=== PATIENT | female | born 1955 | race Caucasian/White ===

== ENCOUNTER 2017-11-29 16:41 | Emergency (ER) | payer MEDICARE, MEDICAID, SELFPAY ==
[2017-11-29 16:53] VITALS: BP 89/53; PULSE 59; RESP 18; TEMP 36.4; O2SAT 95
--- NOTE | 2017-11-29 19:49 | PC.NURSE ---
pt reports no feeling in either foot. believes her shoes do not fit well and caused injury to right 5th toe. pt is amblitory.
--- NOTE | 2017-11-29 19:54 | ED.LOWEXIN ---
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 She thinks she stepped on a needle. She noted a sore yesterday. She denies any fevers, nausea, vomiting, diarrhea. She does have a history of wounds and single wound center. She denies any chest pain or shortness of breath. She states she has new shoes. She says her toe is warm and red. Related Data Home Medications Medication Instructions Recorded Confirmed gabapentin [Neurontin] 300 mg PO QID #0 10/07/12 baclofen 1 tab PO HSP PRN #0 09/23/16 multivitamin [Multiple Vitamins] #0 09/23/16 oxybutynin chloride [Ditropan XL] 15 mg PO QDAY #30 tab 09/23/16 amitriptyline 10 mg PO HS #0 09/21/17 clopidogrel 75 mg PO QDAY #0 09/21/17 Previous Rx's Medication Instructions Recorded tramadol 50 - 100 mg PO Q12HP #120 10/07/12 oxycodone 0 mg PO Q4HP PRN #180 tab 04/14/16 polyethylene glycol 3350 [Miralax] 17 gm PO QDAY PRN #90 gm 05/27/16 atenolol 25 mg PO QDAY #30 tab 01/14/17 albuterol sulfate [Ventolin HFA] 1 - 2 puff INH Q4H #1 inh 02/27/17 cholecalciferol (vitamin D3) 2,000 unit PO QDAY #90 cap 04/27/17 [Vitamin D3] furosemide [Lasix] 20 mg PO BID #60 tab 10/19/17 doxycycline monohydrate 100 mg PO BID 10 Days #20 cap 11/29/17 Allergies Allergy/AdvReac Type Severity Reaction Status Date / Time Aminoglycosides Allergy Mild ? Verified 11/29/17 21:15 [AMINOGLYCOSIDES] ibuprofen [IBUPROFEN] Allergy Mild ? TOXIC Verified 11/29/17 21:15 lamotrigine [LAMOTRIGINE] Allergy Mild ? Verified 11/29/17 21:15 Penicillins [PENICILLINS] Allergy Mild A BABY? Verified 11/29/17 21:15 quetiapine [QUETIAPINE] Allergy Mild ? Verified 11/29/17 21:15 sulfamethoxazole Allergy Unknown Verified 11/29/17 21:15 [From BACTRIM] trimethoprim [From BACTRIM] Allergy Unknown Verified 11/29/17 21:15 acetaminophen [ACETAMINOPHEN] AdvReac Mild ? Verified 11/29/17 21:15 gentamicin [GENTAMICIN] AdvReac Mild EYE Verified 11/29/17 21:15 DROPS-MAKE EYE INFX WORSE lisinopril [LISINOPRIL] AdvReac Mild CAUSES Verified 11/29/17 21:15 PAIN MUSCLE Review of Systems <ASHWIN Goetz - Last Filed: 11/29/17 23:56> Review of Systems GENERAL: Denies chills, fatigue, malaise, fever, sweats. HEENT: Denies sinus pain, ear pain, sore throat, difficulty swallowing, dizziness. RESPIRATORY: Denies dyspnea, cough, wheezing, hemoptysis, sputum. CARDIOVASCULAR: Denies chest pain, palpitations, orthopnea, edema, GASTROINTESTINAL: Denies nausea, vomiting, abdominal pain, diarrhea, constipation, melena. : Denies dysuria, frequency, incontinence, hematuria, urinary retention. MUSCULOSKELETAL: See HPI SKIN: See HPI NEUROLOGIC: Denies weakness, headache, numbness, change in speech, confusion, seizures, incoordination. PSYCHIATRIC: No concerning psychosocial issues. 12 point review of systems is negative except for those stated above Exam <ASHWIN Goetz - Last Filed: 11/29/17 23:56> Narrative Exam Narrative: GENERAL: This is a well-nourished, well-developed patient, in no acute distress HEAD: Atraumatic. Normocephalic. No temporal or scalp tenderness. EYES: Pupils equal round and reactive. Extraocular motions intact. No scleral icterus. No injection or drainage. ENT: Nose without bleeding, purulent drainage or septal hematoma. Throat without erythema, tonsillar hypertrophy or exudate. Uvula midline. Airway patent. NECK: Trachea midline. No JVD or lymphadenopathy. Supple, nontender, no meningeal signs. CARDIOVASCULAR: Regular rate and rhythm without murmurs, gallops, or rubs. RESPIRATORY: Clear to auscultation. Breath sounds equal bilaterally. No wheezes, rales, or rhonchi. GASTROINTESTINAL: Abdomen soft, non-tender, nondistended. No hepato-splenomegaly, or palpable masses. No guarding. EXTREMITIES: No clubbing, cyanosis, or edema. No joint tenderness, effusion, or edema noted. BACK: Nontender without deformity or crepitance. No flank tenderness. NEURO: AOx3. SKIN: 4 mm wound noted on lateral aspect of right 5th toe. Toe is erythematous and warm. Initial Vital Signs Initial Vital Signs: Vital Signs Temperature 97.5 F L 11/29/17 16:53 Pulse Rate 59 L 11/29/17 16:53 Respiratory Rate 18 11/29/17 16:53 Blood Pressure 89/53 L 11/29/17 16:53 Pulse Oximetry 95 11/29/17 16:53 <Juan Rios DO - Last Filed: 11/30/17 01:41> Initial Vital Signs Initial Vital Signs: Vital Signs Temperature 97.5 F L 11/29/17 16:53 Pulse Rate 59 L 11/29/17 16:53 Respiratory Rate 18 11/29/17 16:53 Blood Pressure 89/53 L 11/29/17 16:53 Pulse Oximetry 95 11/29/17 16:53 Course <ASHWIN GoetzBC - Last Filed: 11/29/17 23:56> Hospital Course: Patient presented with concern of wound on right toe. An x-ray was taken. I tried to obtain a wound culture, however there is no discharge to culture. I met with patient several times during her stay. Discussed at length with her return precautions of extending redness fever, nausea, vomiting, diarrhea. Orders Ordered: ED Orders 11/29/17 19:57 XR foot RT min 3V Stat 11/29/17 21:20 Wound Culture and Gram Stain Stat Discontinued Medications Doxycycline Hyclate (Vibramycin) 100 mg PO NOW ONE Stop: 11/29/17 21:09 Last Admin: 11/29/17 21:16 Dose: 100 mg Vital Signs - 8 hr 11/29/17 20:37 Pulse Rate 51 L Respiratory Rate 14 Blood Pressure [Left Wrist] 115/68 Pulse Oximetry 95 <Juan Rios DO - Last Filed: 11/30/17 01:41> Orders Ordered: ED Orders 11/29/17 19:57 XR foot RT min 3V Stat 11/29/17 21:20 Wound Culture and Gram Stain Stat Discontinued Medications Doxycycline Hyclate (Vibramycin) 100 mg PO NOW ONE Stop: 11/29/17 21:09 Last Admin: 11/29/17 21:16 Dose: 100 mg Vital Signs - 8 hr 11/29/17 20:37 Pulse Rate 51 L Respiratory Rate 14 Blood Pressure [Left Wrist] 115/68 Pulse Oximetry 95 MDM - Extremity Injury (Lower) <JAMIE Goetz - Last Filed: 11/29/17 23:56> Imaging Data right foot xray: Radiologist's impression: [address] [address] XRay Report Signed Patient: Roselia Mckay MR#: [id number] : 1955 Acct:[id number] Age/Sex: 62 / F Date of Service: 11/29/17 Loc: ED Accession Number: [id number] Procedure: XR foot RT min 3V Ordering Provider: Amalia Matthews PROCEDURE: XR FOOT RT MIN 3V INDICATIONS: wound 5th digit, ? FB- pt thinks there may be needle in it TECHNIQUE: 3 views of the foot were acquired. COMPARISON: None. FINDINGS: Bones: No fractures or dislocations. No suspicious bony lesions. Soft tissues: There soft tissue swelling of the left fifth digit. No unexpected radiopaque foreign bodies. IMPRESSION: Soft tissue swelling of the fifth digit. No unexpected radiopaque foreign bodies. Dictated by: Briana Blanco M.D. on 11/29/2017 at 20:26 Approved by: Briana Blanco M.D. on 11/29/2017 at 20:27 [facility] Narrative Medical decision making narrative: X-ray illustrated no foreign body. Given her exam I elected to start her on antibiotics for cellulitis. I chose doxycycline given her allergies and intolerance of other antibiotics. She states she tolerates doxycycline well. I discussed follow-up if worsening, extending redness, fever, nausea vomiting diarrhea. Patient states she will follow up with her primary care provider. Given her history of nonhealing wounds, I am concerned that she will need another wound care referral. Denies questions or concerns upon discharge. Discharge Plan Departure Patient Disposition: Home, Self-Care Clinical Impression: Cellulitis Discharge Date/Time: 11/29/17 21:55 Interventions: ED Discharge Assessment Last Done: 11/29/17 21:54 Instructions: DI for Cellulitis -- Adult Activity Restrictions/Additional Instructions: I am starting you on antibiotics for an infection. Aware sun screen with this antibiotic. I would like you to follow up with your primary care provider. Please be evaluated if the redness starts extending, your wound starts weeping or oozing, or you develop any fevers, nausea, vomiting, diarrhea. You can take [id number] medications as needed and able for pain. I would like you to rest your foot, keep it elevated, do not walk a lot at this point in time while it is healing. I would like you to be sure that you are wearing well fitting shoes that do not worsen the wound. Keep you have toe clean, dry and do not put it in dirty water as in a swimming pool, linares or tub. Prescriptions: New doxycycline monohydrate 100 mg capsule 100 mg PO BID 10 Days Qty: 20 RF: 0 No Action gabapentin [Neurontin] 300 MG capsule 300 mg PO QID Qty: 0 RF: 0 tramadol 50 MG tablet 50 - 100 mg PO Q12HP Qty: 120 RF: 0 oxycodone 5 MG tablet PO Q4HP PRNQty: 180 RF: 0 polyethylene glycol 3350 [Miralax] 17 GM powder in packet 17 gm PO QDAY PRNQty: 90 RF: 3 oxybutynin chloride [Ditropan XL] 15 MG tablet extended release 24hr 15 mg PO QDAY Qty: 30 RF: 3 baclofen 10 MG tablet 1 tab PO HSP PRNQty: 0 RF: 0 multivitamin [Multiple Vitamins] 1 EACH tablet Qty: 0 RF: 0 atenolol 25 MG tablet 25 mg PO QDAY Qty: 30 RF: 12 albuterol sulfate [Ventolin HFA] 90 MCG/PUFF HFA aerosol inhaler 1 - 2 puff INH Q4H Qty: 1 RF: 2 cholecalciferol (vitamin D3) [Vitamin D3] 2,000 UNIT capsule 2,000 unit PO QDAY Qty: 90 RF: 3 clopidogrel 75 MG tablet 75 mg PO QDAY Qty: 0 RF: 0 amitriptyline 10 MG tablet 10 mg PO HS Qty: 0 RF: 0 furosemide [Lasix] 20 MG tablet 20 mg PO BID Qty: 60 RF: 0 Referrals: Geovanna Lewis MD [Primary Care Provider] - <Juan Rios DO - Last Filed: 11/30/17 01:41> Cosign ED Attending Ceciature Attestation: I was immediately available in the department for consultation. Documentation has been reviewed. I agree with assessment and plan.
--- NOTE | 2017-11-29 19:57 | DI.RAD.S_ITS ---
PROCEDURE: XR FOOT RT MIN 3V INDICATIONS: wound 5th digit, ? FB- pt thinks there may be needle in it TECHNIQUE: 3 views of the foot were acquired. COMPARISON: None. FINDINGS: Bones: No fractures or dislocations. No suspicious bony lesions. Soft tissues: There soft tissue swelling of the left fifth digit. No unexpected radiopaque foreign bodies. IMPRESSION: Soft tissue swelling of the fifth digit. No unexpected radiopaque foreign bodies. Dictated by: Briana Blanco M.D. on 11/29/2017 at 20:26 Approved by: Briana Blanco M.D. on 11/29/2017 at 20:27
[2017-11-29 20:37] VITALS: BP 115/68; PULSE 51; RESP 14; O2SAT 95
[2017-11-29] MEDS: DOXYCYCLINE HYCLATE 100 MG TABLET PO (21:16)
--- NOTE | 2017-11-29 23:56 | ED_ITS ---
HPI - Extremity Injury (Lower) <Amalia Matthews, [employer]-BC - Last Filed: 11/29/17 23:56> General Chief Complaint: Extremity Injury, Lower Stated Complaint: right leg swelling,thinks needle stuck in right fo Time Seen by Provider: 11/29/17 18:37 Source: patient Mode of arrival: ambulatory Limitations: no limitations History of Present Illness HPI Narrative: Patient presents with chief complaint of 5th toe pain on her right foot. She thinks she stepped on a needle. She noted a sore yesterday. She denies any fevers, nausea, vomiting, diarrhea. She does have a history of wounds and single wound center. She denies any chest pain or shortness of breath. She states she has new shoes. She says her toe is warm and red. Related Data Home Medications Medication Instructions Recorded Confirmed gabapentin [Neurontin] 300 mg PO QID #0 10/07/12 baclofen 1 tab PO HSP PRN #0 09/23/16 multivitamin [Multiple Vitamins] #0 09/23/16 oxybutynin chloride [Ditropan XL] 15 mg PO QDAY #30 tab 09/23/16 amitriptyline 10 mg PO HS #0 09/21/17 clopidogrel 75 mg PO QDAY #0 09/21/17 Previous Rx's Medication Instructions Recorded tramadol 50 - 100 mg PO Q12HP #120 10/07/12 oxycodone 0 mg PO Q4HP PRN #180 tab 04/14/16 polyethylene glycol 3350 [Miralax] 17 gm PO QDAY PRN #90 gm 05/27/16 atenolol 25 mg PO QDAY #30 tab 01/14/17 albuterol sulfate [Ventolin HFA] 1 - 2 puff INH Q4H #1 inh 02/27/17 cholecalciferol (vitamin D3) 2,000 unit PO QDAY #90 cap 04/27/17 [Vitamin D3] furosemide [Lasix] 20 mg PO BID #60 tab 10/19/17 doxycycline monohydrate 100 mg PO BID 10 Days #20 cap 11/29/17 Allergies Allergy/AdvReac Type Severity Reaction Status Date / Time Aminoglycosides Allergy Mild ? Verified 11/29/17 21:15 [AMINOGLYCOSIDES] ibuprofen [IBUPROFEN] Allergy Mild ? TOXIC Verified 11/29/17 21:15 lamotrigine [LAMOTRIGINE] Allergy Mild ? Verified 11/29/17 21:15 Penicillins [PENICILLINS] Allergy Mild A BABY? Verified 11/29/17 21:15 quetiapine [QUETIAPINE] Allergy Mild ? Verified 11/29/17 21:15 sulfamethoxazole Allergy Unknown Verified 11/29/17 21:15 [From BACTRIM] trimethoprim [From BACTRIM] Allergy Unknown Verified 11/29/17 21:15 acetaminophen [ACETAMINOPHEN] AdvReac Mild ? Verified 11/29/17 21:15 gentamicin [GENTAMICIN] AdvReac Mild EYE Verified 11/29/17 21:15 DROPS-MAKE EYE INFX WORSE lisinopril [LISINOPRIL] AdvReac Mild CAUSES Verified 11/29/17 21:15 PAIN MUSCLE Review of Systems <ASHWIN Goetz - Last Filed: 11/29/17 23:56> Review of Systems GENERAL: Denies chills, fatigue, malaise, fever, sweats. HEENT: Denies sinus pain, ear pain, sore throat, difficulty swallowing, dizziness. RESPIRATORY: Denies dyspnea, cough, wheezing, hemoptysis, sputum. CARDIOVASCULAR: Denies chest pain, palpitations, orthopnea, edema, GASTROINTESTINAL: Denies nausea, vomiting, abdominal pain, diarrhea, constipation, melena. : Denies dysuria, frequency, incontinence, hematuria, urinary retention. MUSCULOSKELETAL: See HPI SKIN: See HPI NEUROLOGIC: Denies weakness, headache, numbness, change in speech, confusion, seizures, incoordination. PSYCHIATRIC: No concerning psychosocial issues. 12 point review of systems is negative except for those stated above Exam <ASHWIN Goetz - Last Filed: 11/29/17 23:56> Narrative Exam Narrative: GENERAL: This is a well-nourished, well-developed patient, in no acute distress HEAD: Atraumatic. Normocephalic. No temporal or scalp tenderness. EYES: Pupils equal round and reactive. Extraocular motions intact. No scleral icterus. No injection or drainage. ENT: Nose without bleeding, purulent drainage or septal hematoma. Throat without erythema, tonsillar hypertrophy or exudate. Uvula midline. Airway patent. NECK: Trachea midline. No JVD or lymphadenopathy. Supple, nontender, no meningeal signs. CARDIOVASCULAR: Regular rate and rhythm without murmurs, gallops, or rubs. RESPIRATORY: Clear to auscultation. Breath sounds equal bilaterally. No wheezes , rales, or rhonchi. GASTROINTESTINAL: Abdomen soft, non-tender, nondistended. No hepato-splenomegaly , or palpable masses. No guarding. EXTREMITIES: No clubbing, cyanosis, or edema. No joint tenderness, effusion, or edema noted. BACK: Nontender without deformity or crepitance. No flank tenderness. NEURO: AOx3. SKIN: 4 mm wound noted on lateral aspect of right 5th toe. Toe is erythematous and warm. Initial Vital Signs Initial Vital Signs: Vital Signs Temperature 97.5 F L 11/29/17 16:53 Pulse Rate 59 L 11/29/17 16:53 Respiratory Rate 18 11/29/17 16:53 Blood Pressure 89/53 L 11/29/17 16:53 Pulse Oximetry 95 11/29/17 16:53 <Juan Rios DO - Last Filed: 11/30/17 01:41> Initial Vital Signs Initial Vital Signs: Vital Signs Temperature 97.5 F L 11/29/17 16:53 Pulse Rate 59 L 11/29/17 16:53 Respiratory Rate 18 11/29/17 16:53 Blood Pressure 89/53 L 11/29/17 16:53 Pulse Oximetry 95 11/29/17 16:53 Course <ASHWIN GoetzBC - Last Filed: 11/29/17 23:56> Hospital Course: Patient presented with concern of wound on right toe. An x-ray was taken. I tried to obtain a wound culture, however there is no discharge to culture. I met with patient several times during her stay. Discussed at length with her return precautions of extending redness fever, nausea, vomiting, diarrhea. Orders Ordered: ED Orders 11/29/17 19:57 XR foot RT min 3V Stat 11/29/17 21:20 Wound Culture and Gram Stain Stat Discontinued Medications Doxycycline Hyclate (Vibramycin) 100 mg PO NOW ONE Stop: 11/29/17 21:09 Last Admin: 11/29/17 21:16 Dose: 100 mg Vital Signs - 8 hr 11/29/17 20:37 Pulse Rate 51 L Respiratory Rate 14 Blood Pressure [Left Wrist] 115/68 Pulse Oximetry 95 <Juan Rios DO - Last Filed: 11/30/17 01:41> Orders Ordered: ED Orders 11/29/17 19:57 XR foot RT min 3V Stat 11/29/17 21:20 Wound Culture and Gram Stain Stat Discontinued Medications Doxycycline Hyclate (Vibramycin) 100 mg PO NOW ONE Stop: 11/29/17 21:09 Last Admin: 11/29/17 21:16 Dose: 100 mg Vital Signs - 8 hr 11/29/17 20:37 Pulse Rate 51 L Respiratory Rate 14 Blood Pressure [Left Wrist] 115/68 Pulse Oximetry 95 MDM - Extremity Injury (Lower) <JAMIE Goetz - Last Filed: 11/29/17 23:56> Imaging Data right foot xray: Radiologist's impression: [address] [address] XRay Report Signed Patient: Roselia Mckay MR#: [id number] : 1955 Acct:[id number] Age/Sex: 62 / F Date of Service: 11/29/17 Loc: ED Accession Number: [id number] Procedure: XR foot RT min 3V Ordering Provider: Amalia Matthews PROCEDURE: XR FOOT RT MIN 3V INDICATIONS: wound 5th digit, ? FB- pt thinks there may be needle in it TECHNIQUE: 3 views of the foot were acquired. COMPARISON: None. FINDINGS: Bones: No fractures or dislocations. No suspicious bony lesions. Soft tissues: There soft tissue swelling of the left fifth digit. No unexpected radiopaque foreign bodies. IMPRESSION: Soft tissue swelling of the fifth digit. No unexpected radiopaque foreign bodies. Dictated by: Briana Blanco M.D. on 11/29/2017 at 20:26 Approved by: Briana Blanco M.D. on 11/29/2017 at 20:27 [facility] Narrative Medical decision making narrative: X-ray illustrated no foreign body. Given her exam I elected to start her on antibiotics for cellulitis. I chose doxycycline given her allergies and intolerance of other antibiotics. She states she tolerates doxycycline well. I discussed follow-up if worsening, extending redness, fever, nausea vomiting diarrhea. Patient states she will follow up with her primary care provider. Given her history of nonhealing wounds, I am concerned that she will need another wound care referral. Denies questions or concerns upon discharge. Discharge Plan Departure Patient Disposition: Home, Self-Care Clinical Impression: Cellulitis Discharge Date/Time: 11/29/17 21:55 Interventions: ED Discharge Assessment Last Done: 11/29/17 21:54 Instructions: DI for Cellulitis -- Adult Activity Restrictions/Additional Instructions: I am starting you on antibiotics for an infection. Aware sun screen with this antibiotic. I would like you to follow up with your primary care provider. Please be evaluated if the redness starts extending, your wound starts weeping or oozing, or you develop any fevers, nausea, vomiting, diarrhea. You can take [id number] medications as needed and able for pain. I would like you to rest your foot, keep it elevated, do not walk a lot at this point in time while it is healing. I would like you to be sure that you are wearing well fitting shoes that do not worsen the wound. Keep you have toe clean, dry and do not put it in dirty water as in a swimming pool, linares or tub. Prescriptions: New doxycycline monohydrate 100 mg capsule 100 mg PO BID 10 Days Qty: 20 RF: 0 No Action gabapentin [Neurontin] 300 MG capsule 300 mg PO QID Qty: 0 RF: 0 tramadol 50 MG tablet 50 - 100 mg PO Q12HP Qty: 120 RF: 0 oxycodone 5 MG tablet PO Q4HP PRNQty: 180 RF: 0 polyethylene glycol 3350 [Miralax] 17 GM powder in packet 17 gm PO QDAY PRNQty: 90 RF: 3 oxybutynin chloride [Ditropan XL] 15 MG tablet extended release 24hr 15 mg PO QDAY Qty: 30 RF: 3 baclofen 10 MG tablet 1 tab PO HSP PRNQty: 0 RF: 0 multivitamin [Multiple Vitamins] 1 EACH tablet Qty: 0 RF: 0 atenolol 25 MG tablet 25 mg PO QDAY Qty: 30 RF: 12 albuterol sulfate [Ventolin HFA] 90 MCG/PUFF HFA aerosol inhaler 1 - 2 puff INH Q4H Qty: 1 RF: 2 cholecalciferol (vitamin D3) [Vitamin D3] 2,000 UNIT capsule 2,000 unit PO QDAY Qty: 90 RF: 3 clopidogrel 75 MG tablet 75 mg PO QDAY Qty: 0 RF: 0 amitriptyline 10 MG tablet 10 mg PO HS Qty: 0 RF: 0 furosemide [Lasix] 20 MG tablet 20 mg PO BID Qty: 60 RF: 0 Referrals: Geovanna Lewis MD [Primary Care Provider] - <Juan Rios DO - Last Filed: 11/30/17 01:41> Cosign ED Attending Ceciature Attestation: I was immediately available in the department for consultation. Documentation has been reviewed. I agree with assessment and plan.
== END 2017-11-29 21:55 | disposition home or self-care (01) ==
PROVIDERS: Emergency Provider Nurse Practitioner Family; Family Provider Family Medicine; PCP Family Medicine
DX: L03.115 Cellulitis of right lower limb (principal)
CPT/HCPCS: 73630; 87070; 87075; 87077; 87147; 87186; 87205; 99283; 99284

== ENCOUNTER → 2017-12-02 08:26 | Outpatient (CLI) | payer MEDICARE, MEDICAID, SELFPAY | PROVIDERS: Family Provider Family Medicine; PCP Family Medicine; Visit Provider Internal Medicine | DX: L97.512 Non-pressure chronic ulcer of other part of right foot with fat layer exposed (principal); L03.031 Cellulitis of right toe; R73.9 Hyperglycemia, unspecified | CPT/HCPCS: 11042 ==

== ENCOUNTER → 2017-12-02 09:51 | Outpatient (CLI) | payer MEDICARE, MEDICAID, SELFPAY ==
[2017-12-02 11:09] LABS: Hemoglobin A1C% w Est Avg Glu 5.4 % (4.0-6.0)
== END ==
PROVIDERS: Family Provider Family Medicine; PCP Family Medicine; Visit Provider Internal Medicine
DX: E11.621 Type 2 diabetes mellitus with foot ulcer (principal)
CPT/HCPCS: 36415; 83036

== ENCOUNTER → 2017-12-07 14:44 | Outpatient (CLI) | payer MEDICARE, MEDICAID, SELFPAY ==
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
== END ==
PROVIDERS: Family Provider Family Medicine; PCP Family Medicine; Visit Provider Internal Medicine
DX: L97.512 Non-pressure chronic ulcer of other part of right foot with fat layer exposed (principal); L02.611 Cutaneous abscess of right foot; R73.9 Hyperglycemia, unspecified
CPT/HCPCS: 11042

== ENCOUNTER → 2017-12-15 10:05 | Outpatient (CLI) | payer MEDICARE, MEDICAID, SELFPAY ==
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
== END ==
PROVIDERS: Family Provider Family Medicine; PCP Family Medicine; Visit Provider Physician Assistant
DX: L97.512 Non-pressure chronic ulcer of other part of right foot with fat layer exposed (principal); L97.521 Non-pressure chronic ulcer of other part of left foot limited to breakdown of skin; L03.031 Cellulitis of right toe; L03.032 Cellulitis of left toe
CPT/HCPCS: 11042; 87070; 87077; 87186; 87205; 97597

== ENCOUNTER → 2017-12-18 15:50 | Outpatient (CLI) | payer MEDICARE, MEDICAID, SELFPAY ==
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
== END ==
PROVIDERS: Family Provider Family Medicine; PCP Family Medicine; Visit Provider Physician Assistant
DX: L97.512 Non-pressure chronic ulcer of other part of right foot with fat layer exposed (principal); L03.031 Cellulitis of right toe; R30.0 Dysuria; R53.81 Other malaise
CPT/HCPCS: 11042

== ENCOUNTER → 2017-12-22 09:01 | Outpatient (CLI) | payer MEDICARE, MEDICAID, SELFPAY | PROVIDERS: Family Provider Family Medicine; PCP Family Medicine; Visit Provider Internal Medicine | DX: L97.512 Non-pressure chronic ulcer of other part of right foot with fat layer exposed (principal); L02.611 Cutaneous abscess of right foot | CPT/HCPCS: 11042 ==

== ENCOUNTER → 2018-01-01 14:32 | Outpatient (CLI) | payer MEDICARE, MEDICAID, SELFPAY | PROVIDERS: Family Provider Family Medicine; PCP Family Medicine; Visit Provider Internal Medicine | DX: L97.512 Non-pressure chronic ulcer of other part of right foot with fat layer exposed (principal); Z91.19 Patient's noncompliance with other medical treatment and regimen | CPT/HCPCS: 11042; 87070; 87075; 87077; 87147; 87186; 87205 ==

== ENCOUNTER → 2018-01-07 09:28 | Outpatient (CLI) | payer MEDICARE, MEDICAID, SELFPAY ==
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
== END ==
PROVIDERS: Family Provider Family Medicine; PCP Family Medicine; Visit Provider Internal Medicine
DX: L97.512 Non-pressure chronic ulcer of other part of right foot with fat layer exposed (principal); B95.61 Methicillin susceptible Staphylococcus aureus infection as the cause of diseases classified elsewhere
CPT/HCPCS: 11042

== ENCOUNTER 2018-01-09 19:11 | Emergency (ER) | payer MEDICARE, MEDICAID, SELFPAY ==
[2018-01-09 19:24] VITALS: BP 106/69; PULSE 66; RESP 20; TEMP 37.1; O2SAT 95
--- NOTE | 2018-01-09 19:46 | DI.RAD.S_ITS ---
PROCEDURE: XR FOOT LT MIN 3V INDICATIONS: pain, injury TECHNIQUE: 3 views of the foot were acquired. COMPARISON: None. FINDINGS: Bones: No fractures or dislocations. No suspicious bony lesions. Ununited chronic accessory navicular. Mild first MTP joint degeneration. Tibiotalar and talonavicular degenerative joint disease. 3 mm lucency at the lateral base of the proximal phalanx of the great toe. Soft tissues: No tibiotalar joint effusion. Achilles tendon appears normal. IMPRESSION: No fracture. Degenerative changes as above. Dictated by: Kieran Shields M.D. on 01/09/2018 at 20:40 Approved by: Kieran Shields M.D. on 01/09/2018 at 20:43
--- NOTE | 2018-01-09 19:46 | DI.RAD.S_ITS ---
PROCEDURE: XR ANKLE LT MIN 3V INDICATIONS: pain/injury TECHNIQUE: 3 views of the ankle were acquired. COMPARISON: None. FINDINGS: Bones: No fractures or dislocations. Ankle mortise is normally aligned. No suspicious bony lesions. Mild posterior calcaneal spur. Chronic corticated 2 mm ossicle at the medial malleolus suggestive of chronic fracture fragment. Soft tissues: No tibiotalar joint effusion. Achilles tendon appears normal. IMPRESSION: No acute fracture identified. Soft tissue swelling primarily overlying the medial malleolus. 2 mm corticated ossicle adjacent to the medial malleolus appears chronic, possibly from remote trauma Dictated by: Kieran Shields M.D. on 01/09/2018 at 20:37 Approved by: Kieran Shields M.D. on 01/09/2018 at 20:39
--- NOTE | 2018-01-09 20:01 | ED.LOWEXIN ---
HPI - Extremity Injury (Lower) <Jody Gonzalez PA-C - Last Filed: 01/09/18 22:03> General Chief Complaint: Extremity Injury, Lower Stated Complaint: THINKS SHE BROKE HER LEFT LEG Time Seen by Provider: 01/09/18 19:42 Source: patient Mode of arrival: wheelchair Limitations: no limitations History of Present Illness HPI Narrative: This 62-year-old female comes in due to left ankle pain and swelling. She states that she contused her left ankle when walking up steps, she thinks about 5 days ago but others told her it was 10 days ago. She states she bumped the ankle and rolled the foot (thinks she inverted it but not sure). She thinks she bumped her knee as well. She states she did not fall, did not have any other injuries such as head contusion. She had been walking on it initially, but states she has had gradually worsening swelling, pain, and redness, now hurting on both sides of her ankle. She denies any other injury. She states that she has had chills, has not taken her temperature. She notes that she has been following at the wound Center for infection on her right foot and has been on doxycycline for staph infection. She states that it can be difficult for her to determine the pain level with new injuries due to her neuropathy. She states she has been otherwise well, denies any dyspnea, chest pain, appetite change. She states that she has had some redness in the left leg and notes the redness on her chester was present at her last wound Center visit Related Data Home Medications Medication Instructions Recorded Confirmed gabapentin [Neurontin] 300 mg PO QID #0 10/07/12 12/29/17 baclofen 1 tab PO HSP PRN #0 09/23/16 12/29/17 multivitamin [Multiple Vitamins] #0 09/23/16 12/29/17 oxybutynin chloride [Ditropan XL] 15 mg PO QDAY #30 tab 09/23/16 12/29/17 amitriptyline 10 mg PO HS #0 09/21/17 12/29/17 clopidogrel 75 mg PO QDAY #0 09/21/17 12/29/17 Previous Rx's Medication Instructions Recorded tramadol 50 - 100 mg PO Q12HP #120 10/07/12 oxycodone 0 mg PO Q4HP PRN #180 tab 04/14/16 polyethylene glycol 3350 [Miralax] 17 gm PO QDAY PRN #90 gm 05/27/16 atenolol 25 mg PO QDAY #30 tab 01/14/17 albuterol sulfate [Ventolin HFA] 1 - 2 puff INH Q4H #1 inh 02/27/17 cholecalciferol (vitamin D3) 2,000 unit PO QDAY #90 cap 04/27/17 [Vitamin D3] furosemide [Lasix] 20 mg PO BID #60 tab 10/19/17 venlafaxine ER 75 mg 75 mg PO TID #90 cap 12/29/17 capsule,extended release 24 hr Allergies Allergy/AdvReac Type Severity Reaction Status Date / Time Aminoglycosides Allergy Mild ? Verified 11/29/17 21:15 [AMINOGLYCOSIDES] ibuprofen [IBUPROFEN] Allergy Mild ? TOXIC Verified 11/29/17 21:15 lamotrigine [LAMOTRIGINE] Allergy Mild ? Verified 11/29/17 21:15 Penicillins [PENICILLINS] Allergy Mild A BABY? Verified 11/29/17 21:15 quetiapine [QUETIAPINE] Allergy Mild ? Verified 11/29/17 21:15 Sulfa (Sulfonamide Allergy Mild rash Verified 12/18/17 15:41 Antibiotics) sulfamethoxazole Allergy Unknown Verified 11/29/17 21:15 [From BACTRIM] trimethoprim [From BACTRIM] Allergy Unknown Verified 11/29/17 21:15 acetaminophen [ACETAMINOPHEN] AdvReac Mild ? Verified 11/29/17 21:15 gentamicin [GENTAMICIN] AdvReac Mild EYE Verified 11/29/17 21:15 DROPS-MAKE EYE INFX WORSE lisinopril [LISINOPRIL] AdvReac Mild CAUSES Verified 11/29/17 21:15 PAIN MUSCLE Review of Systems <Jody Gonzalez PA-C - Last Filed: 01/09/18 22:03> Review of Systems All systems reviewed & are unremarkable except as noted in HPI and below Exam <Jody Gonzalez PA-C - Last Filed: 01/09/18 22:03> Narrative Exam Narrative: GENERAL APPEARANCE: Patient sitting comfortably, in no distress. LUNGS: Clear to auscultation bilaterally. HEART: Rate and rhythm regular without murmur, normal S1 and S2, no S3 or S4. DERMATOLOGIC: Patchy pink erythema on the left inferior and mid central chester, as well as pink erythema on the left lateral >medial foot. She does have some skin breaks between the toes. Mildly warm to touch MUSCULOSKELETAL: Moderate left ankle effusion, more prominent over the lateral malleolus. She is tender around and inferior to the lateral malleolus more than on the medial. Minimally tender over the proximal lateral metatarsals, no point tenderness elsewhere. She has full range of motion at the knee, full range of motion at the ankle nonweightbearing with tenderness at endpoints, full plantar and dorsiflexion of the toes with strength intact against resistance. NEUROVASCULAR: Right foot toes are warm and pink, sensation grossly intact Initial Vital Signs Initial Vital Signs: Vital Signs Temperature 98.8 F 01/09/18 19:24 Pulse Rate 66 01/09/18 19:24 Respiratory Rate 20 01/09/18 19:24 Blood Pressure 106/69 01/09/18 19:24 Pulse Oximetry 95 01/09/18 19:24 <Juan Rios DO - Last Filed: 01/10/18 02:26> Initial Vital Signs Initial Vital Signs: Vital Signs Temperature 98.8 F 01/09/18 19:24 Pulse Rate 66 01/09/18 19:24 Respiratory Rate 20 01/09/18 19:24 Blood Pressure 106/69 01/09/18 19:24 Pulse Oximetry 95 01/09/18 19:24 Course <Jody Gonzalez PA-C - Last Filed: 01/09/18 22:03> Additional Information: Reviewed recent cultures from wound care which show Staph aureus susceptible to multiple antibiotics. Patient states that she only started doxycycline in the last 2 days, so reasonable for her to continue this and monitor the left chester erythema. Suspect her ankle pain and effusion are all from her recent injury. Discussed appearance of probable old fracture on the medial side as well as arthritis likely exacerbating her symptoms. She was able to ambulate with an Sukumar wrap and gel splint for the ankle. She is agreeable with return if any acutely worsening symptoms and margins of the erythema were inked so she can monitor Orders Ordered: ED Orders 01/09/18 19:46 XR ankle LT min 3V Stat XR foot LT min 3V Stat Vital Signs - 8 hr 01/09/18 19:24 01/09/18 20:19 07/14/18 21:45 Temperature 98.8 F 98.8 F Pulse Rate 66 66 60 Respiratory Rate 20 20 18 Blood Pressure 106/69 106/69 Blood Pressure [Left Arm] 97/60 Pulse Oximetry 95 95 93 <Juan Rios DO - Last Filed: 01/10/18 02:26> Orders Ordered: ED Orders 01/09/18 19:46 XR ankle LT min 3V Stat XR foot LT min 3V Stat Vital Signs - 8 hr 01/09/18 19:24 01/09/18 20:19 01/09/18 21:45 Temperature 98.8 F 98.8 F Pulse Rate 66 66 60 Respiratory Rate 18 Blood Pressure 106/69 106/69 Blood Pressure [Left Arm] 97/60 Pulse Oximetry 95 95 93 MDM - Extremity Injury (Lower) <Jody Gonzalez PA-C - Last Filed: 01/09/18 22:03> Imaging Data extremity: Radiologist's impression: [address] [address] XRay Report Signed Patient: Roselia Mckay MR#: [id number] : 1955 Acct:[id number] Age/Sex: 62 / F Date of Service: 01/09/18 Loc: ED Accession Number: [id number] Procedure: XR foot LT min 3V Ordering Provider: Jody Gonzalez P.A-C PROCEDURE: XR FOOT LT MIN 3V INDICATIONS: pain, injury TECHNIQUE: 3 views of the foot were acquired. COMPARISON: None. FINDINGS: Bones: No fractures or dislocations. No suspicious bony lesions. Ununited chronic accessory navicular. Mild first MTP joint degeneration. Tibiotalar and talonavicular degenerative joint disease. 3 mm lucency at the lateral base of the proximal phalanx of the great toe. Soft tissues: No tibiotalar joint effusion. Achilles tendon appears normal. IMPRESSION: No fracture. Degenerative changes as above. Dictated by: Kieran Shields M.D. on 01/09/2018 at 20:40 Approved by: Kieran Shields M.D. on 01/09/2018 at 20:[address] [address] XRay Report Signed Patient: Roselia Mckay MR#: [id number] : 1955 Acct:[id number] Age/Sex: 62 / F Date of Service: 01/09/18 Loc: ED Accession Number: [id number] Procedure: XR ankle LT min 3V Ordering Provider: Jody Gonzalez P.A-C PROCEDURE: XR ANKLE LT MIN 3V INDICATIONS: pain/injury TECHNIQUE: 3 views of the ankle were acquired. COMPARISON: None. FINDINGS: Bones: No fractures or dislocations. Ankle mortise is normally aligned. No suspicious bony lesions. Mild posterior calcaneal spur. Chronic corticated 2 mm ossicle at the medial malleolus suggestive of chronic fracture fragment. Soft tissues: No tibiotalar joint effusion. Achilles tendon appears normal. IMPRESSION: No acute fracture identified. Soft tissue swelling primarily overlying the medial malleolus. 2 mm corticated ossicle adjacent to the medial malleolus appears chronic, possibly from remote trauma Dictated by: Kieran Shields M.D. on 01/09/2018 at 20:37 Approved by: Kieran Shields M.D. on 01/09/2018 at 20:39 Discharge Plan Departure Patient Disposition: Home, Self-Care Clinical Impression: Ankle sprain, Cellulitis of left lower leg Discharge Date/Time: 01/09/18 22:04 Interventions: ED Discharge Assessment Last Done: 01/09/18 22:04 Instructions: DI for Cellulitis -- Adult, DI for Ankle Sprain Activity Restrictions/Additional Instructions: Gentle walking on your left foot and ankle is okay as tolerated, but try to avoid long periods on your feet and elevate your leg above your heart as much as possible. Wear the Sukumar wrap and ankle splint when you are walking. Continue your usual pain medicines. You should schedule a follow-up with your PCP in the next week or so to assess your progress and determine whether any further treatment is needed as it looked like you have some arthritis as well as perhaps an old fracture on the inside of your ankle on the x-ray today, but no acute findings. In addition, it looks like you may have an early skin infection on your left chester. Since you have already started on the doxycycline for your right foot, please continue this. You should return as we talked about if any acutely worsening symptoms, otherwise please follow up with wound care next week Prescriptions: No Action gabapentin [Neurontin] 300 MG capsule 300 mg PO QID Qty: 0 RF: 0 tramadol 50 MG tablet 50 - 100 mg PO Q12HP Qty: 120 RF: 0 oxycodone 5 MG tablet PO Q4HP PRNQty: 180 RF: 0 polyethylene glycol 3350 [Miralax] 17 GM powder in packet 17 gm PO QDAY PRNQty: 90 RF: 3 oxybutynin chloride [Ditropan XL] 15 MG tablet extended release 24hr 15 mg PO QDAY Qty: 30 RF: 3 baclofen 10 MG tablet 1 tab PO HSP PRNQty: 0 RF: 0 multivitamin [Multiple Vitamins] 1 EACH tablet Qty: 0 RF: 0 atenolol 25 MG tablet 25 mg PO QDAY Qty: 30 RF: 12 albuterol sulfate [Ventolin HFA] 90 MCG/PUFF HFA aerosol inhaler 1 - 2 puff INH Q4H Qty: 1 RF: 2 cholecalciferol (vitamin D3) [Vitamin D3] 2,000 UNIT capsule 2,000 unit PO QDAY Qty: 90 RF: 3 clopidogrel 75 MG tablet 75 mg PO QDAY Qty: 0 RF: 0 amitriptyline 10 MG tablet 10 mg PO HS Qty: 0 RF: 0 furosemide [Lasix] 20 MG tablet 20 mg PO BID Qty: 60 RF: 0 venlafaxine [Effexor XR] 75 mg capsule,extended release 24hr 75 mg PO TID Qty: 90 RF: 2 Referrals: Crow Haynes MD [Physician] - Geovanna Lewis MD [Primary Care Provider] - <Juan Rios DO - Last Filed: 01/10/18 02:26> Cosign ED Attending Bam Attestation: I was immediately available in the department for consultation. Documentation has been reviewed. I agree with assessment and plan.
[2018-01-09 20:19] VITALS: BP 106/69; PULSE 66; RESP 20; TEMP 37.1; O2SAT 95
[2018-01-09 21:45] VITALS: BP 97/60; PULSE 60; RESP 18; O2SAT 93
== END 2018-01-09 22:04 | disposition home or self-care (01) ==
PROVIDERS: Emergency Provider Internal Medicine; Family Provider Family Medicine; PCP Family Medicine
DX: S93.402A Sprain of unspecified ligament of left ankle, initial encounter (principal); L03.116 Cellulitis of left lower limb; W10.9XXA Fall (on) (from) unspecified stairs and steps, initial encounter
CPT/HCPCS: 29540; 73610; 73630; 99283

== ENCOUNTER → 2018-01-19 11:38 | Outpatient (CLI) | payer MEDICARE, MEDICAID, SELFPAY ==
--- NOTE | 2018-01-19 11:42 | DI.RAD.S_ITS ---
PROCEDURE: XR TIBIA FIBULA RT 2V INDICATIONS: Left tibia pain after fall on stairs. TECHNIQUE: 2 views of the tibia and fibula were acquired. COMPARISON: None. FINDINGS: Bones: No fractures or dislocations. No suspicious bony lesions. Soft tissues: No suspicious soft tissue calcifications or masses. IMPRESSION: No acute fracture or dislocation of the left tibia and fibula identified. Dictated by: Eran Connelly M.D. on 01/19/2018 at 12:23 Approved by: Eran Connelly M.D. on 01/19/2018 at 12:26
== END ==
PROVIDERS: Family Provider Family Medicine; PCP Family Medicine; Visit Provider Family Medicine
DX: M79.662 Pain in left lower leg (principal)
CPT/HCPCS: 73590

== ENCOUNTER → 2018-01-26 08:10 | Outpatient (CLI) | payer MEDICARE, MEDICAID, SELFPAY ==
--- NOTE | 2018-01-26 | DI.MRI.S_ITS ---
PROCEDURE: MR ANKLE LT WO CON INDICATIONS: SPRAIN OF LEFT ANKLE LIGAMENTS TECHNIQUE: Noncontrast sagittal T1 spin echo and T2 fast spin echo with fat saturation, axial proton density fast spin echo and T2 fast spin echo with fat saturation, coronal T1 spin echo and T2 fast spin echo with fat saturation through the ankle/hindfoot. COMPARISON: [facility], CR, XR TIBIA FIBULA LT 2V, 01/19/2018, 11:49. [facility], CR, XR FOOT LT MIN 3V, 01/09/2018, 19:29. [facility], CR, XR ANKLE LT MIN 3V, 01/09/2018, 19:26. FINDINGS: Image quality: Excellent. Bones and joints: There is dislocation of the talonavicular joint, with plantar flexion of the talus. This appears new since 01/09/18. There is diffuse marrow edema throughout the hindfoot and mid foot involving the calcaneus, talus, cuboid, cuneiforms and navicular which is probably reactive. Possible nondisplaced fracture line seen in the calcaneus image 24 series 10, image 14 series 5 although this is technically indeterminate. Elsewhere, no displaced or definite fracture line is seen. No hindfoot coalitions. No osteochondral injuries of the talar dome. Small tibiotalar joint effusion. There is diffuse hindfoot and midfoot joint degeneration There is extensive hindfoot and midfoot circumferential cellulitis, with superficial fascial fluid and diffuse subcutaneous edema. Medial structures: The posterior tibialis, flexor digitorum longus, and flexor hallucis longus tendons are intact. There is also fluid surrounding the posterior tibialis tendon in keeping with tenosynovitis. The posterior tibial neurovascular bundle appears normal within the tarsal tunnel, without extrinsic mass effect. The deep layer (anterior and posterior tibiotalar ligaments) and superficial layer (tibionavicular, tibiospring, and tibiocalcaneal ligaments) of the deltoid ligament appear normal. The spring ligament is not well seen distally and may be ruptured/acute sprain. Lateral structures: The anterior talofibular ligament is not well-visualized in keeping with rupture. The calcaneofibular and posterior talofibular ligaments appear intact. More superiorly, the anterior and posterior tibiofibular ligaments appear intact, as is the intermalleolar ligament. The tibiofibular syndesmosis is normal in width at 2 mm or less. The peroneus longus and brevis tendons appear intact. However, there is prominent fluid surrounding the peroneus longus and brevis tendons for example image 28 series 8. Adjacent bony peroneal tubercle and retrotrochlear prominence are normal in size. The sinus tarsi demonstrates normal fatty signal, without edema, fibrosis, or cyst formation. Visualized sinus tarsi components (cervical ligament, interosseous talocalcaneal ligament, roots of the inferior extensor retinaculum) appear normal. The calcaneonavicular and calcaneocuboid components of the bifurcate ligament appear intact. The dorsal calcaneocuboid ligament appears intact. Anterior structures: The tibialis anterior, extensor hallucis longus, and extensor digitorum longus tendons appear intact. The dorsal talonavicular ligament appears intact. Posterior and plantar structures: Achilles tendon is intact. Marked thickening and intrasubstance signal change of the medial band of the plantar fascia, image 13 series 6 and image 22 series 9. IMPRESSION: Diffuse marrow edema throughout the hindfoot and midfoot as detailed above, probably related to dislocation of the talonavicular joint, new since 01/09/18 Possible incomplete nondisplaced fracture line seen in the calcaneus although this is technically indeterminate. Also, the marrow edema pattern seems atypical for fracture although please correlate clinically for point tenderness. If there is persistent clinical suspicion for occult fracture, further evaluation with dedicated CT ankle could be performed. Severe diffuse circumferential subcutaneous edema. Medial band plantar fasciitis. Rupture of the anterior talofibular ligament. Posterior tibialis, peroneus longus and brevis tenosynovitis. Findings were personally telephoned and discussed with Dr. Pearl on 01/26/18. Dictated by: Kieran Shields M.D. on 01/26/2018 at 9:23 Approved by: Kieran Shields M.D. on 01/26/2018 at 10:30
== END ==
PROVIDERS: Family Provider Family Medicine; PCP Family Medicine; Visit Provider Podiatrist
DX: S93.05XA Dislocation of left ankle joint, initial encounter (principal); S93.492A Sprain of other ligament of left ankle, initial encounter; M72.2 Plantar fascial fibromatosis; R60.0 Localized edema
CPT/HCPCS: 73721

== ENCOUNTER → 2018-02-27 10:51 | Outpatient (CLI) | payer MEDICARE, MEDICAID, SELFPAY ==
[2018-02-27 11:37] LABS: Hematocrit 38.6 % (36-46); Mean Corpuscular HGB Conc 33.8 % (30-36); Mean Corpuscular Hemoglobin 32.4 PG (26-34); Mean Corpuscular Volume 95.8 fL (80-100); Platelet Count 203 X10^3/uL (150-400); Red Blood Cell Count 4.03 X10^6/uL (4.0-5.2); White Blood Cell Count 9.1 X10^3/uL (4.5-11.0)
[2018-02-27 11:53] LABS: BUN Creatinine Ratio 18.3 (6-22); Blood Urea Nitrogen 11 mg/dL (7-17); Calcium 10.5 mg/dL (8.4-10.2); Carbon Dioxide 32 mmol/L (22-32); Chloride 100 mmol/L (98-107); Cholesterol 209 mg/dL (140-199); Estimated Glomerular Filt Rate > 60.0 mL/min (>60); Glucose 101 mg/dL (80-110); HDL Cholesterol 41 mg/dL (40-60); HEMOLYSIS < 15 (0-50); LDL Cholesterol Calculated 139 mg/dL (<100); Potassium 4.3 mmol/L (3.4-5.1); Sodium 140 mmol/L (137-145); Triglycerides 146 mg/dL (35-150)
[2018-02-27 11:57] LABS: Hemoglobin A1C% w Est Avg Glu 5.4 % (4.0-6.0)
[2018-02-27 12:22] LABS: Thyroid Stimulating Hormone 2.01 uIU/mL (0.47-4.68)
[2018-02-27 13:04] LABS: RBC Morphology Normal Morphology
== END ==
PROVIDERS: Family Provider Family Medicine; PCP Family Medicine; Visit Provider Family Medicine
DX: I10 Essential (primary) hypertension (principal); E78.5 Hyperlipidemia, unspecified; R73.9 Hyperglycemia, unspecified
CPT/HCPCS: 36415; 80048; 80061; 83036; 84443; 85025

== ENCOUNTER 2018-04-14 17:28 | Emergency (ER) | payer MEDICARE, MEDICAID, SELFPAY ==
[2018-04-14 17:29] VITALS: BP 104/65; PULSE 61; RESP 20; TEMP 36.7; O2SAT 94; BMI 39.8
--- NOTE | 2018-04-14 18:52 | DI.RAD.S_ITS ---
PROCEDURE: XR TOE RT MIN 2V INDICATIONS: Red swollen 5th toe, with history of infection TECHNIQUE: 3 views of the right fifth toe(s) acquired. COMPARISON: [facility], , XR FOOT RT MIN 3V, 11/29/2017, 19:47. FINDINGS: Bones: No fractures or dislocations. No suspicious bony lesions. Metatarsus primus varus is present. Soft tissues: No suspicious soft tissue densities. IMPRESSION: No acute fracture. No osseous lesion. If clinical suspicion and/or symptoms persist, further assessment with repeat plainfilms, or advanced imaging (e.g., CT, MRI, or bone scan) may be helpful for further assessment. Dictated by: Iwona Hairston M.D. on 04/14/2018 at 19:33 Approved by: Iwona Hairston M.D. on 04/14/2018 at 19:34
[2018-04-14 19:17] LABS: Add Manual Diff / Slide Review NO; Basophils Percent Auto 0.2 % (0-2); Eosinophils Percent Auto 4.1 % (2-4); Hematocrit 39.8 % (36-46); Hemoglobin 13.3 g/dL (12.0-16.0); Lymphocytes Percent Auto 42.3 % (25-40); Mean Corpuscular HGB Conc 33.5 % (30-36); Mean Corpuscular Volume 95.5 fL (80-100); Monocytes Percent Auto 6.3 % (3-14); Neutrophils Absolute Auto 4600 /uL (3000-5900); Neutrophils Percent Auto 47.1 % (50-75); Platelet Count 189 X10^3/uL (150-400); Red Blood Cell Count 4.17 X10^6/uL (4.0-5.2); Red Cell Distribution Width 14.4 % (11.6-14.8); White Blood Cell Count 9.8 X10^3/uL (4.5-11.0)
[2018-04-14 19:28] LABS: Lactate (Lactic Acid) 2.8 mmol/L (0.7-2.1)
--- NOTE | 2018-04-14 19:51 | ED_ITS ---
HPI - Skin/Abscess/Foreign Bdy <Amalia Glovermer, GRINDER SET UP OPERATOR GEAR TOOL-BC - Last Filed: 04/14/18 23:01> General Chief complaint: Skin/Abscess/Foreign Body Stated complaint: SENT BY WOUND CARE FOR TOE Time Seen by Provider: 04/14/18 19:35 Source: patient Mode of arrival: ambulatory Limitations: no limitations History of Present Illness HPI narrative: patient presents from for concern of possible necrotic toe. She has a history of multiple wound infections. She denies any overt fevers, but complains of general malaise. She denies any nausea vomiting or diarrhea. She states she is concerned about infection in the bone of her toe. She has not seen wound care and a while and would like referral to wound care. Related Data Home Medications Medication Instructions Recorded Confirmed baclofen 1 tab PO HSP PRN #0 09/23/16 03/03/18 multivitamin [Multiple Vitamins] #0 09/23/16 03/03/18 oxybutynin chloride [Ditropan XL] 15 mg PO QDAY #30 tab 09/23/16 03/03/18 amitriptyline 10 mg PO HS #0 09/21/17 03/03/18 clopidogrel 75 mg PO QDAY #0 09/21/17 03/03/18 venlafaxine ER 75 mg 75 mg PO QID cap 01/19/18 03/03/18 capsule,extended release 24 hr famotidine 40 mg tablet 40 mg PO DAILY 03/03/18 03/03/18 gabapentin 300 mg capsule 600 mg PO QID #0 cap 03/03/18 03/03/18 Previous Rx's Medication Instructions Recorded tramadol 50 - 100 mg PO Q12HP #120 10/07/12 oxycodone 0 mg PO Q4HP PRN #180 tab 04/14/16 polyethylene glycol 3350 [Miralax] 17 gm PO QDAY PRN #90 gm 05/27/16 albuterol sulfate [Ventolin HFA] 1 - 2 puff INH Q4H #1 inh 02/27/17 cholecalciferol (vitamin D3) 2,000 unit PO QDAY #90 cap 04/27/17 [Vitamin D3] atenolol 25 mg PO QDAY #30 tab 02/16/18 furosemide [Lasix] 20 mg PO BID #60 tab 09/17/18 doxycycline hyclate 100 mg PO BID #20 tab 04/14/18 Allergies Allergy/AdvReac Type Severity Reaction Status Date / Time Aminoglycosides Allergy Mild ? Verified 03/03/18 14:07 [AMINOGLYCOSIDES] ibuprofen [IBUPROFEN] Allergy Mild ? TOXIC Verified 03/03/18 14:07 lamotrigine [LAMOTRIGINE] Allergy Mild ? Verified 03/03/18 14:07 Penicillins [PENICILLINS] Allergy Mild A BABY? Verified 03/03/18 14:07 quetiapine [QUETIAPINE] Allergy Mild ? Verified 03/03/18 14:07 Sulfa (Sulfonamide Allergy Mild rash Verified 03/03/18 14:07 Antibiotics) sulfamethoxazole Allergy Unknown Verified 03/03/18 14:07 [From BACTRIM] trimethoprim [From BACTRIM] Allergy Unknown Verified 03/03/18 14:07 acetaminophen [ACETAMINOPHEN] AdvReac Mild ? Verified 03/03/18 14:07 gentamicin [GENTAMICIN] AdvReac Mild EYE Verified 03/03/18 14:07 DROPS-MAKE EYE INFX WORSE lisinopril [LISINOPRIL] AdvReac Mild CAUSES Verified 03/03/18 14:07 PAIN MUSCLE Review of Systems <ASHWIN Goetz - Last Filed: 04/14/18 23:01> Review of Systems GENERAL: Denies chills, fatigue, malaise, fever, sweats. HEENT: Denies sinus pain, ear pain, sore throat, difficulty swallowing, dizziness. RESPIRATORY: Denies dyspnea, cough, wheezing, hemoptysis, sputum. CARDIOVASCULAR: Denies chest pain, palpitations, orthopnea, edema, GASTROINTESTINAL: Denies nausea, vomiting, abdominal pain, diarrhea, constipation, melena. : Denies dysuria, frequency, incontinence, hematuria, urinary retention. MUSCULOSKELETAL: see HPI SKIN: See HPI NEUROLOGIC: Denies weakness, headache, numbness, change in speech, confusion, seizures, incoordination. PSYCHIATRIC: No concerning psychosocial issues. 12 point review of systems is negative except for those stated above Exam <ASHWIN Goetz - Last Filed: 04/14/18 23:01> Narrative Exam Narrative: GENERAL: obese chronically ill-appearing female lying on stretcher HEAD: Atraumatic. Normocephalic. No temporal or scalp tenderness. EYES: Pupils equal round and reactive. Extraocular motions intact. No scleral icterus. No injection or drainage. ENT: Nose without bleeding, purulent drainage or septal hematoma. Throat without erythema, tonsillar hypertrophy or exudate. Uvula midline. Airway patent. NECK: Trachea midline. No JVD or lymphadenopathy. Supple, nontender, no meningeal signs. CARDIOVASCULAR: Regular rate and rhythm without murmurs, gallops, or rubs. RESPIRATORY: Clear to auscultation. Breath sounds equal bilaterally. No wheezes , rales, or rhonchi. GASTROINTESTINAL: Abdomen soft, Obese, non-tender, nondistended. No hepato- splenomegaly, or palpable masses. No guarding. EXTREMITIES: positive peripheral pulses right foot. Patient has good movement right toes. BACK: Nontender without deformity or crepitance. No flank tenderness. NEURO: AOx3. SKIN: 1 cm area of erythema with scant drainage noted lateral aspect of right 5th toe. No undermining noted. No open skin noted. Area is erythematous, but does not extend beyond toe. Initial Vital Signs Initial Vital Signs: Vital Signs Temperature 98.0 F 04/14/18 17:29 Pulse Rate 61 04/14/18 17:29 Respiratory Rate 20 04/14/18 17:29 Blood Pressure 104/65 04/14/18 17:29 Pulse Oximetry 94 04/14/18 17:29 <Juan Rios DO - Last Filed: 04/15/18 06:24> Initial Vital Signs Initial Vital Signs: Vital Signs Temperature 98.0 F 04/14/18 17:29 Pulse Rate 61 04/14/18 17:29 Respiratory Rate 20 04/14/18 17:29 Blood Pressure 104/65 04/14/18 17:29 Pulse Oximetry 94 04/14/18 17:29 Course <RAMIREZ Goetz-BC - Last Filed: 04/14/18 23:01> Orders Ordered: ED Orders 04/14/18 21:25 Wound Culture and Gram Stain Stat Discontinued Medications Sodium Chloride (Normal Saline 0.9%) 1,000 mls @ 1,000 mls/hr IV BOLUS ONE Stop: 04/14/18 21:01 Last Infusion: 04/14/18 21:09 Dose: 0 mls/hr Admin: 04/14/18 20:05 Dose: 1,000 mls/hr Vital Signs - 8 hr 04/14/18 17:29 04/14/18 20:09 04/14/18 21:03 Temperature 98.0 F Pulse Rate 61 64 60 Respiratory Rate 20 14 Blood Pressure 104/65 Blood Pressure [Left Arm] 95/57 L 98/51 L Pulse Oximetry 94 94 100 04/14/18 21:59 Temperature Pulse Rate 78 Respiratory Rate 18 Blood Pressure 103/65 Blood Pressure [Left Arm] Pulse Oximetry 98 <Juan Rios DO - Last Filed: 04/15/18 06:24> Orders Ordered: ED Orders 04/14/18 21:25 Wound Culture and Gram Stain Stat Discontinued Medications Sodium Chloride (Normal Saline 0.9%) 1,000 mls @ 1,000 mls/hr IV BOLUS ONE Stop: 04/14/18 21:01 Last Infusion: 04/14/18 21:09 Dose: 0 mls/hr Admin: 04/14/18 20:05 Dose: 1,000 mls/hr Vital Signs - 8 hr 04/14/18 17:29 04/14/18 20:09 04/14/18 21:03 Temperature 98.0 F Pulse Rate 61 64 60 Respiratory Rate 20 14 Blood Pressure 104/65 Blood Pressure [Left Arm] 95/57 L 98/51 L Pulse Oximetry 94 94 100 04/14/18 21:59 Temperature Pulse Rate 78 Respiratory Rate 18 Blood Pressure 103/65 Blood Pressure [Left Arm] Pulse Oximetry 98 MDM - Skin/Abscess/Foreign Bdy <RAMIREZ Goetz-BC - Last Filed: 04/14/18 23:01> Lab Data Result diagrams: 04/14/18 19:00 04/14/18 19:42 Lab Results 04/14/18 04/14/18 04/14/18 Range/Units 19:00 19:00 19:00 WBC 9.8 (4.5-11.0) X10^3/uL RBC 4.17 (4.0-5.2) X10^6/uL Hgb 13.3 (12.0-16.0) g/dL Hct 39.8 (36-46) % MCV 95.5 (80-100) fL MCH 32.0 (26-34) PG MCHC 33.5 (30-36) % RDW 14.4 (11.6-14.8) % Plt Count 189 (150-400) X10^3/uL Neut % (Auto) 47.1 L (50-75) % Lymph % (Auto) 42.3 H (25-40) % [place] % (Auto) 6.3 (3-14) % Eos % (Auto) 4.1 H (2-4) % Baso % (Auto) 0.2 (0-2) % Neut # (Auto) 4600 (1571-6615) /uL PT (10.1-12.7) SECONDS INR (0.9-1.3) APTT (26.4-36.2) SECONDS Sodium (137-145) mmol/L Potassium (3.4-5.1) mmol/L Chloride (98-107) mmol/L Carbon Dioxide (22-32) mmol/L BUN (7-17) mg/dL Creatinine (0.52-1.04) mg/dL Estimated GFR (>60) mL/min BUN/Creatinine Ratio (6-22) Glucose (80-110) mg/dL Lactate 2.8 H (0.7-2.1) mmol/L Calcium (8.4-10.2) mg/dL Total Bilirubin (0.2-1.3) mg/dL AST (14-36) IU/L ALT (9-52) IU/L Alkaline Phosphatase (38-126) U/L Total Protein (6.3-8.2) g/dL Albumin (3.5-5.0) g/dL Globulin (1.7-4.1) g/dL Albumin/Globulin Ratio (1.0-2.8) Lipase (23-300) U/L Procalcitonin < 0.05 (<0.5) ng/mL Urine Color Urine Appearance Urine pH (4.5-8.0) Ur Specific [place] (1.000-1.035) Urine Protein (Negative) Urine Glucose (UA) (Normal) g/dL Urine Ketones (NEGATIVE) Urine Occult Blood (Negative) Urine Nitrate (Negative) Urine Bilirubin (NEGATIVE) Urine Urobilinogen (0.2) E.U./dL Ur Leukocyte Esterase (NEGATIVE) Urine RBC (0-5/HPF) Urine WBC (0-5/HPF) Ur Squamous Epith Cells Urine Bacteria (None) Ur Culture Indicated? Micro UA Comment 04/14/18 04/14/18 04/14/18 Range/Units 19:42 19:42 20:05 WBC (4.5-11.0) X10^3/uL RBC (4.0-5.2) X10^6/uL Hgb (12.0-16.0) g/dL Hct (36-46) % MCV (80-100) fL MCH (26-34) PG MCHC (30-36) % RDW (11.6-14.8) % Plt Count (150-400) X10^3/uL Neut % (Auto) (50-75) % Lymph % (Auto) (25-40) % [place] % (Auto) (3-14) % Eos % (Auto) (2-4) % Baso % (Auto) (0-2) % Neut # (Auto) (9963-1132) /uL PT 9.6 L (10.1-12.7) SECONDS INR 0.9 (0.9-1.3) APTT 36 (26.4-36.2) SECONDS Sodium 140 (137-145) mmol/L Potassium 4.1 (3.4-5.1) mmol/L Chloride 102 (98-107) mmol/L Carbon Dioxide 29 (22-32) mmol/L BUN 18 H (7-17) mg/dL Creatinine 0.50 L (0.52-1.04) mg/dL Estimated GFR > 60.0 (>60) mL/min BUN/Creatinine Ratio 36.0 H (6-22) Glucose 128 H (80-110) mg/dL Lactate (0.7-2.1) mmol/L Calcium 9.9 (8.4-10.2) mg/dL Total Bilirubin 0.3 (0.2-1.3) mg/dL AST 24 (14-36) IU/L ALT 20 (9-52) IU/L Alkaline Phosphatase 107 (38-126) U/L Total Protein 7.6 (6.3-8.2) g/dL Albumin 4.3 (3.5-5.0) g/dL Globulin 3.3 (1.7-4.1) g/dL Albumin/Globulin Ratio 1.3 (1.0-2.8) Lipase < 10 L (23-300) U/L Procalcitonin (<0.5) ng/mL Urine Color Yellow Urine Appearance Clear Urine pH 5.5 (4.5-8.0) Ur Specific [place] 1.010 (1.000-1.035) Urine Protein Negative (Negative) Urine Glucose (UA) Negative (Normal) g/dL Urine Ketones Negative (NEGATIVE) Urine Occult Blood Negative (Negative) Urine Nitrate Negative (Negative) Urine Bilirubin Negative (NEGATIVE) Urine Urobilinogen 0.2 (0.2) E.U./dL Ur Leukocyte Esterase Trace H (NEGATIVE) Urine RBC 0-1/hpf (0-5/HPF) Urine WBC 0-1/hpf (0-5/HPF) Ur Squamous Epith Cells 0-1 /hpf Urine Bacteria Few (2-10) H (None) Ur Culture Indicated? Specimen cultured Micro UA Comment Not Reportable 04/14/18 Range/Units 21:17 WBC (4.5-11.0) X10^3/uL RBC (4.0-5.2) X10^6/uL Hgb (12.0-16.0) g/dL Hct (36-46) % MCV (80-100) fL MCH (26-34) PG MCHC (30-36) % RDW (11.6-14.8) % Plt Count (150-400) X10^3/uL Neut % (Auto) (50-75) % Lymph % (Auto) (25-40) % [place] % (Auto) (3-14) % Eos % (Auto) (2-4) % Baso % (Auto) (0-2) % Neut # (Auto) (8243-0175) /uL PT (10.1-12.7) SECONDS INR (0.9-1.3) APTT (26.4-36.2) SECONDS Sodium (137-145) mmol/L Potassium (3.4-5.1) mmol/L Chloride (98-107) mmol/L Carbon Dioxide (22-32) mmol/L BUN (7-17) mg/dL Creatinine (0.52-1.04) mg/dL Estimated GFR (>60) mL/min BUN/Creatinine Ratio (6-22) Glucose (80-110) mg/dL Lactate 1.0 (0.7-2.1) mmol/L Calcium (8.4-10.2) mg/dL Total Bilirubin (0.2-1.3) mg/dL AST (14-36) IU/L ALT (9-52) IU/L Alkaline Phosphatase (38-126) U/L Total Protein (6.3-8.2) g/dL Albumin (3.5-5.0) g/dL Globulin (1.7-4.1) g/dL Albumin/Globulin Ratio (1.0-2.8) Lipase (23-300) U/L Procalcitonin (<0.5) ng/mL Urine Color Urine Appearance Urine pH (4.5-8.0) Ur Specific [place] (1.000-1.035) Urine Protein (Negative) Urine Glucose (UA) (Normal) g/dL Urine Ketones (NEGATIVE) Urine Occult Blood (Negative) Urine Nitrate (Negative) Urine Bilirubin (NEGATIVE) Urine Urobilinogen (0.2) E.U./dL Ur Leukocyte Esterase (NEGATIVE) Urine RBC (0-5/HPF) Urine WBC (0-5/HPF) Ur Squamous Epith Cells Urine Bacteria (None) Ur Culture Indicated? Micro UA Comment MDM Narrative Medical decision making narrative: Patient presents with chief complaint of wound on lateral aspect of right 5th toe. She has no signs of systemic infection. She is afebrile, hemodynamically stable nontoxic appearing. She does not have an elevated procalcitonin. Her repeat lactate was within normal limits. The so placed her on doxycycline given her allergies to multiple medications. Doxycycline will provide MRSA coverage given her history. I discussed at length follow up with wound care as well as following up for any signs of systemic illness. She had no questions or concerns upon discharge. Wound culture was taken and sent. <Juan Rios, DO - Last Filed: 04/15/18 06:24> Lab Data Lab Results 04/14/18 04/14/18 04/14/18 Range/Units 19:00 19:00 19:00 WBC 9.8 (4.5-11.0) X10^3/uL RBC 4.17 (4.0-5.2) X10^6/uL Hgb 13.3 (12.0-16.0) g/dL Hct 39.8 (36-46) % MCV 95.5 (80-100) fL MCH 32.0 (26-34) PG MCHC 33.5 (30-36) % RDW 14.4 (11.6-14.8) % Plt Count 189 (150-400) X10^3/uL Neut % (Auto) 47.1 L (50-75) % Lymph % (Auto) 42.3 H (25-40) % [place] % (Auto) 6.3 (3-14) % Eos % (Auto) 4.1 H (2-4) % Baso % (Auto) 0.2 (0-2) % Neut # (Auto) 4600 (7959-0502) /uL PT (10.1-12.7) SECONDS INR (0.9-1.3) APTT (26.4-36.2) SECONDS Sodium (137-145) mmol/L Potassium (3.4-5.1) mmol/L Chloride (98-107) mmol/L Carbon Dioxide (22-32) mmol/L BUN (7-17) mg/dL Creatinine (0.52-1.04) mg/dL Estimated GFR (>60) mL/min BUN/Creatinine Ratio (6-22) Glucose (80-110) mg/dL Lactate 2.8 H (0.7-2.1) mmol/L Calcium (8.4-10.2) mg/dL Total Bilirubin (0.2-1.3) mg/dL AST (14-36) IU/L ALT (9-52) IU/L Alkaline Phosphatase (38-126) U/L Total Protein (6.3-8.2) g/dL Albumin (3.5-5.0) g/dL Globulin (1.7-4.1) g/dL Albumin/Globulin Ratio (1.0-2.8) Lipase (23-300) U/L Procalcitonin < 0.05 (<0.5) ng/mL Urine Color Urine Appearance Urine pH (4.5-8.0) Ur Specific [place] (1.000-1.035) Urine Protein (Negative) Urine Glucose (UA) (Normal) g/dL Urine Ketones (NEGATIVE) Urine Occult Blood (Negative) Urine Nitrate (Negative) Urine Bilirubin (NEGATIVE) Urine Urobilinogen (0.2) E.U./dL Ur Leukocyte Esterase (NEGATIVE) Urine RBC (0-5/HPF) Urine WBC (0-5/HPF) Ur Squamous Epith Cells Urine Bacteria (None) Ur Culture Indicated? Micro UA Comment 04/14/18 04/14/18 04/14/18 Range/Units 19:42 19:42 20:05 WBC (4.5-11.0) X10^3/uL RBC (4.0-5.2) X10^6/uL Hgb (12.0-16.0) g/dL Hct (36-46) % MCV (80-100) fL MCH (26-34) PG MCHC (30-36) % RDW (11.6-14.8) % Plt Count (150-400) X10^3/uL Neut % (Auto) (50-75) % Lymph % (Auto) (25-40) % [place] % (Auto) (3-14) % Eos % (Auto) (2-4) % Baso % (Auto) (0-2) % Neut # (Auto) (6747-3688) /uL PT 9.6 L (10.1-12.7) SECONDS INR 0.9 (0.9-1.3) APTT 36 (26.4-36.2) SECONDS Sodium 140 (137-145) mmol/L Potassium 4.1 (3.4-5.1) mmol/L Chloride 102 (98-107) mmol/L Carbon Dioxide 29 (22-32) mmol/L BUN 18 H (7-17) mg/dL Creatinine 0.50 L (0.52-1.04) mg/dL Estimated GFR > 60.0 (>60) mL/min BUN/Creatinine Ratio 36.0 H (6-22) Glucose 128 H (80-110) mg/dL Lactate (0.7-2.1) mmol/L Calcium 9.9 (8.4-10.2) mg/dL Total Bilirubin 0.3 (0.2-1.3) mg/dL AST 24 (14-36) IU/L ALT 20 (9-52) IU/L Alkaline Phosphatase 107 (38-126) U/L Total Protein 7.6 (6.3-8.2) g/dL Albumin 4.3 (3.5-5.0) g/dL Globulin 3.3 (1.7-4.1) g/dL Albumin/Globulin Ratio 1.3 (1.0-2.8) Lipase < 10 L (23-300) U/L Procalcitonin (<0.5) ng/mL Urine Color Yellow Urine Appearance Clear Urine pH 5.5 (4.5-8.0) Ur Specific [place] 1.010 (1.000-1.035) Urine Protein Negative (Negative) Urine Glucose (UA) Negative (Normal) g/dL Urine Ketones Negative (NEGATIVE) Urine Occult Blood Negative (Negative) Urine Nitrate Negative (Negative) Urine Bilirubin Negative (NEGATIVE) Urine Urobilinogen 0.2 (0.2) E.U./dL Ur Leukocyte Esterase Trace H (NEGATIVE) Urine RBC 0-1/hpf (0-5/HPF) Urine WBC 0-1/hpf (0-5/HPF) Ur Squamous Epith Cells 0-1 /hpf Urine Bacteria Few (2-10) H (None) Ur Culture Indicated? Specimen cultured Micro UA Comment Not Reportable 04/14/18 Range/Units 21:17 WBC (4.5-11.0) X10^3/uL RBC (4.0-5.2) X10^6/uL Hgb (12.0-16.0) g/dL Hct (36-46) % MCV (80-100) fL MCH (26-34) PG MCHC (30-36) % RDW (11.6-14.8) % Plt Count (150-400) X10^3/uL Neut % (Auto) (50-75) % Lymph % (Auto) (25-40) % [place] % (Auto) (3-14) % Eos % (Auto) (2-4) % Baso % (Auto) (0-2) % Neut # (Auto) (4041-4539) /uL PT (10.1-12.7) SECONDS INR (0.9-1.3) APTT (26.4-36.2) SECONDS Sodium (137-145) mmol/L Potassium (3.4-5.1) mmol/L Chloride (98-107) mmol/L Carbon Dioxide (22-32) mmol/L BUN (7-17) mg/dL Creatinine (0.52-1.04) mg/dL Estimated GFR (>60) mL/min BUN/Creatinine Ratio (6-22) Glucose (80-110) mg/dL Lactate 1.0 (0.7-2.1) mmol/L Calcium (8.4-10.2) mg/dL Total Bilirubin (0.2-1.3) mg/dL AST (14-36) IU/L ALT (9-52) IU/L Alkaline Phosphatase (38-126) U/L Total Protein (6.3-8.2) g/dL Albumin (3.5-5.0) g/dL Globulin (1.7-4.1) g/dL Albumin/Globulin Ratio (1.0-2.8) Lipase (23-300) U/L Procalcitonin (<0.5) ng/mL Urine Color Urine Appearance Urine pH (4.5-8.0) Ur Specific [place] (1.000-1.035) Urine Protein (Negative) Urine Glucose (UA) (Normal) g/dL Urine Ketones (NEGATIVE) Urine Occult Blood (Negative) Urine Nitrate (Negative) Urine Bilirubin (NEGATIVE) Urine Urobilinogen (0.2) E.U./dL Ur Leukocyte Esterase (NEGATIVE) Urine RBC (0-5/HPF) Urine WBC (0-5/HPF) Ur Squamous Epith Cells Urine Bacteria (None) Ur Culture Indicated? Micro UA Comment Discharge Plan Departure Patient Disposition: Home Clinical Impression: Wound, open, toe Discharge Date/Time: 04/14/18 21:59 Interventions: ED Discharge Assessment Last Done: 04/14/18 21:59 Instructions: DI for Wound Infection Activity Restrictions/Additional Instructions: I am starting you on an antibiotic for your wound. Please follow-up with wound care. We are also sending out a wound culture to make sure that the infection will be treated by the antibiotic. Please monitor for spreading of redness, fever and worsening. Prescriptions: New doxycycline hyclate 100 mg tablet 100 mg PO BID Qty: 20 RF: 0 No Action tramadol 50 MG tablet 50 - 100 mg PO Q12HP Qty: 120 RF: 0 oxycodone 5 MG tablet PO Q4HP PRNQty: 180 RF: 0 polyethylene glycol 3350 [Miralax] 17 GM powder in packet 17 gm PO QDAY PRNQty: 90 RF: 3 oxybutynin chloride [Ditropan XL] 15 MG tablet extended release 24hr 15 mg PO QDAY Qty: 30 RF: 3 baclofen 10 MG tablet 1 tab PO HSP PRNQty: 0 RF: 0 multivitamin [Multiple Vitamins] 1 EACH tablet Qty: 0 RF: 0 albuterol sulfate [Ventolin HFA] 90 MCG/PUFF HFA aerosol inhaler 1 - 2 puff INH Q4H Qty: 1 RF: 2 cholecalciferol (vitamin D3) [Vitamin D3] 2,000 UNIT capsule 2,000 unit PO QDAY Qty: 90 RF: 3 clopidogrel 75 MG tablet 75 mg PO QDAY Qty: 0 RF: 0 amitriptyline 10 MG tablet 10 mg PO HS Qty: 0 RF: 0 atenolol 25 mg tablet 25 mg PO QDAY Qty: 30 RF: 12 gabapentin [Neurontin] 300 mg capsule 600 mg PO QID Qty: 0 RF: 0 furosemide [Lasix] 20 mg tablet 20 mg PO BID Qty: 60 RF: 5 venlafaxine [Effexor XR] 75 mg capsule,extended release 24hr 75 mg PO QID RF: 0 famotidine 40 mg tablet 40 mg PO DAILY RF: 0 Referrals: [facility] [Outside] [facility] [Outside] Geovanna Lewis MD [Primary Care Provider] - <Juan Rios DO - Last Filed: 04/15/18 06:24> Cosign ED Attending Bam Attestation: I was immediately available in the department for consultation. Documentation has been reviewed. I agree with assessment and plan.
[2018-04-14 20:03] LABS: INR 0.9 (0.9-1.3); Prothrombin Time 9.6 SECONDS (10.1-12.7)
[2018-04-14] MEDS: SODIUM CHLORIDE 0.9% 1,000 ML 1000 ML IV (20:05)
[2018-04-14 20:06] LABS: PTT Partial Thromboplastin Tim 36 SECONDS (26.4-36.2)
[2018-04-14 20:07] LABS: Alanine Aminotransferase 20 IU/L (9-52); Albumin 4.3 g/dL (3.5-5.0); Albumin Globulin Ratio 1.3 (1.0-2.8); Alkaline Phosphatase 107 U/L (38-126); Aspartate Aminotransferase 24 IU/L (14-36); Bilirubin Total 0.3 mg/dL (0.2-1.3); Blood Urea Nitrogen 18 mg/dL (7-17); Calcium 9.9 mg/dL (8.4-10.2); Carbon Dioxide 29 mmol/L (22-32); Chloride 102 mmol/L (98-107); Estimated Glomerular Filt Rate > 60.0 mL/min (>60); Globulin 3.3 g/dL (1.7-4.1); Glucose 128 mg/dL (80-110); HEMOLYSIS 21 (0-50); Lipase < 10 U/L (23-300); Potassium 4.1 mmol/L (3.4-5.1); Sodium 140 mmol/L (137-145); Total Protein 7.6 g/dL (6.3-8.2)
[2018-04-14 20:09] VITALS: BP 95/57; PULSE 64; RESP 14; O2SAT 94
[2018-04-14 20:19] LABS: Appearance Urine UA CLEAR; Bilirubin Urine UA NEGATIVE (NEGATIVE); Color Urine UA YELLOW; Glucose Urine UA NEGATIVE (Normal); Ketones Urine UA NEGATIVE (NEGATIVE); Leukocyte Esterase Urine UA TRACE (NEGATIVE); Nitrite Urine UA NEGATIVE (Negative); Occult Blood Urine UA NEGATIVE (Negative); Protein Urine UA NEGATIVE (Negative); Urobilinogen Urine UA 0.2 E.U./dL (0.2); pH Urine UA 5.5 (4.5-8.0)
[2018-04-14 20:28] LABS: Procalcitonin < 0.05 ng/mL (<0.5)
[2018-04-14 20:29] LABS: Bacteria Urine Few (2-10); Culture Indicated Urine Specimen Cultured; RBC Urine 0-1/HPF (0-5/HPF); Squamous Epithelial Cell Urine 0-1 /HPF; WBC Urine 0-1/HPF (0-5/HPF)
[2018-04-14 21:03] VITALS: BP 98/51; PULSE 60; O2SAT 100
[2018-04-14 21:59] VITALS: BP 103/65; PULSE 78; RESP 18; O2SAT 98
[2018-04-14 23:13] LABS: Reflexed Lactate in 2 Hours Y
[2018-04-15 16:08] LABS: Enterococcus species Not Detected (Not Detect); Listeria monocytogenes Not Detected (Not Detect); Methicillin-resistant gene Detected (Not Detect)
[2018-04-15 16:09] LABS: Acinetobacter baumannii Not Detected (Not Detect); E. coli Not Detected (Not Detect); Enterobacter cloacae complex Not Detected (Not Detect); Enterobacteriaceae species Not Detected (Not Detect); Haemophilus influenzae Not Detected (Not Detect); Proteus species Not Detected (Not Detect); Serratia marcescens Not Detected (Not Detect); Streptococcus agalactiae (Gr B Not Detected (Not Detect); Streptococcus pneumonia Not Detected (Not Detect); Streptococcus pyogenes (Gr A) Not Detected (Not Detect); Streptococcus species Not Detected (Not Detect)
[2018-04-15 16:10] LABS: Candida albicans Not Detected (Not Detect); Candida glabrata Not Detected (Not Detect); Candida krusei Not Detected (Not Detect); Candida parapsilosis Not Detected (Not Detect); Candida tropicalis Not Detected (Not Detect); Neisseria meningitidis Not Detected (Not Detect); Pseudomonas aeruginosa Not Detected (Not Detect)
[2018-04-15 16:13] LABS: Staphylococcus species Detected (Not Detect)
== END 2018-04-14 21:59 | disposition home or self-care (01) ==
PROVIDERS: Emergency Medicine; Emergency Provider Nurse Practitioner Family; Family Provider Family Medicine; PCP Family Medicine
DX: S91.104A Unspecified open wound of right lesser toe(s) without damage to nail, initial encounter (principal)
CPT/HCPCS: 36415; 36591; 73660; 80053; 81001; 83605; 83690; 84145; 85025; 85610; 85730; 87040; 87070; 87075; 87077; 87086; 87147; 87150; 87186; 87205; 96360; 99283; 99284

== ENCOUNTER 2018-11-15 17:58 | Emergency (ER) | payer MEDICARE, MEDICAID, SELFPAY ==
[2018-11-15 18:13] VITALS: BP 166/81; PULSE 73; RESP 16; TEMP 36.7; O2SAT 96; BMI 42.5
--- NOTE | 2018-11-15 18:27 | DI.RAD.S_ITS ---
PROCEDURE: XR FINGER LT MIN 2V INDICATIONS: fall, on plavix TECHNIQUE: AP hand, 2 views of the left first finger(s) acquired. COMPARISON: None. FINDINGS: Bones: Moderately displaced comminuted fracture of the proximal aspect of the distal phalanx of the first digit. There are a few small bony fragments adjacent to the distal aspect of the proximal phalanx which may represent proximal phalangeal fractures. There is articular surface extension to the interphalangeal joint. Soft tissues: No suspicious soft tissue calcifications. IMPRESSION: First digit fracture. Dictated by: Iwona Hairston M.D. on 11/15/2018 at 19:22 Approved by: Iwona Hairston M.D. on 11/15/2018 at 19:23
--- NOTE | 2018-11-15 18:27 | DI.CT.S_ITS ---
PROCEDURE: CT HEAD/BRAIN WO CON INDICATIONS: fall, on plavix TECHNIQUE: Noncontrast 4.5 mm thick angled axial sections acquired from the foramen magnum to the vertex, with coronal and sagittal reformats. For radiation dose reduction, the following was used: automated exposure control, adjustment of mA and/or kV according to patient size. COMPARISON: [facility], CT, HEAD WITHOUT CONTRAST, 06/22/2017, 16:39. [facility], CT, HEAD WITHOUT CONTRAST, 09/21/2017, 12:52. FINDINGS: Image quality: Excellent. CSF spaces: Basal cisterns are patent. The ventricles are symmetric in size and shape. Brain: There is a subdural high-density focus at the anterolateral aspect of the right frontal lobe, measuring roughly 16 mm anteroposteriorly by 20 mm in thickness. Minimal leftward midline shift is present, measuring roughly 2 mm. There is cerebral volume loss for age, with resultant ventricular and sulcal prominence. There are periventricular and deep white matter chronic small vessel ischemic changes. There is intracranial internal carotid artery atherosclerosis. Skull and face: Calvarium and visualized facial bones appear intact, without suspicious lesions. Sinuses: Visualized sinuses and mastoids are clear. IMPRESSION: 1. Right frontal epidural hematoma associated with minimal leftward midline shift. Findings discussed with Deisy Mckeon on 11.15.18 at 1902 hrs. Dictated by: Iwona Hairston M.D. on 11/15/2018 at 19:01 Approved by: Iwona Hairston M.D. on 11/15/2018 at 19:04
--- NOTE | 2018-11-15 18:44 | DI.RAD.S_ITS ---
PROCEDURE: XR CHEST 1V INDICATIONS: trauma, glf TECHNIQUE: One view of the chest was acquired. COMPARISON: None. FINDINGS: Surgical changes and devices: None. Lungs and pleura: Lungs are clear. No pleural effusions or pneumothorax. Mediastinum: Mediastinal contours appear normal. Heart size is enlarged. Bones and chest wall: No suspicious bony lesions. Overlying soft tissues appear unremarkable. IMPRESSION: No acute process. Dictated by: Iwona Hairston M.D. on 11/15/2018 at 19:11 Approved by: Iwona Hairston M.D. on 11/15/2018 at 19:13
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
[2018-11-15 18:59] LABS: Add Manual Diff / Slide Review NO; Basophils Absolute Auto 0 /uL (0-100); Basophils Percent Auto 0.4 % (0-2); Eosinophils Absolute Auto 200 /uL (0-450); Eosinophils Percent Auto 3.3 % (2-4); Hematocrit 37.7 % (36-46); Hemoglobin 12.9 g/dL (12.0-16.0); Lymphocytes Absolute Auto 2300 /uL (1100-4500); Lymphocytes Percent Auto 33.5 % (25-40); Mean Corpuscular HGB Conc 34.1 % (30-36); Mean Corpuscular Hemoglobin 33.2 PG (26-34); Mean Corpuscular Volume 97.4 fL (80-100); Monocytes Absolute Auto 500 /uL (0-900); Monocytes Percent Auto 6.9 % (3-14); Neutrophils Absolute Auto 3800 /uL (1500-7000); Neutrophils Percent Auto 55.9 % (50-75); Platelet Count 144 X10^3/uL (150-400); Red Blood Cell Count 3.87 X10^6/uL (4.0-5.2); Red Cell Distribution Width 14.2 % (11.6-14.8); White Blood Cell Count 6.8 X10^3/uL (4.5-11.0)
[2018-11-15 19:01] VITALS: BP 147/63; PULSE 68; RESP 19; O2SAT 95
[2018-11-15 19:06] LABS: INR 0.9 (0.9-1.3); Prothrombin Time 10.8 SECONDS (10.1-12.7)
[2018-11-15 19:09] LABS: PTT Partial Thromboplastin Tim 32 SECONDS (26.4-36.2)
[2018-11-15 19:10] LABS: Blood Urea Nitrogen 8 mg/dL (7-17); Calcium 9.9 mg/dL (8.4-10.2); Carbon Dioxide 31 mmol/L (22-32); Chloride 102 mmol/L (98-107); Estimated Glomerular Filt Rate > 60.0 mL/min (>60); Glucose 240 mg/dL (80-110); HEMOLYSIS 34 (0-50); Potassium 4.1 mmol/L (3.4-5.1); Sodium 139 mmol/L (137-145)
[2018-11-15 19:16] VITALS: BP 150/78; PULSE 79; RESP 19; O2SAT 96
[2018-11-15 19:22] VITALS: BP 140/69; PULSE 71; RESP 17; O2SAT 96
--- NOTE | 2018-11-15 19:25 | PC.NURSE ---
patient states she can tell that something is wrong on the right side of hear head. Pt states she feels like her mentation is normal. Pt speaking in complete sentences. Moves all extremities normally. Denies pain any where besides head,
== END 2018-11-15 19:38 | disposition short-term general hospital (02) ==
PROVIDERS: Emergency Provider Emergency Medicine; Family Provider Family Medicine; PCP Family Medicine
DX: S06.4X9A Epidural hemorrhage with loss of consciousness of unspecified duration, initial encounter (principal); S62.502A Fracture of unspecified phalanx of left thumb, initial encounter for closed fracture; W19.XXXA Unspecified fall, initial encounter; Z79.82 Long term (current) use of aspirin
CPT/HCPCS: 36591; 70450; 71045; 73140; 80048; 85025; 85610; 85730; 93041; 99283; 99284

== ENCOUNTER 2018-12-08 07:59 | Emergency (ER) | payer MEDICARE, MEDICAID, SELFPAY ==
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
[2018-12-08 08:08] VITALS: BMI 45.2
[2018-12-08 08:24] VITALS: BP 145/89; PULSE 86; RESP 20; TEMP 36.8; O2SAT 98
[2018-12-08 09:44] LABS: RBC Urine None Seen (0-5/HPF)
[2018-12-08 09:57] LABS: Bacteria Urine Moderate (10-30); Culture Indicated Urine Specimen Cultured; Ictotest Urine Negative (Negative); Mucus Urine 2+ (Negative); Squamous Epithelial Cell Urine 1-5 /HPF (0-5/HPF); WBC Urine 1-5/HPF (0-5/HPF)
--- NOTE | 2018-12-08 10:03 | CM.SWNOTE ---
Social Work Note Per RN and MD, pt admitted with Urogenital issues and social needs of possible homelessness and requesting SW Consult for resources for housing and any other needs. Call came to SW around 0845 and [facility]DNA updated [facility] that Consult could occur around 1000 after MD rounds. Per EMR, pt was last admitted to [facility] on 08/2017 for cellulitis and wound care needs and pt was residing with her son and DIL at the time and was somewhat estranged from her spouse Crow although somewhat unclear how much contact they still had but some disclosed marital issues. Pt was established with Medicaid [facility] CG program at that time and EDNA was able to confirm that pt's CM was Daniela ([phone]) and was receiving 54 hrs a month of caregiving. Pt with hx of bipolar and pt had been admitting to visual and auditory hallucinations which she stated she has had off and on from age 14 yrs but has declined Mental Health services towards further support and coping skills. Patient had been able to be discharged home from this admit a year ago back to son's house with HH and ongoing [facility]. Per RN, for pt's current admit to the ER today at [facility] pt is stating that she is living in her car and that her Speeder Hand encouraged her to come to the ER for further resources. SW printed off housing, basic needs, and Medicaid expedited application for LTC for the pt and went to the ER at 1000 to complete bedside assessment to further determine if pt is still connected to [facility] or other community resources and determine d/c needs but LEAD BASED PAINT TECHNICIAN and RN confirmed that pt recently left the ER AMA. KAREN Gaspar
== END 2018-12-08 09:22 | disposition left against medical advice (07) ==
PROVIDERS: Emergency Provider Emergency Medicine; Family Provider Family Medicine; PCP Family Medicine
DX: R19.7 Diarrhea, unspecified (principal); Z53.20 Procedure and treatment not carried out because of patient's decision for unspecified reasons
CPT/HCPCS: 81003; 81015; 87086; 99282

== ENCOUNTER → 2018-12-15 14:39 | Outpatient (CLI) | payer MEDICARE, MEDICAID, SELFPAY ==
[2018-12-15 17:38] LABS: HIV 1 and 2 Antibody NEGATIVE (NEGATIVE)
[2018-12-15 18:41] LABS: Vitamin B12 591 pg/mL (239-931)
[2018-12-15 19:14] LABS: Urine N gonorrhoeae NOT DETECTED
[2018-12-15 19:15] LABS: Urine Chlamydia NOT DETECTED
[2018-12-18 17:07] LABS: RPR Screen Nonreactive (Nonreactive)
[2018-12-22 11:56] LABS: Hepatitis A Antibody IgM NONREACTIVE (NONREACTIVE); Hepatitis Acute Panel Interp 7.58; Hepatitis B Core Antibody IgM NONREACTIVE (NONREACTIVE); Hepatitis B Surface Antigen NONREACTIVE (NONREACTIVE); Hepatitis C Antibody REACTIVE
[2018-12-22 13:29] LABS: RPR Titer NONREACTIVE
== END ==
PROVIDERS: Family Provider Family Medicine; PCP Family Medicine; Visit Provider Family Medicine
DX: Z11.3 Encounter for screening for infections with a predominantly sexual mode of transmission (principal); G62.9 Polyneuropathy, unspecified
CPT/HCPCS: 36415; 80074; 82607; 86592; 86703; 87491; 87591

== ENCOUNTER 2018-12-18 07:43 | Emergency (ER) | payer MEDICARE, MEDICAID, SELFPAY ==
[2018-12-18 07:44] VITALS: BP 127/64; PULSE 67; RESP 15; TEMP 36.5; O2SAT 97; BMI 44.2
--- NOTE | 2018-12-18 07:56 | DI.CT.S_ITS ---
PROCEDURE: CT HEAD/BRAIN WO CON INDICATIONS: left arm numbness, hx epidural and tia TECHNIQUE: Noncontrast 4.5 mm thick angled axial sections acquired from the foramen magnum to the vertex, with coronal and sagittal reformats. For radiation dose reduction, the following was used: automated exposure control, adjustment of mA and/or kV according to patient size. COMPARISON: [facility], CT, CT HEAD/BRAIN WO CON, 11/15/2018, 18:34. FINDINGS: Image quality: Excellent. CSF spaces: Basal cisterns are patent. No extra-axial fluid collections. The ventricles are symmetric in size and shape. Brain: Previously seen right frontal epidural hematoma has decreased in size and density, currently measuring 7 mm thickness. There is cerebral volume loss for age, with resultant ventricular and sulcal prominence. There are periventricular and deep white matter chronic small vessel ischemic changes. There is intracranial internal carotid artery atherosclerosis. Skull and face: Calvarium and visualized facial bones appear intact, without suspicious lesions. Sinuses: Visualized sinuses and mastoids are clear. IMPRESSION: 1. Resolving right frontal epidural hematoma. No evidence of acute hemorrhage. Dictated by: Iwona Hairston M.D. on 12/18/2018 at 7:17 Approved by: Iwona Hairston M.D. on 12/18/2018 at 7:19
--- NOTE | 2018-12-18 08:17 | PC.NURSE ---
First to CT and when pt returned stated need to void. In BR and IV has not yet been started and labs not sent. MD curtis
--- NOTE | 2018-12-18 08:20 | ED.NEUROSD ---
HPI - Neuro Symptoms/Deficit General Chief Complaint: Neuro Symptoms/Deficit Stated Complaint: thinks having stroke/L arm numb Time Seen by Provider: 12/18/18 07:48 Source: patient Mode of arrival: ambulatory Limitations: no limitations History of Present Illness HPI Narrative: Patient is 63-year-old female presents with left arm numbness. She has a history of an epidural hematoma from 11/15/2018. She has no weakness in her left arm she has no headache. She says she noticed it when she woke up morning she was not sleeping on it so she thought that was weird. She really says her numbness starts in her pinky and moving up to her elbow. She also broke her left thumb recently on November 15 when she fell on 11/15/2018. She is supposed to follow up at [facility] for that as well. She has no chest pain no heart palpitations no shortness of breath with no other weakness. She does have a history of TIAs and she was taking Plavix, she states her neurologist started her back on aspirin which he says she is taking once daily. She states overall her head is improving. She actually feels like her arm is improving as well. Location: left arm On Anticoagulants: Yes (asa) Related Data Home Medications Medication Instructions Recorded Confirmed baclofen 1 tab PO HSP PRN #0 09/23/16 09/01/18 multivitamin [Multiple Vitamins] #0 09/23/16 09/01/18 gabapentin 300 mg capsule 600 mg PO QID #0 cap 03/03/18 09/01/18 aspirin 81 mg tablet,delayed 81 mg PO DAILY 12/15/18 12/15/18 release venlafaxine ER 75 mg 75 mg PO BID cap 12/15/18 12/15/18 capsule,extended release 24 hr Previous Rx's Medication Instructions Recorded tramadol 50 - 100 mg PO Q12HP #120 10/07/12 oxycodone 0 mg PO Q4HP PRN #180 tab 04/14/16 polyethylene glycol 3350 [Miralax] 17 gm PO QDAY PRN #90 gm 05/27/16 cholecalciferol (vitamin D3) 2,000 unit PO QDAY #90 cap 04/27/17 [Vitamin D3] atenolol 25 mg PO QDAY #30 tab 02/16/18 furosemide [Lasix] 20 mg PO BID #60 tab 03/15/18 famotidine 40 mg tablet 40 mg PO DAILY #30 tab 06/28/18 albuterol sulfate [Ventolin HFA] 1 - 2 puff INH Q4H #1 inh 07/22/18 nystatin 100,000 unit/gram topical 1 applictn TOP TID #30 gram 12/15/18 powder metoclopramide 10 mg tablet 10 mg PO Q6H PRN #40 tab 12/16/18 Allergies Allergy/AdvReac Type Severity Reaction Status Date / Time Aminoglycosides Allergy Mild ? Verified 12/18/18 07:52 [AMINOGLYCOSIDES] ibuprofen [IBUPROFEN] Allergy Mild ? TOXIC Verified 12/18/18 07:52 lamotrigine [LAMOTRIGINE] Allergy Mild ? Verified 12/18/18 07:52 Penicillins [PENICILLINS] Allergy Mild A BABY? Verified 12/18/18 07:52 quetiapine [QUETIAPINE] Allergy Mild ? Verified 12/18/18 07:52 Sulfa (Sulfonamide Allergy Mild rash Verified 12/18/18 07:52 Antibiotics) sulfamethoxazole Allergy Unknown Verified 12/18/18 07:52 [From BACTRIM] trimethoprim [From BACTRIM] Allergy Unknown Verified 12/18/18 07:52 acetaminophen [ACETAMINOPHEN] AdvReac Mild ? Verified 12/18/18 07:52 gentamicin [GENTAMICIN] AdvReac Mild EYE Verified 12/18/18 07:52 DROPS-MAKE EYE INFX WORSE lisinopril [LISINOPRIL] AdvReac Mild CAUSES Verified 12/18/18 07:52 PAIN MUSCLE Review of Systems Review of Systems ROS Unobtainable: All systems reviewed & are unremarkable except as noted in HPI and below Constitutional Denies chills, Denies fever(s), Denies lethargy and Denies weakness Eyes Denies change in vision, Denies eye discharge, Denies irritation and Denies loss of vision ENT Ears, Nose, Mouth, and Throat: Denies change in voice, Denies neck pain and Denies sore throat Cardiovascular Denies chest pain, Denies irregular heart rhythm, Denies lightheadedness, Denies palpitations, Denies dyspnea, Denies dyspnea on exertion and Denies orthopnea Respiratory Denies cough, Denies dyspnea, Denies dyspnea on exertion and Denies wheezing Gastrointestinal Gastrointestinal: Denies abdominal pain, Denies change in bowel habits, Denies diarrhea, Denies nausea and Denies vomiting Genitourinary Denies hematuria, Denies flank pain, Denies urinary incontinence and Denies urinary urgency Musculoskeletal Denies neck pain and Reports numbness Neurologic Reports as per HPI, Denies loss of vision, Reports numbness, Reports paresthesias and Denies weakness Endocrine Denies palpitations Allergic/Immunologic Denies wheezing [facility] History of carpal tunnel repair (Resolved) History of hip replacement (Resolved 2002) History of spinal fusion (Resolved) Status post delivery (Resolved) Status post hysterectomy (Resolved) Status post laminectomy (Resolved) Family History Father Prostate cancer Mother Metastatic cancer Social History marital status: Smoking Status: Current some day smoker Social History marital status: Smoking Status: Current some day smoker Exam Initial Vital Signs Initial Vital Signs: Vital Signs Temperature 97.7 F 12/18/18 07:44 Pulse Rate 67 12/18/18 07:44 Respiratory Rate 15 12/18/18 07:44 Blood Pressure 127/64 12/18/18 07:44 Pulse Oximetry 97 12/18/18 07:44 GENERAL: Well-appearing, well-nourished and in no acute distress. HEENT: Head atraumatic,EOMI, pupils reactive, face symmetric, moist mucous membranes EARS: Tympanic membranes visualized, no erythema or bulging, no hemotympanum PHARYNX: No erythema, no tonsillar exudate, no cervical lymphadenopathy CARDIOVASCULAR: Regular rate and rhythm without murmurs, rubs or gallops. RESPIRATORY: Breath sounds equal bilaterally, no wheezes rales or rhonchi. ABDOMEN: Soft, nontender. Normoactive bowel sounds all 4 quadrants. No guarding or rebound. EXTREMITIES: Normal range of motion, no clubbing or edema. Neurovascularly intact NEUROLOGICAL: Alert and oriented x4.Normal gait and speech. Cranial nerves II through XII grossly intact. Good [id number], good [id number], strength equal bilaterally, no dysarthria or aphasia, sensation in tact to soft touch bilaterally, no visual changes, no facial droop SKIN: Warm, dry, no laceration, no petechiae, no rashes or lesions. Scores NIH Stroke Scale Level of Conciousness: Alert, keenly responsive Ask month/age: Answers both questions correctly. Open/close eyes, close hand: Performs both tasks correctly Best gaze horizontal: Normal Visual kelley: No visual loss Facial palsy: Normal symetrical movement Left arm drift: No drift for full 10 sec Right arm drift: No drift for full 10 sec Left leg drift: No drift for full 10 sec Right leg drift: No drift for full 10 sec Limb ataxia: Absent Sensory on face/arms/legs: Mild to moderate sensory loss, can tell touch Best language: No aphasia, normal Dysarthria: Normal Extinction or inattention: No abnormality Total NIH Stroke scale score: 1 Course Orders Ordered: ED Orders 12/18/18 07:56 CT head/brain wo con Stat EKG-12 Lead Stat 12/18/18 08:20 Complete Blood Count AUTO DIFF Stat Comprehensive Metabolic Panel Stat Partial Thromboplastin Time Stat Prothrombin Time INR Stat Troponin & CK Cardiac Panel Stat Urine Culture Stat Urine Drug Screen, Rapid Stat Urine Microscopic Stat 12/18/18 09:44 Consult to Manager Ambulatory Stat Vital Signs - 8 hr 12/18/18 07:44 12/18/18 08:41 12/18/18 09:05 Temperature 97.7 F Pulse Rate 67 65 70 Respiratory Rate 15 19 14 Blood Pressure 127/64 Blood Pressure [Left Arm] 102/61 102/52 L Pulse Oximetry 97 98 12/18/18 09:18 12/18/18 09:32 Temperature Pulse Rate 61 70 Respiratory Rate 14 23 Blood Pressure Blood Pressure [Left Arm] 111/52 L 103/65 Pulse Oximetry 97 MDM - Neuro Symptoms/Deficit Lab Data Attestation: I reviewed the patient's lab results. Result diagrams: 12/18/18 08:20 12/18/18 08:20 Lab Results 12/18/18 12/18/18 12/18/18 Range/Units 08:20 08:20 08:20 WBC 10.8 (4.5-11.0) X10^3/uL RBC 4.17 (4.0-5.2) X10^6/uL Hgb 13.8 (12.0-16.0) g/dL Hct 40.4 (36-46) % MCV 96.9 (80-100) fL MCH 33.0 (26-34) PG MCHC 34.1 (30-36) % RDW 13.8 (11.6-14.8) % Plt Count 167 (150-400) X10^3/uL Neut % (Auto) 55.7 (50-75) % Lymph % (Auto) 33.1 (25-40) % [place] % (Auto) 6.9 (3-14) % Eos % (Auto) 2.8 (2-4) % Baso % (Auto) 1.5 (0-2) % Neut # (Auto) 6000 (7932-6877) /uL Lymph # (Auto) 3600 (2774-7422) /uL [place] # (Auto) 800 (0-900) /uL Eos # (Auto) 300 (0-450) /uL Baso # (Auto) 200 H (0-100) /uL PT 10.6 (10.1-12.7) SECONDS INR 0.9 (0.9-1.3) APTT 34 D (26.4-36.2) SECONDS Sodium 140 (137-145) mmol/L Potassium 4.6 (3.4-5.1) mmol/L Chloride 101 (98-107) mmol/L Carbon Dioxide 31 (22-32) mmol/L BUN 16 (7-17) mg/dL Creatinine 0.50 L (0.52-1.04) mg/dL Estimated GFR > 60.0 (>60) mL/min BUN/Creatinine Ratio 32.0 H (6-22) Glucose 182 H (80-110) mg/dL Calcium 10.0 (8.4-10.2) mg/dL Total Bilirubin 0.5 (0.2-1.3) mg/dL AST 29 (14-36) IU/L ALT 22 (9-52) IU/L Alkaline Phosphatase 123 (38-126) U/L Total Creatine Kinase 23 L (30-135) U/L CK-MB (CK-2) TNP CK-MB (CK-2) Rel Index TNP Troponin I < 0.012 (0.01-0.034) ng/mL Total Protein 7.4 (6.3-8.2) g/dL Albumin 4.1 (3.5-5.0) g/dL Globulin 3.3 (1.7-4.1) g/dL Albumin/Globulin Ratio 1.2 (1.0-2.8) Urine RBC (0-5/HPF) Urine WBC (0-5/HPF) Ur Squamous Epith Cells (0-5/HPF) Calcium Oxalate Crystal Amorphous Sediment Urine Bacteria (None) Ur Culture Indicated? Urine Opiates Screen (Negative) Ur Oxycodone Screen (Negative) Urine Methadone Screen (Negative) Ur Barbiturates Screen (Negative) U Tricyclic Antidepress (Negative) Ur Phencyclidine Scrn (Negative) Ur Amphetamines Screen (Negative) U Methamphetamines Scrn (Negative) Ur MDMA Scrn (Ecstasy) (Negative) U Benzodiazepines Scrn (Negative) Urine Cocaine Screen (Negative) U Marijuana (THC) Screen (Negative) 12/18/18 12/18/18 Range/Units 08:20 08:20 WBC (4.5-11.0) X10^3/uL RBC (4.0-5.2) X10^6/uL Hgb (12.0-16.0) g/dL Hct (36-46) % MCV (80-100) fL MCH (26-34) PG MCHC (30-36) % RDW (11.6-14.8) % Plt Count (150-400) X10^3/uL Neut % (Auto) (50-75) % Lymph % (Auto) (25-40) % [place] % (Auto) (3-14) % Eos % (Auto) (2-4) % Baso % (Auto) (0-2) % Neut # (Auto) (9169-1574) /uL Lymph # (Auto) (5283-9572) /uL [place] # (Auto) (0-900) /uL Eos # (Auto) (0-450) /uL Baso # (Auto) (0-100) /uL PT (10.1-12.7) SECONDS INR (0.9-1.3) APTT (26.4-36.2) SECONDS Sodium (137-145) mmol/L Potassium (3.4-5.1) mmol/L Chloride (98-107) mmol/L Carbon Dioxide (22-32) mmol/L BUN (7-17) mg/dL Creatinine (0.52-1.04) mg/dL Estimated GFR (>60) mL/min BUN/Creatinine Ratio (6-22) Glucose (80-110) mg/dL Calcium (8.4-10.2) mg/dL Total Bilirubin (0.2-1.3) mg/dL AST (14-36) IU/L ALT (9-52) IU/L Alkaline Phosphatase (38-126) U/L Total Creatine Kinase (30-135) U/L CK-MB (CK-2) CK-MB (CK-2) Rel Index Troponin I (0.01-0.034) ng/mL Total Protein (6.3-8.2) g/dL Albumin (3.5-5.0) g/dL Globulin (1.7-4.1) g/dL Albumin/Globulin Ratio (1.0-2.8) Urine RBC 0-1/hpf (0-5/HPF) Urine WBC 1-5/hpf (0-5/HPF) Ur Squamous Epith Cells 1-5 /hpf (0-5/HPF) Calcium Oxalate Crystal Many H Amorphous Sediment 1+ Urine Bacteria Few (2-10) H (None) Ur Culture Indicated? Specimen cultured Urine Opiates Screen Negative (Negative) Ur Oxycodone Screen Positive H (Negative) Urine Methadone Screen Negative (Negative) Ur Barbiturates Screen Negative (Negative) U Tricyclic Antidepress Negative (Negative) Ur Phencyclidine Scrn Positive H (Negative) Ur Amphetamines Screen Negative (Negative) U Methamphetamines Scrn Negative (Negative) Ur MDMA Scrn (Ecstasy) Negative (Negative) U Benzodiazepines Scrn Negative (Negative) Urine Cocaine Screen Negative (Negative) U Marijuana (THC) Screen Positive H (Negative) Urine Dip Bedside Urine Glucose Negative Bedside Urine Bilirubin - Negative Bedside Urine Ketone - Negative Urine Specific [place] 1.030 Bedside Urine Occult Blood - Negative Bedside Urine pH 5.5 Bedside Urine Protein +/- 15 Bedside Urine Urobilinogen +/- 1mg Bedside Urine Nitrite - Negative Bedside Urine Leukocytes + [address] scan - head: Radiologist's impression: PROCEDURE: CT HEAD/BRAIN WO CON INDICATIONS: left arm numbness, hx epidural and tia TECHNIQUE: Noncontrast 4.5 mm thick angled axial sections acquired from the foramen magnum to the vertex, with coronal and sagittal reformats. For radiation dose reduction, the following was used: automated exposure control, adjustment of mA and/or kV according to patient size. COMPARISON: [facility], CT, CT HEAD/BRAIN WO [facility], 11/15/2018, 18:34. FINDINGS: Image quality: Excellent. CSF spaces: Basal cisterns are patent. No extra-axial fluid collections. The ventricles are symmetric in size and shape. Brain: Previously seen right frontal epidural hematoma has decreased in size and density, currently measuring 7 mm thickness. There is cerebral volume loss for age, with resultant ventricular and sulcal prominence. There are periventricular and deep white matter chronic small vessel ischemic changes. There is intracranial internal carotid artery atherosclerosis. Skull and face: Calvarium and visualized facial bones appear intact, without suspicious lesions. Sinuses: Visualized sinuses and mastoids are clear. IMPRESSION: 1. Resolving right frontal epidural hematoma. No evidence of acute hemorrhage. Dictated by: Iwona Hairston M.D. on 12/18/2018 at 7: ECG Data Attestation: I personally reviewed and interpreted this ECG as follows: Prior ECG tracings: available for review MDM Narrative Medical decision making narrative: Overall patient is improving. To her elbow. Sometimes is worse with movement sometimes not. This seems to be more peripheral rather than TIA. I discussed this with patient. She is also given a social work consult to help with any resources she may need. She seems to be moving around quite easily in the room not convinced. She is not a tPA candidate due to the recent epidural hemorrhage. Patient agrees and wants to be discharged. Discharge Plan Departure Patient Disposition: Home Clinical Impression: Peripheral neuropathy Qualifiers: Peripheral neuropathy type: polyneuropathy, unspecified Qualified Code(s): G62.9 - Polyneuropathy, unspecified Discharge Date/Time: 12/18/18 09:52 Interventions: ED Discharge Assessment Last Done: 12/18/18 09:52 Activity Restrictions/Additional Instructions: *You have been diagnosed with peripheral neuropathy *What to do: Increase activity as tolerated *Continue to take medications as directed Continue aspirin daily as prescribed-and recommended by a neurologist *Follow up with your primary care provider in 2-3 days *Return to ER if you should have increasing arm numbness, weakness, difficulty speaking or any new, worsening or concerning symptoms Prescriptions: No Action aspirin 81 mg tablet,delayed release (DR/EC) 81 mg PO DAILY RF: 0 nystatin 100,000 unit/gram powder 1 applictn TOP TID Qty: 30 RF: 2 tramadol 50 MG tablet 50 - 100 mg PO Q12HP Qty: 120 RF: 0 oxycodone 5 MG tablet PO Q4HP PRNQty: 180 RF: 0 polyethylene glycol 3350 [Miralax] 17 GM powder in packet 17 gm PO QDAY PRNQty: 90 RF: 3 baclofen 10 MG tablet 1 tab PO HSP PRNQty: 0 RF: 0 multivitamin [Multiple Vitamins] 1 EACH tablet Qty: 0 RF: 0 cholecalciferol (vitamin D3) [Vitamin D3] 2,000 UNIT capsule 2,000 unit PO QDAY Qty: 90 RF: 3 atenolol 25 mg tablet 25 mg PO QDAY Qty: 30 RF: 12 gabapentin [Neurontin] 300 mg capsule 600 mg PO QID Qty: 0 RF: 0 furosemide [Lasix] 20 mg tablet 20 mg PO BID Qty: 60 RF: 5 famotidine 40 mg tablet 40 mg PO DAILY Qty: 30 RF: 3 albuterol sulfate [Ventolin HFA] 90 mcg/actuation HFA aerosol inhaler 1 - 2 puff INH Q4H Qty: 1 RF: 11 metoclopramide HCl 10 mg tablet 10 mg PO Q6H PRN (Reason: nausea and vomiting) Qty: 40 RF: 3 venlafaxine [Effexor XR] 75 mg capsule,extended release 24hr 75 mg PO BID RF: 0 Referrals: Geovanna Lewis MD [Primary Care Provider] -
[2018-12-18 08:33] LABS: Add Manual Diff / Slide Review NO; Basophils Absolute Auto 200 /uL (0-100); Basophils Percent Auto 1.5 % (0-2); Eosinophils Absolute Auto 300 /uL (0-450); Eosinophils Percent Auto 2.8 % (2-4); Hematocrit 40.4 % (36-46); Hemoglobin 13.8 g/dL (12.0-16.0); Lymphocytes Absolute Auto 3600 /uL (1100-4500); Lymphocytes Percent Auto 33.1 % (25-40); Mean Corpuscular HGB Conc 34.1 % (30-36); Mean Corpuscular Volume 96.9 fL (80-100); Monocytes Absolute Auto 800 /uL (0-900); Monocytes Percent Auto 6.9 % (3-14); Neutrophils Absolute Auto 6000 /uL (1500-7000); Neutrophils Percent Auto 55.7 % (50-75); Platelet Count 167 X10^3/uL (150-400); Red Blood Cell Count 4.17 X10^6/uL (4.0-5.2); Red Cell Distribution Width 13.8 % (11.6-14.8); White Blood Cell Count 10.8 X10^3/uL (4.5-11.0)
[2018-12-18 08:38] LABS: INR 0.9 (0.9-1.3); Prothrombin Time 10.6 SECONDS (10.1-12.7)
[2018-12-18 08:41] VITALS: BP 102/61; PULSE 65; RESP 19
[2018-12-18 08:41] LABS: PTT Partial Thromboplastin Tim 34 SECONDS (26.4-36.2)
[2018-12-18 08:42] LABS: Urine Amphetamines Negative (Negative); Urine Barbiturates Negative (Negative); Urine Benzodiazepines Negative (Negative); Urine Cocaine Negative (Negative); Urine MDMA Negative (Negative); Urine Methadone Negative (Negative); Urine Methamphetamines Negative (Negative); Urine Morphine/Opi cutoff 2000 Negative (Negative); Urine Oxycodone Positive (Negative); Urine Phencyclidine Positive (Negative); Urine Tetrahydrocannabinol Positive (Negative); Urine Tricyclic Antidepressant Negative (Negative)
[2018-12-18 08:43] LABS: Alanine Aminotransferase 22 IU/L (9-52); Albumin 4.1 g/dL (3.5-5.0); Albumin Globulin Ratio 1.2 (1.0-2.8); Alkaline Phosphatase 123 U/L (38-126); Aspartate Aminotransferase 29 IU/L (14-36); Bilirubin Total 0.5 mg/dL (0.2-1.3); Blood Urea Nitrogen 16 mg/dL (7-17); Carbon Dioxide 31 mmol/L (22-32); Chloride 101 mmol/L (98-107); Creatine Kinase 23 U/L (30-135); Estimated Glomerular Filt Rate > 60.0 mL/min (>60); Globulin 3.3 g/dL (1.7-4.1); Glucose 182 mg/dL (80-110); HEMOLYSIS 24 (0-50); Potassium 4.6 mmol/L (3.4-5.1); Sodium 140 mmol/L (137-145); Total Protein 7.4 g/dL (6.3-8.2)
[2018-12-18 08:55] LABS: Troponin I < 0.012 ng/mL (0.01-0.034)
[2018-12-18 09:03] LABS: Amorphous Sediment Urine 1+; Bacteria Urine Few (2-10); Calcium Oxalate Crystals Urine Many; Culture Indicated Urine Specimen Cultured; RBC Urine 0-1/HPF (0-5/HPF); Squamous Epithelial Cell Urine 1-5 /HPF (0-5/HPF); WBC Urine 1-5/HPF (0-5/HPF)
[2018-12-18 09:05] VITALS: BP 102/52; PULSE 70; RESP 14; O2SAT 98
[2018-12-18 09:18] VITALS: BP 111/52; PULSE 61; RESP 14
[2018-12-18 09:32] VITALS: BP 103/65; PULSE 70; RESP 23; O2SAT 97
--- NOTE | 2018-12-18 10:59 | CM.SWNOTE ---
Social Work Note: This WOOD DRILL OPERATOR was requested this morning to meet w/Roselia in the ER waiting room; she has been medically cleared to DC after TIA r/o and states she is living in her car w/her cat. Met w/Roselia and explained role. Roselia has been living in her car w/her cat off/on for months. She had stable housing in [place] for many years and had to move out when her landlord sold the house. At that time she moved in w/her [facility] cg and moved out months ago because the would not allow her to keep her storage belongings there. Roselia pays monthly for storage. Since moving out of her cg's home, Roselia has spent time w/friends and at the [place] [facility]. Roselia explained she no longer could stay at the [facility] in [place] because she needed to go to counseling and she refused that. Roselia gets approx $1,000 mo from social security, has food stamps, and is on the L[employer] program,. She says she will lose her LANDY benefit if she does not secure stable housing by the end of next month. Roselia's LAND[facility] CM (did not obtain name) has discussed [facility] options w/Roselia is hesitant because she knows she would only have $60 monthly, her cat may not be allowed in an [facility], and she fears she could not come and go as she pleases. This WOOD DRILL OPERATOR addressed these concerns, the cat being the main barrier and Roselia explained she will not part from her cat. This WOOD DRILL OPERATOR strongly encouraged Roselia to consider her own health and vulnerability and suggested she reconsider living in a safe, warm [facility] where she would have food and necessities provided. Roselia will consider . She thinks she may also have a room available to rent from a friend coming up. Roselia knows where to access food ledbetter, shinto dinners, and public showers. She is waiting for her next chk to deposit the beginning of December. Roselia has three copies of the Senior Resource Guide and denies further needs. This WOOD DRILL OPERATOR has no other resources to offer Roselia that she is not already aware of. This WOOD DRILL OPERATOR strongly encouraged Roselia to call her [facility] CM to discuss facility placement ideas and also go to [facility] [place] [facility] to speak w/someone in their housing resource center and Roselia agreed to such. KAREN Julian
== END 2018-12-18 09:52 | disposition home or self-care (01) ==
PROVIDERS: Emergency Provider Emergency Medicine; PCP Family Medicine
DX: G62.9 Polyneuropathy, unspecified (principal); R20.0 Anesthesia of skin; Z86.73 Personal history of transient ischemic attack (TIA), and cerebral infarction without residual deficits; Z79.82 Long term (current) use of aspirin
CPT/HCPCS: 36591; 70450; 80053; 80305; 81003; 81015; 82550; 84484; 85025; 85610; 85730; 87086; 93005; 93010; 99284; 99285

== ENCOUNTER → 2018-12-22 17:34 | Outpatient (CLI) | payer MEDICARE, MEDICAID, SELFPAY | PROVIDERS: PCP Family Medicine; Visit Provider Family Medicine | DX: R76.8 Other specified abnormal immunological findings in serum (principal) | CPT/HCPCS: 36415; 87522 ==

== ENCOUNTER 2018-12-25 02:40 | Emergency (ER) | payer MEDICARE, MEDICAID, SELFPAY ==
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
[2018-12-25 02:47] VITALS: BP 114/98; PULSE 67; RESP 18; TEMP 36.8; O2SAT 94; BMI 44.1
--- NOTE | 2018-12-25 02:54 | DI.RAD.S_ITS ---
PROCEDURE: XR FOOT LT MIN 3V INDICATIONS: pain after falling and after surgery TECHNIQUE: 3 views of the foot were acquired. COMPARISON: [facility], CR, XR FOOT LT MIN 3V, 01/09/2018, 19:29. [facility], CR, XR FOOT RT MIN 3V, 11/29/2017, 19:47. FINDINGS: Bones: No osseous fractures or dislocations. Unusually extensive metallic fixation devices are noted involving fusion of the hindfoot and midfoot with visualization of both lateral and medial fixation plates. The lateral plate is fractured in its proximal third. The midfoot fusion screws are angulated at the fracture points along their threads (2 specific screws which are cannulated and crossed the hindfoot/midfoot junction). Flattening of the midfoot arch is present. No suspicious bony lesions. Soft tissues: No tibiotalar joint effusion. Achilles tendon appears normal. IMPRESSION: Extensive fusion devices are present but the effusion appears to have failed and there is a fracture across the lateral fixation plate between the calcaneus and cuboid bone and at least 2 of the midfoot-hindfoot long fusion cannulated screws are fractured with angulation at the fracture planes. Dictated by: Anoop Michel M.D. on 12/25/2018 at 8:08 Approved by: Anoop Michel M.D. on 12/25/2018 at 8:10
--- NOTE | 2018-12-25 02:54 | DI.RAD.S_ITS ---
PROCEDURE: XR ANKLE LT MIN 3V INDICATIONS: lateral pain after fall TECHNIQUE: 3 views of the ankle were acquired. COMPARISON: [facility], CR, XR FOOT LT MIN 3V, 12/25/2018, 2:59. [facility], CR, XR ANKLE LT MIN 3V, 01/09/2018, 19:26. [facility], CR, ANKLE 3 VIEWS LEFT, 07/25/2011, 15:06. FINDINGS: Bones: No fractures or dislocations. Extensive fusion procedure has been performed with a multitude of fusion screws in place and at least one fixation plate located medially at the hindfoot midfoot junction. Note is made of at least 2 fractures of the fixation screws superimposed on the talonavicular articulation seen on the frontal projection. These appear to cross the midfoot/hindfoot junction on the lateral view and the expected arch of the midfoot shows flattening centered on these 2 fractured screws. Ankle mortise is normally aligned. No suspicious bony lesions. Soft tissues: No tibiotalar joint effusion. Achilles tendon appears normal. IMPRESSION: Extensive fusion screws, 2 of which are fractured at the midfoot/hindfoot junction and angulated cephalad as a result with flattening of the midfoot arch. Dictated by: Anoop Michel M.D. on 12/25/2018 at 8:06 Approved by: Anoop Michel M.D. on 12/25/2018 at 8:08
[2018-12-25 03:50] VITALS: BP 114/90; PULSE 60; RESP 20; O2SAT 92
== END 2018-12-25 03:50 | disposition home or self-care (01) ==
PROVIDERS: Emergency Provider Emergency Medicine; PCP Family Medicine
DX: R22.42 Localized swelling, mass and lump, left lower limb (principal)
CPT/HCPCS: 73610; 73630; 99282; 99283

== ENCOUNTER 2019-02-14 15:16 | Emergency (ER) | payer MEDICARE, MEDICAID, SELFPAY ==
[2019-02-14 15:36] VITALS: BP 138/76; PULSE 67; RESP 14; TEMP 36.8; O2SAT 94; BMI 44.8
--- NOTE | 2019-02-14 15:47 | DI.RAD.S_ITS ---
PROCEDURE: XR HIP W PEL IF DONE LT 2V INDICATIONS: fall 7 days. hip and groin pain TECHNIQUE: AP pelvis and lateral view of the left hip acquired. COMPARISON: None. FINDINGS: Bones: Patient is status post bilateral hip arthroplasties, with hardware components in expected positions. The hip joint appears congruent. The visualized bony structures appear intact. Soft tissues: Overlying postoperative changes are noted. No suspicious soft tissue densities. IMPRESSION: Bilateral hip arthroplasties. No fracture. No acute osseous lesion. If symptoms and/or clinical suspicion for pathology persists, further assessment with repeat radiographs (7-10 days) or advanced imaging (e.g. CT, MRI or bone scan) may be helpful. Dictated by: Elana Jeff MD, PhD on 02/14/2019 at 16:06 Approved by: Elana Jeff MD, PhD on 02/14/2019 at 16:06
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
[2019-02-14 18:05] VITALS: BP 143/95; PULSE 58; RESP 18; O2SAT 96
== END 2019-02-14 18:13 | disposition home or self-care (01) ==
PROVIDERS: Emergency Provider Emergency Medicine; PCP Family Medicine
DX: S70.02XA Contusion of left hip, initial encounter (principal); W01.0XXA Fall on same level from slipping, tripping and stumbling without subsequent striking against object, initial encounter
CPT/HCPCS: 73502; 99282; 99283

== ENCOUNTER 2019-03-24 14:07 | Emergency (ER) | payer MEDICARE, MEDICAID, SELFPAY ==
[2019-03-24 14:18] VITALS: BP 147/55; PULSE 59; RESP 20; TEMP 36.7; O2SAT 98; BMI 45.2
--- NOTE | 2019-03-24 14:35 | DI.CT.S_ITS ---
PROCEDURE: CT CERVICAL SPINE WO CON INDICATIONS: pain after hitting head TECHNIQUE: Noncontrast 3 mm thick sections acquired from the skull base to the T4 level. Sagittal and coronal reformats were then constructed. For radiation dose reduction, the following was used: automated exposure control, adjustment of mA and/or kV according to patient size. COMPARISON: [facility], CT, C-SPINE WITHOUT CONTRAST, 06/22/2017, 16:39. FINDINGS: Image quality: Excellent. Bones: No fractures or dislocations. Straightening of cervical curvature. There is discectomy and anterior fusion at C5-C6. Moderate degenerative disc disease at C6-C7. There is mild bilateral facet arthropathy. Moderate scoliosis in upper thoracic spine. Visualized superior ribs are intact. Soft tissues: Prevertebral soft tissues are normal in thickness. No paravertebral hematomas. No apical pneumothoraces. IMPRESSION: 1. No cervical spine fracture. 2. Degenerative changes. Dictated by: Petrona Peguero M.D. on 03/24/2019 at 15:29 Approved by: Petrona Peguero M.D. on 03/24/2019 at 15:42
--- NOTE | 2019-03-24 14:35 | DI.CT.S_ITS ---
PROCEDURE: CT HEAD/BRAIN WO CON INDICATIONS: hit head, dizzy hx bleed TECHNIQUE: Noncontrast 4.5 mm thick angled axial sections acquired from the foramen magnum to the vertex, with coronal and sagittal reformats. For radiation dose reduction, the following was used: automated exposure control, adjustment of mA and/or kV according to patient size. COMPARISON: [facility], CT, HEAD WITHOUT CONTRAST, 09/21/2017, 12:52. [facility], CT, CT HEAD/BRAIN WO CON, 11/15/2018, 18:34. [facility], CT, CT HEAD/BRAIN WO CON, 12/18/2018, 7:57. FINDINGS: Image quality: Excellent. CSF spaces: Basal cisterns are patent. No extra-axial fluid collections. Chronic frontal subdural hematoma seen on and 12/18/18 is no longer visualized. The ventricles are symmetric in size and shape. Brain: No intracranial bleeds or masses. There is cerebral volume loss for age, with resultant ventricular and sulcal prominence. There are periventricular and deep white matter chronic small vessel ischemic changes. There is intracranial internal carotid artery atherosclerosis. Skull and face: Hyperostosis frontalis. Calvarium and visualized facial bones appear intact, without suspicious lesions. Sinuses: Visualized sinuses and mastoids are clear. IMPRESSION: 1. No acute intracranial abnormalities. 2. Cerebral volume loss and chronic microvascular ischemic changes. Dictated by: Petrona Pegueor M.D. on 03/24/2019 at 15:26 Approved by: Petrona Peguero M.D. on 03/24/2019 at 15:29
--- NOTE | 2019-03-24 15:08 | PC.NURSE ---
numbness to bilateral earlobes and headache after hitting back of head on wall.
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
[2019-03-24 16:06] VITALS: BP 130/62; PULSE 60; RESP 16; O2SAT 96
== END 2019-03-24 16:07 | disposition home or self-care (01) ==
PROVIDERS: Emergency Provider Nurse Practitioner Family; PCP Family Medicine
DX: S09.90XA Unspecified injury of head, initial encounter (principal); W19.XXXA Unspecified fall, initial encounter
CPT/HCPCS: 70450; 72125; 99282; 99284

== ENCOUNTER → 2019-03-25 13:50 | Outpatient (CLI) | payer MEDICARE, MEDICAID, SELFPAY ==
[2019-03-25 15:01] LABS: Hemoglobin A1C% w Est Avg Glu 6.2 % (4.0-6.0)
[2019-03-27 15:56] LABS: Creatinine Urine Random 52.3 mg/dL
[2019-03-27 16:04] LABS: Microalbumi Creatinin Ratio Ur 11.4 ug/mg CR (<30); Microalbumin Urine Random < 0.6 mg/dL (0-1.6)
== END ==
PROVIDERS: PCP Family Medicine; Visit Provider Family Medicine
DX: R73.9 Hyperglycemia, unspecified (principal)
CPT/HCPCS: 36415; 82043; 82570; 83036

== ENCOUNTER 2019-07-09 13:54 | Emergency (ER) | payer MEDICARE, MEDICAID, SELFPAY ==
[2019-07-09 13:58] VITALS: BP 131/74; PULSE 66; RESP 16; TEMP 36.5; O2SAT 94
--- NOTE | 2019-07-09 14:28 | DI.CT.S_ITS ---
PROCEDURE: CT HEAD/BRAIN WO CON INDICATIONS: fall, head injury, on aspirin TECHNIQUE: Noncontrast 4.5 mm thick angled axial sections acquired from the foramen magnum to the vertex, with coronal and sagittal reformats. For radiation dose reduction, the following was used: automated exposure control, adjustment of mA and/or kV according to patient size. COMPARISON: [facility], CT, CT HEAD/BRAIN WO CON, 03/24/2019, 15:06. FINDINGS: Image quality: Diagnostic. CSF spaces: Basal cisterns are patent. No extra-axial fluid collections. Ventricles are normal in size and shape. Brain: No midline shift. No intracranial masses or hemorrhage. Currie-white matter interface is normal. Skull and face: Calvarium and visualized facial bones are intact, without suspicious lesions. Hyperostosis frontalis is present. Sinuses: Visualized sinuses and mastoids are clear. IMPRESSION: Stable head CT. No acute intracranial hemorrhage. Dictated by: Miguel Simmons M.D. on 07/09/2019 at 14:24 Approved by: Miguel Simmons M.D. on 07/09/2019 at 14:25
--- NOTE | 2019-07-09 14:28 | DI.CT.S_ITS ---
PROCEDURE: CT FACIAL BONES WO CON INDICATIONS: fall with face / head injury TECHNIQUE: Noncontrast 2.5 mm thick axial images acquired from the mandible through the frontal sinuses, with coronal and sagittal reformatting. For radiation dose reduction, the following was used: automated exposure control, adjustment of mA and/or kV according to patient size. COMPARISON: None. FINDINGS: Image quality: Diagnostic. Bones and teeth: Orbital amaya are intact. Sinus amaya show no fracture or deformity. Nasal bones and septum are intact. Visualized portions of the mandible demonstrate no fractures or subluxation. Zygomatic arches are intact. Pterygoid plates are intact. Visualized portions of the skull base and auditory canals are intact. Slight irregularity is identified along the anterior aspect of the maxilla to the left of midline, which probably is related to previous injury or surgery. Sinuses: Paranasal sinuses are aerated, without fluid levels, mucosal thickening, or mucoceles. Mastoid air cells are aerated. Soft tissues: No edema, masses, or fluid collections. No enlarged lymph nodes. No soft tissue lacerations or debris. IMPRESSION: No acute displaced facial bone fractures. Dictated by: Miguel Simmons M.D. on 07/09/2019 at 14:25 Approved by: Miguel Simmons M.D. on 07/09/2019 at 14:29
[2019-07-09 16:00] VITALS: BP 110/64; PULSE 60; RESP 16; O2SAT 93
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
== END 2019-07-09 15:54 | disposition home or self-care (01) ==
PROVIDERS: Emergency Provider Emergency Medicine; PCP Family Medicine
DX: S00.83XA Contusion of other part of head, initial encounter (principal); W01.198A Fall on same level from slipping, tripping and stumbling with subsequent striking against other object, initial encounter; Z79.82 Long term (current) use of aspirin
CPT/HCPCS: 70450; 70486; 99283; 99284

== ENCOUNTER → 2019-08-26 11:27 | Outpatient (CLI) | payer MEDICARE, MEDICAID, SELFPAY ==
[2019-08-26 12:22] LABS: Hemoglobin A1C% w Est Avg Glu 7.7 % (4.0-6.0)
[2019-08-26 12:37] LABS: Cholesterol 241 mg/dL (140-199); HDL Cholesterol 42 mg/dL (40-60); LDL Cholesterol Calculated 145 mg/dL (<100); Triglycerides 270 mg/dL (35-150)
== END ==
PROVIDERS: PCP Family Medicine; Referring Provider Family Medicine; Visit Provider Family Medicine
DX: R73.03 Prediabetes (principal)
CPT/HCPCS: 36415; 80061; 83036

== ENCOUNTER 2019-11-06 02:23 | Emergency (ER) | payer MEDICARE, MEDICAID, SELFPAY ==
[2019-11-06 02:37] VITALS: BP 158/79; PULSE 90; RESP 20; O2SAT 95; BMI 46.9
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
[2019-11-06] MEDS: LIDOCAINE 1% W/EPI 1 ML SUBCUT (02:50)
[2019-11-06 03:00] VITALS: BP 128/59; PULSE 90; RESP 18; TEMP 37; O2SAT 94
== END 2019-11-06 03:00 | disposition home or self-care (01) ==
PROVIDERS: Emergency Provider Emergency Medicine; PCP Family Medicine
DX: L02.212 Cutaneous abscess of back [any part, except buttock and flank] (principal)
CPT/HCPCS: 10060; 99282; 99283

== ENCOUNTER → 2020-01-05 10:17 | Outpatient (CLI) | payer MEDICARE, MEDICAID, SELFPAY ==
--- NOTE | 2020-01-05 10:19 | DI.MG.S_ITS ---
BILATERAL DIGITAL SCREENING MAMMOGRAM 3D/2D WITH CAD: 01/05/2020 CLINICAL: Routine screening. Comparison is made to exams dated: 10/18/2014 mammogram and 10/20/2013 mammogram - [facility] ANASTACIA. There are scattered fibroglandular elements in both breasts. Current study was also evaluated with a Computer Aided Detection (CAD) system. No significant masses, calcifications, or other findings are seen in either breast. There has been no significant interval change. IMPRESSION: NEGATIVE There is no mammographic evidence of malignancy. A 1 year screening mammogram is recommended. This exam was interpreted at Station ID: [id number]. NOTE: For mammograms, a report in lay terms will be sent to the patient. Approximately 15% of breast malignancies will not be visualized mammographically. In the management of a palpable breast mass, a negative mammogram must not discourage biopsy of a clinically suspicious lesion. Electronically Signed By: Sean cates/sarah:01/05/2020 11:50:14 letter sent: Normal Exam ACR BI-RADS Category 1: Negative [id number]
== END ==
PROVIDERS: PCP Family Medicine; Referring Provider Family Medicine; Visit Provider Family Medicine
DX: Z12.31 Encounter for screening mammogram for malignant neoplasm of breast (principal)
CPT/HCPCS: 77063; 77067

== ENCOUNTER → 2020-01-13 10:14 | Outpatient (CLI) | payer MEDICARE, MEDICAID, SELFPAY ==
[2020-01-13 11:17] LABS: Hemoglobin A1C% w Est Avg Glu 7.4 % (4.0-6.0)
== END ==
PROVIDERS: PCP Family Medicine; Referring Provider Family Medicine; Visit Provider Family Medicine
DX: E11.65 Type 2 diabetes mellitus with hyperglycemia (principal)
CPT/HCPCS: 36415; 83036

== ENCOUNTER 2020-01-19 15:56 | Emergency (ER) | payer MEDICARE, MEDICAID, SELFPAY ==
[2020-01-19 16:00] VITALS: BP 134/70; PULSE 66; RESP 16; TEMP 36.4; O2SAT 96; BMI 40.9
--- NOTE | 2020-01-19 16:33 | DI.CT.S_ITS ---
PROCEDURE: CT CERVICAL SPINE WO CON INDICATIONS: fall TECHNIQUE: Noncontrast 3 mm thick sections acquired from the skull base to the T4 level. Sagittal and coronal reformats were then constructed. For radiation dose reduction, the following was used: automated exposure control, adjustment of mA and/or kV according to patient size. COMPARISON: [facility], CT, CT CERVICAL SPINE WO CON, 03/24/2019, 15:06. FINDINGS: Image quality: Excellent. Bones: No fractures or dislocations. Visualized superior ribs are intact. C5-C6 ACDF which appears grossly intact. Straightening of the normal lordotic curvature. Multilevel degenerative endplate sclerosis and spurring. Diffuse facet arthropathy. Soft tissues: Prevertebral soft tissues are normal in thickness. No paravertebral hematomas. No apical pneumothoraces. IMPRESSION: No fracture. Cervical spondylosis and facet arthropathy Dictated by: Kieran Shields M.D. on 01/19/2020 at 17:11 Approved by: Kieran Shields M.D. on 01/19/2020 at 17:14
--- NOTE | 2020-01-19 16:33 | DI.CT.S_ITS ---
PROCEDURE: CT HEAD/BRAIN WO CON INDICATIONS: fall TECHNIQUE: Noncontrast 4.5 mm thick angled axial sections acquired from the foramen magnum to the vertex, with coronal and sagittal reformats. For radiation dose reduction, the following was used: automated exposure control, adjustment of mA and/or kV according to patient size. COMPARISON: [facility], CT, CT HEAD/BRAIN WO CON, 07/09/2019, 14:45. FINDINGS: Image quality: Excellent. CSF spaces: Basal cisterns are patent. No extra-axial fluid collections. The ventricles are symmetric in size and shape. Brain: No intracranial bleeds or masses. There is cerebral volume loss for age, with resultant ventricular and sulcal prominence. There are periventricular and deep white matter chronic small vessel ischemic changes. There is intracranial internal carotid artery atherosclerosis. Skull and face: Calvarium and visualized facial bones appear intact, without suspicious lesions. Sinuses: Visualized sinuses and mastoids are clear. IMPRESSION: No acute intracranial process. Dictated by: Kieran Shields M.D. on 01/19/2020 at 17:09 Approved by: Kieran Shields M.D. on 01/19/2020 at 17:11
--- NOTE | 2020-01-19 16:33 | DI.RAD.S_ITS ---
PROCEDURE: XR SHOULDER LT MIN 2V INDICATIONS: fall TECHNIQUE: 3 views of the shoulder were acquired. COMPARISON: [facility], , SHOULDER MINIMUM 2 VIEW LEFT, 10/12/2014, 16:02. FINDINGS: Bones: No fractures or dislocations. No suspicious bony lesions. Visualized ribs appear intact. Calcific tendinitis versus loose body. Severe osteoarthritis. Soft tissues: No suspicious soft tissue calcifications. IMPRESSION: No fracture identified severe osteoarthritis Dictated by: Kieran Shields M.D. on 01/19/2020 at 17:15 Approved by: Kieran Shields M.D. on 01/19/2020 at 17:16
--- NOTE | 2020-01-19 18:41 | DI.RAD.S_ITS ---
PROCEDURE: XR WRIST LT MIN 3V INDICATIONS: pain sp glf TECHNIQUE: 4 views of the wrist were acquired. COMPARISON: [facility], , WRIST MINIMUM 3 VIEWS RIGHT, 03/19/2008, 16:06. FINDINGS: Bones: No fractures or dislocations. No suspicious bony lesions. Soft tissues: No suspicious soft tissue calcifications. IMPRESSION: No fracture. If the patient's symptoms do not improve recommend followup radiographs in 10 days to assess for healing sclerosis/occult injury. Dictated by: Kieran Shields M.D. on 01/19/2020 at 19:04 Approved by: Kieran Shields M.D. on 01/19/2020 at 19:06
--- NOTE | 2020-01-19 18:41 | DI.RAD.S_ITS ---
PROCEDURE: XR HAND LT MIN 3V INDICATIONS: pain sp glf TECHNIQUE: 3 views of the hand(s) acquired. COMPARISON: [facility], , HAND 3V RIGHT, 03/19/2008, 16:06. FINDINGS: Bones: No fractures or dislocations. Carpal bones are normally aligned. No suspicious bony lesions. Diffuse carpal and interphalangeal osteoarthritis. Soft tissues: No suspicious soft tissue calcifications. IMPRESSION: No fracture. If the patient's symptoms do not improve recommend followup radiographs in 10 days to assess for healing sclerosis/occult injury. Dictated by: Kieran Shields M.D. on 01/19/2020 at 19:07 Approved by: Kieran Shields M.D. on 01/19/2020 at 19:09
[2020-01-19 19:40] VITALS: BP 136/72; PULSE 74; RESP 16; O2SAT 97
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
== END 2020-01-19 19:41 | disposition home or self-care (01) ==
PROVIDERS: Emergency Provider Nurse Practitioner Family; PCP Family Medicine
DX: S40.012A Contusion of left shoulder, initial encounter (principal); M25.532 Pain in left wrist; M79.642 Pain in left hand; S09.90XA Unspecified injury of head, initial encounter; M54.2 Cervicalgia; W18.30XA Fall on same level, unspecified, initial encounter
CPT/HCPCS: 70450; 72125; 73030; 73110; 73130; 99283; 99284

== ENCOUNTER → 2020-09-28 17:07 | Outpatient (CLI) | payer MEDICARE, MEDICAID, SELFPAY ==
[2020-09-28 17:40] LABS: Creatinine Urine Random 66.8 mg/dL
[2020-09-28 17:45] LABS: Microalbumi Creatinin Ratio Ur 37.4 ug/mg CR (<30); Microalbumin Urine Random 2.5 mg/dL (0-1.6)
[2020-09-28 17:47] LABS: Alanine Aminotransferase 31 IU/L (<35); Albumin 4.7 g/dL (3.5-5.0); Albumin Globulin Ratio 1.3 (1.0-2.8); Alkaline Phosphatase 125 U/L (38-126); Aspartate Aminotransferase 33 IU/L (14-36); BUN Creatinine Ratio 42.6 (6-22); Bilirubin Total 0.5 mg/dL (0.2-1.3); Blood Urea Nitrogen 26 mg/dL (7-17); Calcium 10.7 mg/dL (8.4-10.2); Carbon Dioxide 27 mmol/L (22-32); Chloride 101 mmol/L (98-107); Cholesterol 299 mg/dL (140-199); Estimated Glomerular Filt Rate > 60.0 mL/min (>60); Globulin 3.6 g/dL (1.7-4.1); Glucose 184 mg/dL (80-110); HDL Cholesterol 45 mg/dL (40-60); HEMOLYSIS < 15 (0-50); Hemoglobin A1C% w Est Avg Glu 6.8 % (4.0-6.0); Potassium 4.5 mmol/L (3.4-5.1); Sodium 138 mmol/L (137-145); Total Protein 8.3 g/dL (6.3-8.2); Triglycerides 495 mg/dL (35-150)
== END ==
PROVIDERS: PCP Family Medicine; Referring Provider Family Medicine; Visit Provider Family Medicine
DX: E11.65 Type 2 diabetes mellitus with hyperglycemia (principal)
CPT/HCPCS: 36415; 80053; 80061; 82043; 82570; 83036

== ENCOUNTER → 2021-02-07 10:18 | Outpatient (CLI) | payer MEDICARE, MEDICAID, SELFPAY ==
[2021-02-07 19:35] LABS: Alanine Aminotransferase 26 IU/L (<35); Albumin 3.9 g/dL (3.5-5.0); Albumin Globulin Ratio 1.3 (1.0-2.8); Alkaline Phosphatase 121 U/L (38-126); Aspartate Aminotransferase 36 IU/L (14-36); Bilirubin Total 0.5 mg/dL (0.2-1.3); Blood Urea Nitrogen 16 mg/dL (7-17); Carbon Dioxide 28 mmol/L (22-32); Chloride 101 mmol/L (98-107); Estimated Glomerular Filt Rate > 60.0 mL/min (>60); Glucose 245 mg/dL (80-110); HEMOLYSIS < 15 (0-50); Potassium 4.6 mmol/L (3.4-5.1); Sodium 137 mmol/L (137-145); Total Protein 6.9 g/dL (6.3-8.2)
[2021-02-08 08:13] LABS: Creatinine Urine Random 55.8 mg/dL
[2021-02-08 08:18] LABS: Microalbumi Creatinin Ratio Ur 39.4 ug/mg CR (<30); Microalbumin Urine Random 2.2 mg/dL (0-1.6)
== END ==
PROVIDERS: PCP Family Medicine; Referring Provider Family Medicine; Visit Provider Family Medicine
DX: I10 Essential (primary) hypertension (principal); Z51.81 Encounter for therapeutic drug level monitoring
CPT/HCPCS: 80053; 82043; 82570

== ENCOUNTER → 2021-02-14 10:18 | Outpatient (CLI) | payer MEDICARE, MEDICAID, SELFPAY ==
[2021-02-14 19:27] LABS: Appearance Urine UA CLEAR; Bilirubin Urine UA NEGATIVE (NEGATIVE); Color Urine UA YELLOW; Glucose Urine UA 3+ g/dL (Negative); Ketones Urine UA NEGATIVE (NEGATIVE); Leukocyte Esterase Urine UA NEGATIVE (NEGATIVE); Nitrite Urine UA NEGATIVE (Negative); Occult Blood Urine UA 1+ (Negative); Protein Urine UA NEGATIVE (Negative); Urobilinogen Urine UA 0.2 E.U./dL (0.2)
[2021-02-14 19:54] LABS: pH Urine UA 5.5 (4.5-8.0)
[2021-02-14 20:00] LABS: Amorphous Sediment Urine 1+; RBC Urine 1-5/HPF (0-5/HPF); Squamous Epithelial Cell Urine 1-5 /HPF (0-5/HPF); WBC Urine 1-5/HPF (0-5/HPF)
[2021-02-14 20:01] LABS: Bacteria Urine Occasional (0-1); Culture Indicated Urine Specimen Cultured
== END ==
PROVIDERS: PCP Family Medicine; Visit Provider Family Medicine
DX: R32 Unspecified urinary incontinence (principal); E11.65 Type 2 diabetes mellitus with hyperglycemia
CPT/HCPCS: 81001; 83036; 87086

== ENCOUNTER → 2021-05-14 11:07 | Outpatient (CLI) | payer MEDICARE, MEDICAID, SELFPAY ==
[2021-05-15 15:24] LABS: Hemoglobin A1C% w Est Avg Glu 7.1 % (4.0-6.0)
[2021-05-15 15:50] LABS: TSH w/ Reflex to FT4 1.89 uIU/mL (0.47-4.68)
[2021-05-15 17:06] LABS: Cholesterol 302 mg/dL (140-199); HDL Cholesterol 43 mg/dL (40-60); Triglycerides 401 mg/dL (35-150)
== END ==
PROVIDERS: PCP Family Medicine; Visit Provider Physician Assistant
DX: E11.65 Type 2 diabetes mellitus with hyperglycemia (principal)
CPT/HCPCS: 80061; 83036; 84443

== ENCOUNTER → 2021-06-07 11:18 | Outpatient (CLI) | payer MEDICARE, MEDICAID, SELFPAY ==
[2021-06-07 19:47] LABS: Add Manual Diff / Slide Review NO; Basophils Absolute Auto 100 /uL (0-100); Eosinophils Absolute Auto 200 /uL (0-450); Eosinophils Percent Auto 2.2 % (2-4); Hematocrit 45.1 % (36-46); Hemoglobin 15.3 g/dL (12.0-16.0); Lymphocytes Absolute Auto 3400 /uL (1100-4500); Lymphocytes Percent Auto 31.4 % (25-40); Mean Corpuscular HGB Conc 33.9 % (30-36); Mean Corpuscular Hemoglobin 33.5 PG (26-34); Mean Corpuscular Volume 98.9 fL (80-100); Monocytes Absolute Auto 700 /uL (0-900); Monocytes Percent Auto 6.2 % (3-14); Neutrophils Absolute Auto 6300 /uL (1500-7000); Neutrophils Percent Auto 59.2 % (50-75); Platelet Count 217 X10^3/uL (150-400); Red Blood Cell Count 4.56 X10^6/uL (4.0-5.2); Red Cell Distribution Width 14.3 % (11.6-14.8); White Blood Cell Count 10.7 X10^3/uL (4.5-11.0)
[2021-06-07 20:03] LABS: Alanine Aminotransferase 31 IU/L (<35); Albumin Globulin Ratio 1.2 (1.0-2.8); Alkaline Phosphatase 109 U/L (38-126); Aspartate Aminotransferase 32 IU/L (14-36); BUN Creatinine Ratio 25.6 (6-22); Bilirubin Total 0.6 mg/dL (0.2-1.3); Blood Urea Nitrogen 11 mg/dL (7-17); Calcium 10.1 mg/dL (8.4-10.2); Carbon Dioxide 34 mmol/L (22-32); Chloride 100 mmol/L (98-107); Cholesterol 279 mg/dL (140-199); Estimated Glomerular Filt Rate > 60.0 mL/min (>60); Globulin 3.3 g/dL (1.7-4.1); Glucose 177 mg/dL (80-110); HDL Cholesterol 47 mg/dL (40-60); HEMOLYSIS < 15 (0-50); LDL Cholesterol Calculated 167 mg/dL (<100); Potassium 4.4 mmol/L (3.4-5.1); Sodium 139 mmol/L (137-145); Total Protein 7.3 g/dL (6.3-8.2); Triglycerides 326 mg/dL (35-150)
== END ==
PROVIDERS: PCP Family Medicine; Visit Provider Physician Assistant
DX: E11.65 Type 2 diabetes mellitus with hyperglycemia (principal); E78.2 Mixed hyperlipidemia; R94.4 Abnormal results of kidney function studies
CPT/HCPCS: 80053; 80061; 85025

== ENCOUNTER 2021-08-06 15:26 | Emergency (ER) | payer MEDICARE, MEDICAID, SELFPAY ==
[2021-08-06] VITALS (8 sets, daily range): BP systolic 122–151; BP diastolic 54–83; PULSE 62–81; RESP 18–21; TEMP 36.6; O2SAT 89–97; BMI 44.2
--- NOTE | 2021-08-06 16:25 | DI.RAD.S_ITS ---
PROCEDURE: XR CHEST 1V INDICATIONS: suspected sepsis TECHNIQUE: One view of the chest was acquired. COMPARISON: [facility], CR, XR CHEST 1V, 11/15/2018, 18:53. FINDINGS: Surgical changes and devices: Fusion hardware in visualized lower cervical spine is seen. Lungs and pleura: Lungs are clear. No pleural effusions or pneumothorax. Mediastinum: Tortuous is seen. thoracic aorta Heart size is enlarged. Bones and chest wall: Moderate to severe dextroscoliosis of thoracolumbar spine is seen unchanged from prior study. No suspicious bony lesions. Overlying soft tissues appear unremarkable. IMPRESSION: No acute cardiopulmonary pathology. Dictated by: Devon Walls M.D. on 08/06/2021 at 17:21 Approved by: Devon Walls M.D. on 08/06/2021 at 17:22
[2021-08-06 17:11] LABS: Add Manual Diff / Slide Review NO; Basophils Absolute Auto 100 /uL (0-100); Basophils Percent Auto 1.4 % (0-2); Eosinophils Absolute Auto 200 /uL (0-450); Eosinophils Percent Auto 1.7 % (2-4); Hematocrit 36.1 % (36-46); Hemoglobin 12.2 g/dL (12.0-16.0); Lymphocytes Absolute Auto 1900 /uL (1100-4500); Mean Corpuscular HGB Conc 33.8 % (30-36); Mean Corpuscular Hemoglobin 33.1 PG (26-34); Mean Corpuscular Volume 97.9 fL (80-100); Monocytes Absolute Auto 800 /uL (0-900); Monocytes Percent Auto 8.1 % (3-14); Neutrophils Absolute Auto 7400 /uL (1500-7000); Neutrophils Percent Auto 70.8 % (50-75); Platelet Count 277 X10^3/uL (150-400); Red Blood Cell Count 3.69 X10^6/uL (4.0-5.2); Red Cell Distribution Width 14.2 % (11.6-14.8); White Blood Cell Count 10.4 X10^3/uL (4.5-11.0)
--- NOTE | 2021-08-06 17:12 | PC.NURSE ---
Patient presents to the ED with c/o left foot pain while walking with open sore on underside of foot. Foot is swollen and red with 2+ non pitting edema, warm to the touch from the foot to midway up the calf. Foot Wound is approximately 2 cm across, with slough in the middle of the wound bed and odiferous wound. Secondary wound approximately 0.5cm across approximately 3cm posterior of the main wound. The foot is swollen and bottom of foot is tender with palpation. There is skin loosely hanging off the bottom of the foot. Patient states that she had a blister on her foot when she left a previous hospital on 08/01/21, and that it has since opened. Some drainage is noted from her bandage wrap.
[2021-08-06 17:22] LABS: Lactate (Lactic Acid) 0.8 mmol/L (0.7-2.1)
[2021-08-06 17:25] LABS: Alanine Aminotransferase 25 IU/L (<35); Albumin 3.8 g/dL (3.5-5.0); Albumin Globulin Ratio 0.9 (1.0-2.8); Alkaline Phosphatase 84 U/L (38-126); Aspartate Aminotransferase 39 IU/L (14-36); BUN Creatinine Ratio 22.9 (6-22); Bilirubin Total 0.7 mg/dL (0.2-1.3); Blood Urea Nitrogen 11 mg/dL (7-17); Carbon Dioxide 35 mmol/L (22-32); Chloride 96 mmol/L (98-107); Estimated Glomerular Filt Rate > 60.0 mL/min (>60); Globulin 4.1 g/dL (1.7-4.1); Glucose 191 mg/dL (80-110); HEMOLYSIS < 15 (0-50); Lipase 12 U/L (23-300); Potassium 4.3 mmol/L (3.4-5.1); Sodium 136 mmol/L (137-145); Total Protein 7.9 g/dL (6.3-8.2)
[2021-08-06 17:39] LABS: Procalcitonin 0.06 ng/mL (<0.5)
[2021-08-06] MEDS: SODIUM CHLORIDE 0.9% 1,000 ML 1000 ML IV (17:58)
--- NOTE | 2021-08-06 18:37 | PC.NURSE ---
Wound care: Patient is unreliable historian, was unable to relate what caused the wound. Wound etiology is unclear. Reports that wound was initially blister on 08/01/21. Arrived with foot cast on over dressing. Removed foot cast to find wound covered with a chux pad. Removed chux pad, wound was loosely wrapped with a gauze wrap and 2x2 gauze over site of wound. Wound had saturated through dressings, and was malodorous. Disposed of gauze, cleansed foot with betacept and a soft scrub brush to remove dried blood and drainage. Excess skin flap was trimmed off around the wound and dried blood and drainage was further cleansed and removed. Removed small pieces of dirt from wound bed. Rinsed foot with saline wash. Patient tolerated procedure well and denied having pain with wound care.
--- NOTE | 2021-08-06 18:48 | PC.NURSE ---
Addendum entered by Aurelio Alfaro 08/06/21 19:05: In addition to I/O catheter note, minimal urine obtained, estimate 2 mL obtained. Sample sent to lab. Original Note: In and out catheter: Patient was unable to void today, performed in and out catheter to obtain urine sample. Patient tolerated procedure well. Provided Tegan-care following catheter procedure, applied new pull up brief. Patient resting comfortably in bed.
--- NOTE | 2021-08-06 18:51 | DI.RAD.S_ITS ---
PROCEDURE: XR FOOT LT 2V INDICATIONS: infection TECHNIQUE: 2 views of the foot were acquired. COMPARISON: [facility], CR, XR FOOT LT MIN 3V, 12/25/2018, 2:59. FINDINGS: Bones: Extensive fusion of midfoot and hindfoot are again seen. Previously described fractured long fixation screw and fixation plate in midfoot are again seen. No acute fracture or dislocation. No suspicious bony lesions. No gross bony erosive changes are seen. Osteoarthritic changes are noted throughout forefoot joints. Soft tissues: Shallow ulceration involving plantar aspect of midfoot is seen. No tibiotalar joint effusion. Achilles tendon appears normal. IMPRESSION: Ulceration over plantar aspect of midfoot with soft tissue swelling. No radiographic evidence of osteomyelitis. No acute fracture or dislocation. Stable appearance of midfoot and hindfoot fusion hardware with fractured hardware is unchanged from prior study. Dictated by: Devon Walls M.D. on 08/06/2021 at 19:46 Approved by: Devon Walls M.D. on 08/06/2021 at 19:48
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
[2021-08-06 19:09] LABS: Appearance Urine UA CLEAR; Bilirubin Urine UA NEGATIVE (NEGATIVE); Color Urine UA YELLOW; Glucose Urine UA 3+ g/dL (Negative); Ketones Urine UA 2+ (NEGATIVE); Leukocyte Esterase Urine UA NEGATIVE (NEGATIVE); Nitrite Urine UA POSITIVE (Negative); Occult Blood Urine UA 3+ (Negative); Protein Urine UA NEGATIVE (Negative)
[2021-08-06 19:11] LABS: Amorphous Sediment Urine 1+; Bacteria Urine None Seen; Culture Indicated Urine Cult Not Indicated; RBC Urine 5-10/HPF (0-5/HPF); Squamous Epithelial Cell Urine 10-30 /HPF (0-5/HPF); WBC Urine 5-10/HPF (0-5/HPF)
[2021-08-06 19:13] LABS: COVID19 -Nasal RAPID Negative (Negative)
== END 2021-08-06 20:28 | disposition home or self-care (01) ==
PROVIDERS: Emergency Medicine; Emergency Provider Physician Assistant; PCP Physician Assistant
DX: L03.116 Cellulitis of left lower limb (principal); N39.0 Urinary tract infection, site not specified; B96.89 Other specified bacterial agents as the cause of diseases classified elsewhere; R03.0 Elevated blood-pressure reading, without diagnosis of hypertension; Z20.822 Contact with and (suspected) exposure to COVID-19
CPT/HCPCS: 36415; 71045; 73620; 80053; 81001; 83605; 83690; 84145; 85025; 87040; 87635; 93005; 93010; 96360; 96361; 99284; C9803

== ENCOUNTER → 2021-08-16 09:06 | Outpatient (CLI) | payer MEDICARE, MEDICAID, SELFPAY | PROVIDERS: PCP Physician Assistant; Visit Provider Physician Assistant | DX: N39.41 Urge incontinence (principal) | CPT/HCPCS: 87086 ==

== ENCOUNTER 2021-08-17 12:53 | Inpatient (IN) | payer MEDICARE, MEDICAID, SELFPAY ==
[2021-08-17] VITALS (15 sets, daily range): BP systolic 106–135; BP diastolic 48–68; PULSE 53–62; RESP 14–22; TEMP 36.7–37.1; O2SAT 90–99; BMI 42.1
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
--- NOTE | 2021-08-17 15:22 | DI.RAD.S_ITS ---
PROCEDURE: XR FOOT LT MIN 3V INDICATIONS: ulcer/wound on foot TECHNIQUE: 3 views of the foot were acquired. COMPARISON: [facility], CR, XR FOOT 3+ VIEWS LEFT, 01/12/2020, 15:09. [facility], CR, XR FOOT LT 2V, 08/06/2021, 19:17. FINDINGS: Bones: Extensive hindfoot postoperative change is seen. The lateral fusion plate is fractured, as can be seen on prior imaging. At least 2 of the screws are also fractured. Generalized degenerative changes are seen. No ingrid lytic process is seen by plain film. No periosteal reactions. Soft tissues: Soft tissue swelling is seen, which is improved compared to the 08/06/2021 examination. IMPRESSION: Soft tissue swelling is seen, which is improved compared to the prior. Extensive postoperative hardware. The lateral fusion plate is fractured. At least 2 of the screws are also fractured. No ingrid plain film findings of osteomyelitis can be seen. If there is strong clinical concern for osteomyelitis, please consider short-term follow-up. MRI could be performed, although it would be likely limited secondary to artifact from the hardware. Dictated by: Solomon Ramos M.D. on 08/17/2021 at 14:51 Approved by: Solomon Ramos M.D. on 08/17/2021 at 14:54
[2021-08-17 15:33] LABS: Add Manual Diff / Slide Review NO; Basophils Absolute Auto 100 /uL (0-100); Basophils Percent Auto 1.4 % (0-2); Eosinophils Absolute Auto 200 /uL (0-450); Eosinophils Percent Auto 1.8 % (2-4); Hematocrit 38.7 % (36-46); Hemoglobin 13.1 g/dL (12.0-16.0); Lymphocytes Absolute Auto 2500 /uL (1100-4500); Lymphocytes Percent Auto 26.8 % (25-40); Mean Corpuscular HGB Conc 33.9 % (30-36); Mean Corpuscular Hemoglobin 32.7 PG (26-34); Mean Corpuscular Volume 96.5 fL (80-100); Monocytes Absolute Auto 600 /uL (0-900); Neutrophils Absolute Auto 5800 /uL (1500-7000); Platelet Count 254 X10^3/uL (150-400); Red Cell Distribution Width 14.5 % (11.6-14.8); White Blood Cell Count 9.2 X10^3/uL (4.5-11.0)
[2021-08-17 15:45] LABS: BUN Creatinine Ratio 31.4 (6-22); Blood Urea Nitrogen 16 mg/dL (7-17); Calcium 10.1 mg/dL (8.4-10.2); Carbon Dioxide 34 mmol/L (22-32); Chloride 102 mmol/L (98-107); Estimated Glomerular Filt Rate > 60.0 mL/min (>60); Glucose 210 mg/dL (80-110); HEMOLYSIS < 15 (0-50); Potassium 4.7 mmol/L (3.4-5.1); Sodium 138 mmol/L (137-145)
[2021-08-17 15:49] LABS: C-Reactive Protein Quant 1.3 mg/dL (<1.0)
[2021-08-17 15:56] LABS: Erythrocyte Sedimentation Rate 23 MM/HR (0-20)
[2021-08-17] MEDS: cefTRIAXone 2,000 MG in SODIUM CHLORIDE 0.9% 100 ML 200 ML IV (15:59)
[2021-08-17] MEDS: GABAPENTIN 600 MG TABLET PO ×2 (16:04→23:12)
[2021-08-17] MEDS: OXYCODONE IR 5 MG TABLET PO ×2 (16:05→21:57)
[2021-08-17] MEDS: VANCOMYCIN 1,500 MG/300 ML PIGGYBACK 200 MG IV (16:42)
[2021-08-17 17:08] LABS: COVID19 -Nasal RAPID Negative (Negative)
--- NOTE | 2021-08-17 18:24 | DI.MRI.S_ITS ---
PROCEDURE: MRFOOT LT WO CON INDICATIONS: osteomyelitis? abscess? TECHNIQUE: Noncontrast sagittal T1 spin echo and T2 fast spin echo with fat saturation, long-axis T1 spin echo and T2 fast spin echo with fat saturation, short-axis T1 spin echo and T2 fast spin echo with fat saturation through the forefoot. COMPARISON: [facility], CR, XR FOOT LT MIN 3V, 08/17/2021, 15:34. FINDINGS: Image quality: There is artifact associated with the metallic hardware. Soft tissues: Along the plantar aspect of the foot, there is a focal fluid collection seen that measures approximately 2.2 cm, with surrounding inflammatory change. Generalized soft tissue swelling and inflammatory change can be seen. Bones and joints: Throughout the hindfoot, there is extensive postoperative hardware, with associated susceptibility artifact, which limits evaluation. To the limits of this study, no ingrid osteomyelitis is identified. Age-appropriate bony degenerative changes are seen. IMPRESSION: 2.2 cm plantar fluid collection seen which is moderately suspicious for abscess. No findings of osteomyelitis are seen, although the bony hardware highly limits evaluation for such throughout the hindfoot. If it would be helpful for clinical management decision making in this patient with this given history, please consider a dedicated CT of the foot for further evaluation. Dictated by: Solomon Ramos M.D. on 08/18/2021 at 10:57 Approved by: Solomon Ramos M.D. on 08/18/2021 at 11:00
[2021-08-17 19:53] LABS: Lactate (Lactic Acid) 1.7 mmol/L (0.7-2.1)
[2021-08-17] MEDS: MEROPENEM 1 GM in SODIUM CHLORIDE 0.9% 100 ML 200 ML IV (19:58)
[2021-08-17 20:13] LABS: Procalcitonin 0.04 ng/mL (<0.5)
[2021-08-17] MEDS: INSULIN LISPRO 100 UNIT/ML 3ML VIAL SUBCUT (22:01)
[2021-08-17] MEDS: MELATONIN 3 MG TABLET 6 MG PO (23:12)
[2021-08-18] VITALS (8 sets, daily range): BP systolic 109–140; BP diastolic 49–65; PULSE 55–68; RESP 16–19; TEMP 36.3–37; O2SAT 94–97
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
[2021-08-18] MEDS: MEROPENEM 1 GM in SODIUM CHLORIDE 0.9% 100 ML 200 ML IV ×3 (02:07→18:19)
[2021-08-18 05:40] LABS: BUN Creatinine Ratio 34.7 (6-22); Blood Urea Nitrogen 17 mg/dL (7-17); Calcium 9.7 mg/dL (8.4-10.2); Carbon Dioxide 36 mmol/L (22-32); Chloride 102 mmol/L (98-107); Estimated Glomerular Filt Rate > 60.0 mL/min (>60); Glucose 192 mg/dL (80-110); HEMOLYSIS 27 (0-50); Potassium 4.2 mmol/L (3.4-5.1); Sodium 138 mmol/L (137-145)
[2021-08-18 05:46] LABS: Add Manual Diff / Slide Review NO; Basophils Absolute Auto 200 /uL (0-100); Basophils Percent Auto 1.8 % (0-2); Eosinophils Absolute Auto 200 /uL (0-450); Eosinophils Percent Auto 2.3 % (2-4); Hematocrit 37.1 % (36-46); Hemoglobin 12.4 g/dL (12.0-16.0); Lymphocytes Absolute Auto 2700 /uL (1100-4500); Lymphocytes Percent Auto 33.3 % (25-40); Mean Corpuscular HGB Conc 33.5 % (30-36); Mean Corpuscular Hemoglobin 32.7 PG (26-34); Mean Corpuscular Volume 97.6 fL (80-100); Monocytes Absolute Auto 600 /uL (0-900); Monocytes Percent Auto 7.4 % (3-14); Neutrophils Absolute Auto 4500 /uL (1500-7000); Neutrophils Percent Auto 55.2 % (50-75); Platelet Count 223 X10^3/uL (150-400); Red Cell Distribution Width 14.7 % (11.6-14.8); White Blood Cell Count 8.2 X10^3/uL (4.5-11.0)
--- NOTE | 2021-08-18 06:22 | PC.NURSE ---
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
[2021-08-18] MEDS: ENOXAPARIN 40 MG/0.4 ML SYRINGE SUBCUT ×2 (08:31→21:13)
[2021-08-18] MEDS: atenoloL 25 MG TABLET PO (08:31)
[2021-08-18] MEDS: GABAPENTIN 300 MG CAPSULE 600 MG PO ×4 (08:31→21:12)
[2021-08-18] MEDS: VENLAFAXINE ER 75 MG CAP 150 MG PO ×2 (08:31→22:31)
[2021-08-18] MEDS: ASPIRIN EC 81 MG TABLET PO (08:31)
[2021-08-18] MEDS: VANCOMYCIN 1,500 MG/300 ML PIGGYBACK 200 MG IV ×2 (08:31→21:11)
[2021-08-18] MEDS: INSULIN LISPRO 100 UNIT/ML 3ML VIAL SUBCUT ×4 (08:41→21:13)
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
--- NOTE | 2021-08-18 12:21 | DI.CT.S_ITS ---
PROCEDURE: CT LE LT WO/W CON INDICATIONS: dm foot ulcer, abscess? osteomyelitis? TECHNIQUE: After the administration of intravenous contrast, 3 mm axial sections acquired of the left foot , with coronal and sagittal reformats. COMPARISON: [facility], CR, XR FOOT LT MIN 3V, 08/17/2021, 15:34. [facility], MR, MR FOOT LT WO CON, 08/18/2021, 10:27. FINDINGS: Image quality: Excellent. Bones: Postsurgical changes are seen from fixation of the midfoot and hindfoot with numerous metallic screws and 2 metal plates. Osseous bridging across the subtalar joint is noted and across the navicular-medial cuneiform articulation. The lateral metallic plate is fractured at its midportion. Two fractured metallic screws are seen extending from the medial cuneiform and navicular into the calcaneus. Chronic remodeling of the tibiotalar articulation is seen. Mild pes planus configuration is seen. No acute osseous fracture identified. Degenerative changes are seen throughout the interphalangeal joints of the toes and at the 1st metatarsophalangeal joint. No focal cortical destruction is seen. Soft tissues: Soft tissue ulcer is seen at the plantar lateral aspect of the midfoot with adjacent subcutaneous edema and enhancement to the level of the plantar fascia. A peripherally enhancing fluid collection is seen plantar to the calcaneocuboid articulation measuring approximately 3.5 x 1.3 x 1.8 cm, which is just posterior to the a of edema located at the level of the calcaneocuboid articulation. Diffuse severe fatty infiltration of the intrinsic foot musculature is seen, consistent with chronic denervation changes. There is moderate fatty infiltration of the lower leg musculature. The articular cartilages, ligaments, and tendons are not well evaluated with standard CT. IMPRESSION: 1. Soft tissue ulcer at the plantar lateral aspect of the midfoot with adjacent soft tissue edema and enhancement. 2. Peripherally enhancing fluid collection posterior to the soft tissue ulcer at the level of the calcaneocuboid joint measures 3.5 x 1.3 x 1.8 cm, corresponding to the abnormality seen on prior MRI. Differential considerations include abscess, involving hematoma, or adventitial bursal collection related to chronic repetitive pressure. 3. No focal cortical destruction is seen to suggest osteomyelitis on CT. 4. Postsurgical changes throughout the hindfoot and midfoot. A fractured metallic plate is seen at the calcaneocuboid articulation. Additional fractured screws are seen extending from the navicular to the calcaneus. 5. Diffuse severe fatty infiltration of the intrinsic foot musculature is consistent with chronic denervation changes. Dictated by: Jai Diamond M.D. on 08/18/2021 at 14:00 Approved by: Jai Diamond M.D. on 08/18/2021 at 14:12
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
[2021-08-18] MEDS: OXYCODONE IR 5 MG TABLET PO ×3 (12:27→21:22)
[2021-08-18] MEDS: ONDANSETRON 4 MG/2 ML INJ IV (13:24)
--- NOTE | 2021-08-18 13:41 | CM.DANOTE ---
Patient is a 66 yo female who was admitted on 08/17/21 for Infected Lt foot. Pt has [facility] and [facility] for insurance and her PCP is Priscilla Best on [facility]. EMR was reviewed. Per MD, pt with hx of neuropathy, AFIB, home oxygen and admitted for worsening cellulitis and ulcer of left heel and r/o osteomyelitis. Per MD and RN, pt seems to have poor self care and hx of recent surgery for Charcot of joints that failed due to pt fall after surgery. Per Ortho MD, no current need of surgical intervention at this time and ulcer of heel does not appear to be infected or spreading and will consult with Probation And Parole Officer Dr. Pearl and non-weight baring at this time. PT/OT ordered and pending. SW met bedside with pt and explained role and she confirms that she moved to [facility] around September last year 2020 to live near her family (son/BECKY Nava, his , and extended family) and pt is currently living with them and family has taken on the role of LANDY CG but family now has their own medical conditions they are managing and therefore pt's care is not as good or consistent as it could be. Pt confirms she qualifies for LANDY but cannot remember her LANDY CM name and states she is about to move into the [facility] to family but will have a different LANDY CG take on the hours to assist her outside of family members and she feels this will be better. Pt states she typically can ambulate with walker at baseline and uses oxygen at home but has been significantly reduced in her mobility with her heel ulcer and fall after surgery. SW inquired about her d/c plan and pt states she really does not want to have to go to SNF and preference would be to return home with family members and she would be agreeable to (SW discussed only [facility], [facility] services [facility]). SW discussed need to confirm she could safely ambulate for d/c home and pt acknowledges understanding. Pt also states she arrived to [facility] via being dropped off at [employer] [facility] with [employer] w/[employer] to board and then [facility] picked her up and brought her to the hospital and pt felt she was able to safely manage this with the [employer] w/c and transferring in and out of the taxi. SW made initial referral to [facility], [facility] while awaiting PT/OT eval and recommendations and will need to r/o HH vs SNF pending pt's progress. Plan: SW to follow closely after PT/OT eval and recommendations towards determining d/c home with family and new [facility] referral (F2F would be needed still) vs SNF pending progress. KAREN Gaspar Discharge Planning/Care Management CM Discharge Assessment Start: 08/18/21 13:39 Freq: Status: Active Protocol: Document 08/18/21 13:39 BF (Rec: 08/18/21 13:41 BF [id number]) Discharge Planning Assessment Assigned Art Therapist KAREN Dupont DPOA/Assigned Designee Name son Elijah Nowak Advance Directives? No Advance Directives on File No History Provided By Patient,Medical Record Has Patient been admitted in last 30 No days? Prior Living Arrangements House Household Members family Type of transporation used prior to Relies on Others admit Independent with ADL's No Is patient alert and oriented? Yes Needs Assistance With Meal Prep,Managing Medications ,Home Chores / Shopping Caregiver for Another No DME Already Rented / Owned FWW / Walker Patient/Family Preference Home with Home Health Comment HH vs SNF pending progress Barriers to Discharge No Discharge Plan Home with Home Health [place]ement [place] pending progress Referrals Initiated Home Health Additional Comment [facility] due to [facility] location Medicare Choice List Provided Yes Review Status In Process Please Provide Date Initial DC 08/18/21 Assessment Was Performed Next Review Type Continued Stay Review
[2021-08-18] MEDS: MELATONIN 3 MG TABLET 6 MG PO (21:12)
[2021-08-18] MEDS: NYSTATIN CREAM 30 GM 1 APPLIC TOP (21:19)
[2021-08-19] VITALS (19 sets, daily range): BP systolic 97–132; BP diastolic 47–80; PULSE 53–86; RESP 15–20; TEMP 36.1–37.8; O2SAT 94–98; BMI 42.1
[2021-08-19] MEDS: MEROPENEM 1 GM in SODIUM CHLORIDE 0.9% 100 ML 200 ML IV ×3 (02:16→19:40)
[2021-08-19] MEDS: OXYCODONE IR 5 MG TABLET PO ×5 (03:54→17:18)
[2021-08-19 05:56] LABS: Hematocrit 36.3 % (36-46); Hemoglobin 12.2 g/dL (12.0-16.0); Mean Corpuscular HGB Conc 33.6 % (30-36); Mean Corpuscular Hemoglobin 32.7 PG (26-34); Mean Corpuscular Volume 97.2 fL (80-100); Platelet Count 210 X10^3/uL (150-400); Red Blood Cell Count 3.74 X10^6/uL (4.0-5.2); Red Cell Distribution Width 14.8 % (11.6-14.8); White Blood Cell Count 6.6 X10^3/uL (4.5-11.0)
[2021-08-19 06:08] LABS: BUN Creatinine Ratio 40.9 (6-22); Blood Urea Nitrogen 18 mg/dL (7-17); Calcium 9.9 mg/dL (8.4-10.2); Carbon Dioxide 38 mmol/L (22-32); Chloride 101 mmol/L (98-107); Estimated Glomerular Filt Rate > 60.0 mL/min (>60); Glucose 202 mg/dL (80-110); HEMOLYSIS < 15 (0-50); Potassium 3.9 mmol/L (3.4-5.1); Sodium 138 mmol/L (137-145)
--- NOTE | 2021-08-19 07:25 | PC.NURSE ---
a/o, voices needs. SBA mobility, ADL assistance. c/o pain to left foot, has OA to bottom of foot. large calloused area that feels mushy underneath it all. NWB L foot. needs encouragement to follow ADA diet. numerous requests for snacks thru the NOC. IV abx, vanco trough this AM. tolerating ABX w/o issues. afebrile. VSS call light w/in reach.
--- NOTE | 2021-08-19 07:37 | PC.NURSE ---
0730: Pt NPO for possible surgical debridement per Dr Rodriguez
[2021-08-19] MEDS: VANCOMYCIN TROUGH 1 REQUEST MISC (07:45)
[2021-08-19] MEDS: VENLAFAXINE ER 75 MG CAP 150 MG PO ×2 (08:11→22:08)
[2021-08-19] MEDS: atenoloL 25 MG TABLET PO (08:11)
[2021-08-19] MEDS: INSULIN LISPRO 100 UNIT/ML 3ML VIAL SUBCUT ×3 (08:12→22:12)
[2021-08-19] MEDS: NYSTATIN CREAM 30 GM 1 APPLIC TOP ×2 (08:16→22:10)
[2021-08-19] MEDS: GABAPENTIN 300 MG CAPSULE 600 MG PO ×4 (08:17→22:08)
[2021-08-19 08:21] LABS: Vancomycin Trough 10.2 ug/mL (10-20)
[2021-08-19] MEDS: VANCOMYCIN 1,500 MG/300 ML PIGGYBACK 200 MG IV (08:50)
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
--- NOTE | 2021-08-19 12:59 | DIET.CONS ---
Dietary Consultation Note Admission Date: 08/19/2021 10:36 Assessment: 66y F c diabetes and hx charcot foot who underwent recent foot surgery admitted with odiferous L foot infection referred to nutrition for BMI 42.2. Pt lives on [facility] near family but does not have family assistance. Pt has caregivers but both are not currently working with her secondary to their own health issues. Per provider note on [place], pt unable to do own bandage changes, had bandages on foot x4d. Pt asked provider Rx metamucil as she cannot afford it OTC. Pt reports to RD $148/mo in EBT food benefits, no other money to supplement that budget at this time. Pt gets [facility] a few times per week delivered. Pt stated for the past 2w she has been in her bedroom eating mostly cheerios and Wasa crackers as she does not go to the kitchen, use the kitchen, feel safe around knives to cut fruit, nor able to open jars/containers (secondary to neuropathy). Pt reports she is currently driving. Pt seems to have reasonable DM management, current A1c 8.0 (ongoing foot infection), with hx A1c 6-7 range. Pt takes 20mg Jardiance daily. Pt unwilling to take insulin as it makes me feel different, I don't like myself. Pt reports over 2w, she has gone 12 hours at a time without eating because of current level of assistance and deconditioning. Ht: 160.02 cm Wt: 107.955 kg (-4.8% in 2w) BMI: 42.1 Last BM: 08/16/21 (08/17/21 17:57) MNA: 12 Charlie Score: 20 Diet: 08/19/21 09:04 NPO Diet Diet Modifications: NPO Type: NPO NOW for Procedure Nutrition Percent Meal Consumed 0% 08/19/21 08:00 Percent Meal Consumed 100% 08/18/21 18:00 Percent Meal Consumed 75% 08/18/21 14:30 Percent Meal Consumed 75% 08/18/21 08:30 Labs: RBC 3.74 X10^6/uL (4.0-5.2) L 08/19/21 05:05 Hgb 12.2 g/dL (12.0-16.0) 08/19/21 05:05 Hct 36.3 % (36-46) 08/19/21 05:05 Creatinine 0.44 mg/dL (0.52-1.04) L 08/19/21 05:05 Hemoglobin A1c 8.0 % (4.0-6.0) H 08/17/21 15:25 Lactate 1.7 mmol/L (0.7-2.1) 08/17/21 15:25 Nutrition Diagnosis: Severe Acute Malnutrition r/t food insecurity, inability to care for self, increased nutrient needs for healing aeb 4.8% unintentional weight loss in 2w, pt has $148/mo food budget, impaired wound healing requiring hospital admission, pt morbidly obese putting at higher risk of deconditioning and poor outcomes. Interventions: 1. Collaborated c pt on DM friendly high PRO foods to have in bedroom including Lopez peanut butter, tetrapak low fat milk, ONS products like Ensure Max, Glucerna, or Osbaldo, or Ensure Original if only option provided by M[facility] ensuring following carb reccs. 2. Recc ONS Osbaldo bid while hospitalized to help provide nutrients for healing to foot wound. 3. Discussion c pt on need for higher level of self-care if continuing to live on [facility]. Pt agrees and feels barrier is getting caregiver and appropriate footware for walking. EER: 45g CHO/meal, 110g PRO (1.1g/kg), 2,000kcals (18kcal/kg) Monitoring/Evaluations: ONS tolerance, POC, POs. Electronically Signed by: Ramona Kline 08/19/21 12:59 Clinical Dietitian [address] [address]
[2021-08-19 13:37] LABS: Vancomycin Peak 21.3 ug/mL (20-40)
[2021-08-19] MEDS: LACTATED RINGERS 1,000 ML 42 ML IV (14:49)
--- NOTE | 2021-08-19 14:50 | PM.PREOP ---
Pre-operative Note COVID-19 COVID-19 status: Negative Criteria for continued procedure: Expected advancement of disease process, Possibility delay results in more complex future surgery or treatment, Continuing or worsening of significant or severe pain and Deterioration of the patient's condition or overall health Interval Note History & Physical reviewed/Exam performed by Physician: Yes Changes to H&P: No
--- NOTE | 2021-08-19 15:35 | SUR.HOLD ---
1505 late entry Activated pre-op orders from Dr. Rodriguez at 1443. Unable to pull PO meds from pyxis. Pharmacy notified without resolution. Continued to try to get meds including going to the pharmacy and talking with two pharmacists. Obtained meds but the patient had already been taken into the OR. Pt was awake, still on her bed. Dr. Rodriguez said for them to be given to the patient in PACU. [place] (pharmacist) notified.
--- NOTE | 2021-08-19 15:40 | SUR.OPER ---
Supine on padded OR bed, head on pillow, arms secured on padded arm boards at <90 degrees abduction, legs uncrossed, safety belt at abdomen, tape over blanket over lower right leg, left leg controlled by surgeon.
[2021-08-19] MEDS: BUPIVACAINE 0.25% W/ EPI 30 ML VIAL INJ (15:51)
--- NOTE | 2021-08-19 16:01 | P.OP_ITS ---
Operative Date/Time/Diagnoses Date of procedure: 08/19/21 Time of procedure: 15:15 Pre-op diagnosis: Left foot infection Post-op diagnosis: same Procedure & Clinicians Procedure: Irrigation debridement plantar aspect of the left foot Same procedure as scheduled: Yes Indications: Left foot infection Surgeon: Gomez Rodriguez Click Yes if Unassisted: Yes Anesthesia Type: General Operative Notes Findings: Very minimal signs of purulence. No sign of any large abscess formation. Some necrotic tissue around the ulcer on the plantar aspect of the foot. Closure Type: primary Specimen(s): other (Swab as well as soft tissue sent for cultures and sensitivities as well as Gram stain) Estimated Blood Loss (mL): 5 Tourniquet time (min): 17 Procedure in detail: On date of service, patient was met in the holding area where her operative site was signed and witnessed by the OR staff. Surgery is once again discussed with the patient any remaining questions or concerns she had were answered fully. Patient was taken to the operating theater and placed on the operating table in a supine position. Great care was taken to ensure that all bony prominences were appropriately padded. Well-padded tourniquet was placed up along the calf and a time-out was performed verifying patient's name procedure and operative site. The left leg was prepped and draped in the normal sterile fashion. The left leg was elevated for exsanguination and the tourniquet was turned up to 250 mmHg. Two separate swabs were placed into the ulcer track and sent for microbiology. Ten blade was used to excise out the ulcer on the plantar aspect of the foot. This incision was then extended both distally and proximally. Next a 15 blade was used to sharply excise the necrotic tissue around the ulcer site and this was then sent for cultures and sensitivities. Rongeur was used to remove more additional soft tissue throughout the exposed wound and this tissue was sent as well. Hemostat was used to bluntly dissect more posteriorly to make sure there was no pockets of purulence. This was also done both medially and laterally as well. Once we thoroughly debrided the wound bed, pulse lavage was used to irrigate the wound bed with 3 L of normal saline. Combination of the debridement and irrigation provided a clean wound bed with no sign of any residual infectious process. The wound was then packed and then loosely closed with nylon. The foot was then cleaned, dried, dressed patient was extubated taken to the PACU in stable condition. Complications: none Post-operative Condition: stable Disposition: Acute Care Plan for aftercare: Patient will need wound care consult. Patient will continue with her IV antib iotics. Patient need to follow-up with her previous surgeon who did her Charcot foot surgery when she is discharged from the hospital
[2021-08-19] MEDS: GABAPENTIN 300 MG CAPSULE PO (16:06)
[2021-08-19] MEDS: ACETAMINOPHEN 325 MG TABLET 650 MG PO (16:06)
[2021-08-19] MEDS: LACTATED RINGERS 1,000 ML 125 ML IV (16:57)
[2021-08-19] MEDS: HYDROMORPHONE 0.5 MG INJ 0.2 MG IV (16:57)
[2021-08-19] MEDS: VANCOMYCIN 1,250 MG/250 ML PIGGYBACK 250 MG IV (17:17)
[2021-08-19] MEDS: CHOLECALCIFEROL (VITAMIN D3) 1,000 UNIT TABLET 2000 UNIT PO (17:17)
[2021-08-19] MEDS: ENOXAPARIN 40 MG/0.4 ML SYRINGE SUBCUT (22:07)
[2021-08-19] MEDS: MAGNESIUM HYDROXIDE 30 ML UDC PO (22:08)
[2021-08-19] MEDS: MELATONIN 3 MG TABLET 6 MG PO (22:08)
[2021-08-19] MEDS: DOCUSATE 100 MG CAPSULE PO (22:08)
[2021-08-20] VITALS (8 sets, daily range): BP systolic 110–122; BP diastolic 47–58; PULSE 56–558; RESP 14–18; TEMP 36.2–36.7; O2SAT 94–98
[2021-08-20] MEDS: VANCOMYCIN 1,250 MG/250 ML PIGGYBACK 250 MG IV ×3 (01:13→16:50)
[2021-08-20] MEDS: MEROPENEM 1 GM in SODIUM CHLORIDE 0.9% 100 ML 200 ML IV ×3 (02:58→18:23)
[2021-08-20] MEDS: LACTATED RINGERS 1,000 ML 125 ML IV (02:58)
[2021-08-20] MEDS: OXYCODONE IR 5 MG TABLET PO ×5 (04:05→21:14)
[2021-08-20 05:54] LABS: Hematocrit 36.6 % (36-46); Hemoglobin 11.9 g/dL (12.0-16.0); Mean Corpuscular HGB Conc 32.4 % (30-36); Mean Corpuscular Hemoglobin 32.2 PG (26-34); Mean Corpuscular Volume 99.2 fL (80-100); Platelet Count 197 X10^3/uL (150-400); Red Blood Cell Count 3.69 X10^6/uL (4.0-5.2); Red Cell Distribution Width 14.7 % (11.6-14.8); White Blood Cell Count 7.1 X10^3/uL (4.5-11.0)
[2021-08-20 06:00] LABS: BUN Creatinine Ratio 39.5 (6-22); Blood Urea Nitrogen 17 mg/dL (7-17); Calcium 9.9 mg/dL (8.4-10.2); Carbon Dioxide 36 mmol/L (22-32); Chloride 102 mmol/L (98-107); Estimated Glomerular Filt Rate > 60.0 mL/min (>60); Glucose 184 mg/dL (80-110); HEMOLYSIS < 15 (0-50); Potassium 4.4 mmol/L (3.4-5.1); Sodium 138 mmol/L (137-145)
[2021-08-20] MEDS: ACETAMINOPHEN 325 MG TABLET 650 MG PO (08:29)
[2021-08-20] MEDS: GABAPENTIN 300 MG CAPSULE 600 MG PO ×4 (08:30→21:13)
[2021-08-20] MEDS: DOCUSATE 100 MG CAPSULE PO (08:30)
[2021-08-20] MEDS: ASPIRIN EC 81 MG TABLET PO (08:31)
[2021-08-20] MEDS: CHOLECALCIFEROL (VITAMIN D3) 1,000 UNIT TABLET 2000 UNIT PO (08:31)
[2021-08-20] MEDS: ENOXAPARIN 40 MG/0.4 ML SYRINGE SUBCUT ×2 (08:31→21:13)
[2021-08-20] MEDS: INSULIN LISPRO 100 UNIT/ML 3ML VIAL SUBCUT ×4 (08:44→21:25)
[2021-08-20] MEDS: atenoloL 25 MG TABLET PO (09:00)
[2021-08-20] MEDS: VENLAFAXINE ER 75 MG CAP 150 MG PO ×2 (09:00→21:19)
--- NOTE | 2021-08-20 09:59 | PHA.NOTE ---
Addendum entered by Marcela Whitman, Pharm.D 08/20/21 11:48: Pt's home medications were removed from pt drawer and delivered to pharmacy 08/19, prior to conversation today. Will continue to store in pharmacy until patient discharges per hospital policy. Original Note: Spoke with Roselia regarding her home medications and explained hospital policy is to store them in the pharmacy during her hospital stay. Pt expressed concern over getting meds back upon discharge and, therefore, does not want them stored in the pharmacy. Explained the pharmacy process of storing home medications and assured pt they would be delivered back to her before discharging, pt still refused. Home medications will be stored in the locked patient drawer during stay.
--- NOTE | 2021-08-20 11:05 | PT.IPTN ---
Current Diagnoses Type 2 diabetes mellitus with foot ulcer (08/19/21) Surgery Performed Operation Date: 08/19/21 15:00 Actual Procedures p I&D foot(Left) - Gomez Rodriguez MD Physical Therapy Treatment Note M2 PT-IP Current Condition Start: 08/18/21 15:05 Freq: NEEDED Status: Active Protocol: Document 08/19/21 10:20 AW (Rec: 08/19/21 11:00 AW [id number]) Physical Therapy Current Condition Current Condition Evaluation Date 08/19/21 Treatment Diagnosis infected left foot ulcer, scoliosis, chronic pain, impaired mobility/gait Onset Date 08/18/21 M3 PT-IP Subjective Start: 08/18/21 15:05 Freq: NEEDED Status: Active Protocol: Document 08/20/21 10:40 KS (Rec: 08/20/21 12:50 KS [id number]) Subjective Physical Therapy Visit Type Type Treatment Note Visit Start Time 10:40 Visit Stop Time 11:05 Total Visit Minutes 25 Number of RASPBERRY CHECKER Visits 1 Physical Therapy Visit Comments Patient Comments Pt agreeable to working w/ PT. Patient Goals Pt wanting to go to SNF for rehab M4 PT-IP Mobility and Gait Start: 08/18/21 15:05 Freq: NEEDED Status: Active Protocol: Document 08/20/21 10:40 KS (Rec: 08/20/21 12:50 KS [id number]) PT-Bed Mobility Assessment Supine to Sit Supine to Sit Minimal Assistance,1 Person Assistance,Head of Bed Elevated,Bedrails Scooting Scooting to Edge of Bed Contact Guard Assistance PT-Transfer Assessment Sit to and From Stand Sit to and from Stand Minimal Assistance,1 Person Assistance,Use of Upper Extremities Equipment Transfer Assistive Device Gait Belt,Front Wheeled Walker Orthotic/Prosthetic Devices or Brace: No Transfers Transfer Destination Chair Transfer Technique Pt ambulated w/ FWW Transfer Ability Level of Assist Minimal Assistance,1 Person Assistance,Use of Upper Extremities Comments Mobility Comments Pt in bed upon arrival and agreeable to transfer to chair . Min A for sup<>sit and CGA for scooting EOB. Pt aware of NWB LLE andadmits to poor balance prior. Min A and cues for sit<>stand w/ FWW. Pt ambulated ~5 ft from bed to chair w/ FWW while maintaining NWB LLE w/ Min A. She was unable to tolerate further ambulation due to weakness and fatigue. Poor control when sitting. Pt then performed 5 more sit<>stand from chair w/ FWW needing Min A and cues for hand placement and sequencing on all but last rep and needing CGA for stand, Min A for controlled sit. Pt reported fatigue and left in chair w/ OT on and all needs in reach. Gait Assessment Gait Gait Assistance Required: Minimum Assistance,1 Person Assist Distance (Feet) 5 Able to Maintain Weight Bearing Status Yes During Gait Assistive Devices Assistive Device Gait Belt,Front Wheeled Walker Orthotic/Prosthetic Devices or Brace: No Gait Deviations General Gait Pattern Antalgic,Decreased Stride Length,Decreased Feet Clearance Factors Limiting Gait Function Factors Limiting Gait Function Decreased Sensation,Poor Balance,Poor Safety Awareness Comments Gait Comments Pt ambulated ~5 ft w/ FWW NWB LLE w/ Min A and step by step cues for FWW management and sequencing. Stair Climbing Assessment Comments Stair Climbing Comments Not assessed. PT-Balance Assessment Sitting Balance and Reactions Static Sitting Balance Ability Good Dynamic Sitting Balance Ability Fair Standing Balance and Reactions Static Standing Balance Ability Fair Dynamic Standing Balance Ability Fair Device Used FWW M5 PT-IP Objective Assessments Start: 08/18/21 15:05 Freq: NEEDED Status: Active Protocol: Document 08/19/21 10:20 AW (Rec: 08/19/21 11:00 AW [id number]) Orientation Orientation/Cognition Level of Alertness Alert Orientation Name,Day of Week,Place, Situation Language Function Ability No Deficits Noted Safety Awareness Decreased Safety Awareness Gross Range of Motion Upper Extremity ROM Assessment Within Functional Limits Lower Extremity ROM Assessment Within Functional Limits Strength Lower Extremity Strength Assessment Within Functional Limits Hip 4+/5 all planes tested in sitting (except extension - not tested) Knee 5/5 ext and flex Ankle R 4+/5; L 4/5 Sensation Assessment Sensation Gross Sensation Right UE Impaired,Left UE Impaired,Right LE Impaired, Left LE Impaired Light Touch Impaired Proprioception (Position) Impaired Sensation Description Numbness Comments Sensation Comments Pt has numbness secondary to neuropathy in bilateral LE stocking distribution. Bilateral hands also affected. Muscle Tone Muscle Tone WNL Yes M6 PT-IP Treatment Start: 08/18/21 15:05 Freq: NEEDED Status: Active Protocol: Document 08/20/21 10:40 KS (Rec: 08/20/21 12:50 KS [id number]) Physical Therapy Treatment Education Education Provided Weight Bearing Status,Safety M7 PT-IP Assessment and Plan Start: 08/18/21 15:05 Freq: NEEDED Status: Active Protocol: Document 08/20/21 10:40 KS (Rec: 08/20/21 12:50 KS [id number]) PT Summary Assessment and Plan Potential Rehabilitation Potential Good Status of Condition at Evaluation Evolving Summary Impairments Pain,Balance,Sensation,Bed Mobility,Transfers,Gait Assessment Summary Pt very willing to work w/ therapy and eager to progress, but limited by low activity tolerance, weakness, NWB status, and poor balance. She required Min A and trapeze for sup<>sit, CGA for scooting, Min A for sit<>Stand, and min A for 5 ft ambulation w/ FWW. She required cues for hand placement, sequencing, and FWW use throughout treatment. She will require SNF to improve strength and functional mobility independence. Goals Bed Mobility Goal Independent Transfer Goal Independent,Front Wheeled Walker Gait Goal Independent,Front Wheel Walker Gait Distance 50 Days to Meet Goals 8 Frequency of Treatment Frequency Of Treatment Once a Day Treatment Plan Physical Therapy Treatment Plan Bed Mobility Training,Transfer Training,Gait Training, Therapeutic Exercise,Balance Retraining,Post Op Education, Discharge Planning,Hot or Cold Pack,Neuromuscular Re-ed Other Recommendations and Next Treatment assess for possible twice Focus daily treatment; reenforce WB status; transfers and gait with FWW Precautions Other Precautions falls Weight Bearing Status Weight Bearing Status Non-Weight Bearing Allowed Weight Bearing Amount (enter % NWB LLE or #) (%) Recommendations To Nursing Amount of Assist Needed 1 Person Assist Discharge Recommendations PT Discharge Recommendations SNF Rehab Equipment Needed for Home Before BSC Discharge Transportation Needs at Discharge Private Vehicle,Wheelchair/ Cabulance
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
--- NOTE | 2021-08-20 14:24 | OT.IP.TRT ---
Current Diagnoses Type 2 diabetes mellitus with foot ulcer (08/19/21) Surgery Performed Operation Date: 08/19/21 15:00 Actual Procedures p I&D foot(Left) - Gomez Rodriguez MD Occupational Therapy Treatment Note M2 OT-IP Current Condition Start: 08/19/21 13:48 Freq: Status: Active Protocol: Document 08/19/21 13:48 CGR (Rec: 08/19/21 14:02 CGR [id number]) Occupational Therapy Current Condition Current Condition Evaluation Date 08/19/21 Treatment Diagnosis L foot ulcer, UTI Diagnosis Onset Date 08/17/20 Weight Bearing Status Weight Bearing Status Non-Weight Bearing M3 OT- IP Subjective and Pain Start: 08/19/21 13:48 Freq: Status: Active Protocol: Document 08/20/21 13:45 CCC (Rec: 08/20/21 14:34 [facility] [id number]) OT- Subjective Occupational Therapy Visit Type Type Treatment Note Visit Start Time 13:45 Visit Stop Time 14:24 Total Visit Minutes 39 Occupational Therapy Visit Comments Patient Comments Pt sitting on the BSC when OT came to see pt. Patient/Caregiver Goals Pt now realizing would be best for her to go to skilled rehab to get stronger so able to do more for herself. Case management aware of pt's request for SNF. M4 OT- IP ADL's Start: 08/19/21 13:48 Freq: Status: Active Protocol: Document 08/20/21 13:45 CCC (Rec: 08/20/21 14:34 [facility] [id number]) OT [id number] Comments OT Self-Feeding Comments Not meal time OT ADL-Grooming Comments OT Grooming Comments Pt needing assist to help detangle her hair and not able to complete as had been sitting on the BSc for awhile and wanting to get back to bed. OT ADL-Dressing General Eval Lower Body Dressing Ability Maximum Assistance Areas Needing Assistance Underpants/Brief OT ADL-Toileting General Evaluation Toileting Ability Moderate Assistance Areas Needing Assistance Manage Clothing Comments OT Toileting Comments Assist to help pull up brief over her hips while pt trying to maintain NWB to LLE. M5 OT- IP IADL's Start: 08/19/21 13:48 Freq: Status: Active Protocol: Document 08/19/21 13:48 CGR (Rec: 08/19/21 14:02 CGR [id number]) OT-Instrumental Activities of Daily Living Deficits IADL Deficits Identified No Deficits Home Safety Awareness Awareness of Need for Assistance at Home Good Awareness Medication Management Medication Management Comments Concerns regarding pt's ability to perform Money Management Money Management Comments Concerns regarding pt's ability to perform Meal Preparation Meal Preparation Comments Concerns regarding pt's ability to perform Driving Driving Concerns Identified Regarding Safety Driving Comments 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 M7 OT- IP Mobility and Balance Start: 08/19/21 13:48 Freq: Status: Active Protocol: Document 08/20/21 13:45 [facility] (Rec: 08/20/21 14:34 [facility] [id number]) OT- Bed Mobility Assessment Sit to Supine Sit to Supine Assist Standby Assistance,Bedrails OT-Transfer Assessment Sit to and From Stand Sit to and from Stand Moderate Assistance Transfers Transfer Ability Moderate Assistance Technique Transfer Destination Bed,Bedside Commode,Chair Transfer Technique Stand Step Pivot Devices Transfer Assistive Devices Gait Belt,Front Wheeled Walker Comments Mobility Comments Pt having difficulty to maintain NWB to LLE and therefore had to have pt sit again and try again. Pt needing MODA to stand and guide FWW to the recliner and then to the bed. M8 OT- IP Objective Assessments Start: 08/19/21 13:48 Freq: Status: Active Protocol: Document 08/19/21 13:48 R (Rec: 08/19/21 14:02 [facility] [id number]) OT Gross Range of Motion Upper Extremity Range of Motion Assessment Within Functional Limits OT Strength Upper Extremity Strength Assessment Within Functional Limits Comments Strength Comments 4+ to 5/5 OT- Coordination Assessment Upper Extremity Finger to Nose Test Within Functional Limits Finger Tapping Test Within Functional Limits OT-Muscle Tone Assessment Muscle Tone WNL No OT Sensation Assessment Edema Edema Absent M9 OT- IP Assessment and Plan Start: 08/19/21 13:48 Freq: Status: Active Protocol: Document 08/20/21 13:45 [facility] (Rec: 02/22/22 14:34 CCC [id number]) OT Summary Assessment and Plan Potential Rehabilitation Potential Good Analytic Complexity at Evaluation Moderate Summary OT Impairments Balance,Functional Cognition, Functional Mobility,Grooming, Dressing,Toileting,Bathing, Toilet Transfers,Shower Transfers,Activity Tolerance Progress Towards Goals Slow Progress due to Activity Tolerance,Slow Progress due to Cognition Assessment Summary Pt would benefit from continued practice with LLE NWB for ADL and mobility needs. Pt now wanting to go to skilled rehab to get better prior to going home. Goals Grooming Goal Independent Dressing Goal Independent Toileting Goal Independent Bathing Goal Standby Assistance Toilet Transfer Goal Independent Shower Transfer Goal Standby Assistance Days to Meet Goals 19 Frequency of Treatment Frequency Of Treatment Once a Day Treatment Plan OT Treatment Plan ADL Training,Functional Cognition Training,Functional Mobility,Patient/Family Education,Discharge Planning Discharge Recommendations OT Discharge Recommendations SNF Rehab Transportation Needs at Discharge Wheelchair/Cabulance
[2021-08-20 17:29] LABS: Vancomycin Trough 14.8 ug/mL (10-20)
[2021-08-20 19:56] LABS: Vancomycin Peak 28.3 ug/mL (20-40)
[2021-08-20] MEDS: MELATONIN 3 MG TABLET 6 MG PO (21:11)
[2021-08-20] MEDS: VANCOMYCIN PEAK 1 REQUEST MISC (21:11)
[2021-08-21] VITALS (8 sets, daily range): BP systolic 102–126; BP diastolic 36–51; PULSE 57–67; RESP 18–20; TEMP 36.3–37.1; O2SAT 96–97
[2021-08-21] MEDS: VANCOMYCIN 1,250 MG/250 ML PIGGYBACK 250 MG IV (00:45)
[2021-08-21] MEDS: MEROPENEM 1 GM in SODIUM CHLORIDE 0.9% 100 ML 200 ML IV (02:16)
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
[2021-08-21] MEDS: GABAPENTIN 300 MG CAPSULE 600 MG PO ×4 (10:16→21:36)
[2021-08-21] MEDS: DOXYCYCLINE HYCLATE 100 MG TABLET PO ×2 (10:17→21:36)
[2021-08-21] MEDS: CHOLECALCIFEROL (VITAMIN D3) 1,000 UNIT TABLET 2000 UNIT PO (10:17)
[2021-08-21] MEDS: ENOXAPARIN 40 MG/0.4 ML SYRINGE SUBCUT ×2 (10:17→21:35)
[2021-08-21] MEDS: ASPIRIN EC 81 MG TABLET PO (10:17)
[2021-08-21] MEDS: OXYCODONE IR 5 MG TABLET PO ×2 (10:26→16:34)
[2021-08-21] MEDS: VENLAFAXINE ER 75 MG CAP 150 MG PO ×2 (10:26→21:36)
[2021-08-21] MEDS: atenoloL 25 MG TABLET PO (10:27)
[2021-08-21] MEDS: INSULIN LISPRO 100 UNIT/ML 3ML VIAL SUBCUT ×4 (10:28→21:34)
--- NOTE | 2021-08-21 10:47 | CM.DPNOTE ---
Addendum entered by Linda Null 08/21/21 13:25: Also emailed Catracho ROJAS and faxed Sandra Rios. Received fax conf. Linda Null CM Assist. Original Note: Per Darleen, Emailed snf referral to [facility] and [facility]; faxed to [facility]. Received conf. Linda Null CM Assist.
--- NOTE | 2021-08-21 11:12 | PT.IPTN ---
Current Diagnoses Type 2 diabetes mellitus with foot ulcer (08/19/21) Surgery Performed Operation Date: 08/19/21 15:00 Actual Procedures p I&D foot(Left) - Gomez Rodriguez MD Physical Therapy Treatment Note M2 PT-IP Current Condition Start: 08/18/21 15:05 Freq: NEEDED Status: Active Protocol: Document 08/19/21 10:20 AW (Rec: 08/19/21 11:00 AW [id number]) Physical Therapy Current Condition Current Condition Evaluation Date 08/19/21 Treatment Diagnosis infected left foot ulcer, scoliosis, chronic pain, impaired mobility/gait Onset Date 08/18/21 M3 PT-IP Subjective Start: 08/18/21 15:05 Freq: NEEDED Status: Active Protocol: Document 08/21/21 11:01 AW (Rec: 08/21/21 11:12 AW [id number]) Subjective Physical Therapy Visit Type Type Treatment Note Visit Start Time 10:40 Visit Stop Time 10:58 Total Visit Minutes 18 Physical Therapy Visit Comments Patient Comments Pt is upset that her chances of going to SNF will be affected by the fact that she is not vaccinated against COVID. Patient Goals Pt wanting to go to SNF for rehab but understands she may need to go home. Therapy Pain Assessment Pain When Pain Assessed During Mobility Pain Present Pain Present Denied Pain M4 PT-IP Mobility and Gait Start: 08/18/21 15:05 Freq: NEEDED Status: Active Protocol: Document 08/21/21 11:01 AW (Rec: 08/21/21 11:12 AW [id number]) PT-Bed Mobility Assessment Supine to Sit Supine to Sit Minimal Assistance,1 Person Assistance,Head of Bed Elevated,Bedrails Scooting Scooting to Edge of Bed Contact Guard Assistance PT-Transfer Assessment Sit to and From Stand Sit to and from Stand Minimal Assistance,1 Person Assistance,Use of Upper Extremities Equipment Transfer Assistive Device Gait Belt,Front Wheeled Walker Orthotic/Prosthetic Devices or Brace: No Transfers Transfer Destination Chair,Bedside Commode Transfer Technique Stand Step Pivot Transfer Ability Level of Assist Moderate Assistance Comments Mobility Comments Pt was lying in bed as PT arrived. She agreed to get up to BSC, using trapeze and min A for supine to sit with HOB elevated. She stood and pivot transferred to commode on her right side min A with poor elevation LLE in spite of cues . She sat with poor control. She completed all pericare setup/SBA and then stood to transfer to the chair set up on her right side with FWW min A. Descent, again, was poorly controlled. Pt feeling depressed and did not want to do any further activity. She was left in the recliner with legs elevated, call light and tray table in reach. Gait Assessment Gait Able to Maintain Weight Bearing Status No During Gait Assistive Devices Assistive Device Gait Belt,Front Wheeled Walker Orthotic/Prosthetic Devices or Brace: No Gait Deviations General Gait Pattern Antalgic,Decreased Stride Length,Decreased Feet Clearance Factors Limiting Gait Function Factors Limiting Gait Function Decreased Activity Tolerance, Decreased Sensation,Poor Balance,Poor Safety Awareness Comments Gait Comments Pt refused ambulation other than transfers today. During transfers, pt was not motivated to keep LLE off the floor and required max cues. PT-Balance Assessment Sitting Balance and Reactions Static Sitting Balance Ability Good Dynamic Sitting Balance Ability Fair Standing Balance and Reactions Static Standing Balance Ability Fair Dynamic Standing Balance Ability Poor Device Used FWW M5 PT-IP Objective Assessments Start: 08/18/21 15:05 Freq: NEEDED Status: Active Protocol: Document 08/19/21 10:20 AW (Rec: 08/19/21 11:00 AW [id number]) Orientation Orientation/Cognition Level of Alertness Alert Orientation Name,Day of Week,Place, Situation Language Function Ability No Deficits Noted Safety Awareness Decreased Safety Awareness Gross Range of Motion Upper Extremity ROM Assessment Within Functional Limits Lower Extremity ROM Assessment Within Functional Limits Strength Lower Extremity Strength Assessment Within Functional Limits Hip 4+/5 all planes tested in sitting (except extension - not tested) Knee 5/5 ext and flex Ankle R 4+/5; L 4/5 Sensation Assessment Sensation Gross Sensation Right UE Impaired,Left UE Impaired,Right LE Impaired, Left LE Impaired Light Touch Impaired Proprioception (Position) Impaired Sensation Description Numbness Comments Sensation Comments Pt has numbness secondary to neuropathy in bilateral LE stocking distribution. Bilateral hands also affected. Muscle Tone Muscle Tone WNL Yes M6 PT-IP Treatment Start: 08/18/21 15:05 Freq: NEEDED Status: Active Protocol: Document 08/21/21 11:01 AW (Rec: 08/21/21 11:12 AW [id number]) Physical Therapy Treatment Education Education Provided Weight Bearing Status,Safety M7 PT-IP Assessment and Plan Start: 08/18/21 15:05 Freq: NEEDED Status: Active Protocol: Document 08/21/21 11:01 AW (Rec: 08/21/21 11:12 AW [id number]) PT Summary Assessment and Plan Potential Rehabilitation Potential Good Status of Condition at Evaluation Evolving Summary Impairments Pain,ROM,Balance,Sensation,Bed Mobility,Transfers,Gait Progress Towards Goals Slow Progress due to Activity Tolerance,Slow Progress - Other Assessment Summary Pt presents with depressed affect today and less motivated to participate in therapy. She is concerned about her chances of being admitted to SNF due to her unvaccinated status. Min assist for bed mobility and pivot transfers today and pt requires constant cues for NWB LLE. She does not have necessary assist at home and is at risk for immobility and inappropriate weightbearing which would impede wound healing. She will require SNF to improve strength and functional mobility independence. Goals Bed Mobility Goal Independent Transfer Goal Independent,Front Wheeled Walker Gait Goal Independent,Front Wheel Walker Gait Distance 50 Days to Meet Goals 8 Frequency of Treatment Frequency Of Treatment Once a Day Treatment Plan Physical Therapy Treatment Plan Bed Mobility Training,Transfer Training,Gait Training, Therapeutic Exercise,Balance Retraining,Post Op Education, Discharge Planning,Hot or Cold Pack,Neuromuscular Re-ed Other Recommendations and Next Treatment reenforce WB status; transfers Focus and gait with FWW; ther ex for LE strength Precautions Other Precautions falls Weight Bearing Status Weight Bearing Status Non-Weight Bearing Allowed Weight Bearing Amount (enter % NWB LLE or #) (%) Recommendations To Nursing Amount of Assist Needed 1 Person Assist Discharge Recommendations PT Discharge Recommendations SNF Rehab Equipment Needed for Home Before BSC Discharge Transportation Needs at Discharge Private Vehicle,Wheelchair/ Cabulance
[2021-08-21] MEDS: HYDROMORPHONE 0.5 MG INJ 0.2 MG IV ×4 (11:59→21:36)
--- NOTE | 2021-08-21 12:34 | CM.DPNOTE ---
Addendum entered by KAREN Julian 08/21/21 15:19: ADD: [facility] 08.22[facility]21, updated patient and Dr Chino. J[facility] transport arranged for p/u tomorrow afternoon [id number] Patient agreeable to plan. Direct contact for [facility] is P# [phone] As of today, Uzma at [facility] does not need C19 PCR updated, patient's last test was 08.17.21; will confirm again that addtl. PCR is not needed tomorrow AM JW Original Note: DCP Note Attempting SNF placement. Patient is medically stable for DC, therapy team is concerned about patient's safety at home, Elin, PT records: She does not have necessary assist at home and is at risk for immobility and inappropriate weightbearing which would impede wound healing. No SNF secured thus far. Patient is unvaccinated against C19. [facility] declined, [facility] has declined. [facility] is reviewing. [facility] for [facility] Following closely. May need to broaden search. If no SNF secured patient will need to return home w/family assist and [facility] services JOYCELYN
[2021-08-21] MEDS: polyethylene glycoL 3350 17 GM POWD.PACK PO (13:09)
--- NOTE | 2021-08-21 15:17 | OT.IP.TRT ---
Current Diagnoses Type 2 diabetes mellitus with foot ulcer (08/19/21) Surgery Performed Operation Date: 08/19/21 15:00 Actual Procedures p I&D foot(Left) - Gomez Rodriguez MD Occupational Therapy Treatment Note M2 OT-IP Current Condition Start: 08/19/21 13:48 Freq: Status: Active Protocol: Document 08/19/21 13:48 CGR (Rec: 08/19/21 14:02 CGR [id number]) Occupational Therapy Current Condition Current Condition Evaluation Date 08/19/21 Treatment Diagnosis L foot ulcer, UTI Diagnosis Onset Date 08/17/20 Weight Bearing Status Weight Bearing Status Non-Weight Bearing M3 OT- IP Subjective and Pain Start: 08/19/21 13:48 Freq: Status: Active Protocol: Document 08/21/21 15:19 CCC (Rec: 08/21/21 15:26 CCC [id number]) OT- Subjective Occupational Therapy Visit Type Type Treatment Note Visit Start Time 15:02 Visit Stop Time 15:17 Total Visit Minutes 15 Occupational Therapy Visit Comments Patient Comments Pt agreed to work with OT. Patient/Caregiver Goals TO go to skilled rehab prior to going home. OT Pain Assessment Pain When Pain Assessed At Rest Pain Present Pain Present Pain Reported M5 OT- IP IADL's Start: 08/19/21 13:48 Freq: Status: Active Protocol: Document 08/19/21 13:48 CGR (Rec: 08/19/21 14:02 CGR [id number]) OT-Instrumental Activities of Daily Living Deficits IADL Deficits Identified No Deficits Home Safety Awareness Awareness of Need for Assistance at Home Good Awareness Medication Management Medication Management Comments Concerns regarding pt's ability to perform Money Management Money Management Comments Concerns regarding pt's ability to perform Meal Preparation Meal Preparation Comments Concerns regarding pt's ability to perform Driving Driving Concerns Identified Regarding Safety Driving Comments 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 CGA /MK to stand from high bed and assist to hold FWW in place. Pt able to stand for 35 sec, 35 sec, 70 sec , and then 50 seconds while maintaining LLE NWB status before having to sit down. Pt needing rest breaks in between each stands. Pt not wanting to use O2, therefore on RA from 88-93 %. OT- Balance Assessment Sitting Balance and Reactions Static Sitting Balance Ability Normal M8 OT- IP Objective Assessments Start: 08/19/21 13:48 Freq: Status: Active Protocol: Document 08/19/21 13:48 CGR (Rec: 08/19/21 14:02 CGR [id number]) OT Gross Range of Motion Upper Extremity Range of Motion Assessment Within Functional Limits OT Strength Upper Extremity Strength Assessment Within Functional Limits Comments Strength Comments 4+ to 5/5 OT- Coordination Assessment Upper Extremity Finger to Nose Test Within Functional Limits Finger Tapping Test Within Functional Limits OT-Muscle Tone Assessment Muscle Tone WNL No OT Sensation Assessment Edema Edema Absent M9 OT- IP Assessment and Plan Start: 08/19/21 13:48 Freq: Status: Active Protocol: Document 08/21/21 15:19 [facility] (Rec: 08/21/21 15:26 [facility] [id number]) OT Summary Assessment and Plan Potential Rehabilitation Potential Good Analytic Complexity at Evaluation Moderate Summary OT Impairments Balance,Functional Cognition, Functional Mobility,Grooming, Dressing,Toileting,Bathing, Toilet Transfers,Shower Transfers,Activity Tolerance Progress Towards Goals Progressing Toward Goals Assessment Summary Pt able to tolerate standing on RLE more today and ability to follow LLE NWB status. Pt looking to go to skilled rehab prior to going home as has unreliable assist at home and wanting to get stronger so not having to rely on her family to assist her when she gets home. Goals Grooming Goal Independent Dressing Goal Independent Toileting Goal Independent Bathing Goal Standby Assistance Toilet Transfer Goal Independent Shower Transfer Goal Standby Assistance Days to Meet Goals 18 Frequency of Treatment Frequency Of Treatment Once a Day Treatment Plan OT Treatment Plan ADL Training,Functional Cognition Training,Functional Mobility,Patient/Family Education,Discharge Planning Discharge Recommendations OT Discharge Recommendations SNF Rehab Transportation Needs at Discharge Wheelchair/Cabulance
--- NOTE | 2021-08-21 15:37 | PC.NURSE ---
Day Shift - Dressing change completed at 1530; abd pad had quarter sized serosanguinos drainage. 4x4 gauze was half way saturated w/ serosanguinos drainage. Stiches were in place and packing was left in place. orders for dressing changes needed prior to Pt D/C.
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
[2021-08-21] MEDS: DOCUSATE 100 MG CAPSULE PO (16:36)
[2021-08-22] MEDS: HYDROMORPHONE 0.5 MG INJ 0.2 MG IV (01:39)
[2021-08-22] MEDS: OXYCODONE IR 5 MG TABLET PO (02:22)
[2021-08-22] MEDS: OXYCODONE IR 10 MG TABLET PO ×2 (05:12→11:02)
[2021-08-22 06:00] VITALS: BP 126/52; PULSE 60; RESP 20; TEMP 35.9; O2SAT 97
[2021-08-22 07:00] VITALS: O2SAT 97
[2021-08-22 07:40] VITALS: BP 101/46; PULSE 62; RESP 18; TEMP 35.9; O2SAT 97
[2021-08-22] MEDS: INSULIN LISPRO 100 UNIT/ML 3ML VIAL SUBCUT ×2 (08:36→12:05)
[2021-08-22] MEDS: DOXYCYCLINE HYCLATE 100 MG TABLET PO (08:37)
[2021-08-22] MEDS: GABAPENTIN 300 MG CAPSULE 600 MG PO ×2 (08:37→13:06)
[2021-08-22] MEDS: polyethylene glycoL 3350 17 GM POWD.PACK PO (08:37)
[2021-08-22] MEDS: ENOXAPARIN 40 MG/0.4 ML SYRINGE SUBCUT (08:37)
[2021-08-22] MEDS: VENLAFAXINE ER 75 MG CAP 150 MG PO (08:37)
[2021-08-22] MEDS: CHOLECALCIFEROL (VITAMIN D3) 1,000 UNIT TABLET 2000 UNIT PO (08:37)
[2021-08-22] MEDS: ASPIRIN EC 81 MG TABLET PO (08:37)
[2021-08-22 10:05] VITALS: O2SAT 94
--- NOTE | 2021-08-22 10:34 | PT.IPTN ---
Current Diagnoses Type 2 diabetes mellitus with foot ulcer (08/19/21) Surgery Performed Operation Date: 08/19/21 15:00 Actual Procedures p I&D foot(Left) - Gomez Rodriguez MD Physical Therapy Treatment Note M2 PT-IP Current Condition Start: 08/18/21 15:05 Freq: NEEDED Status: Active Protocol: Document 08/19/21 10:20 AW (Rec: 08/19/21 11:00 AW [id number]) Physical Therapy Current Condition Current Condition Evaluation Date 08/19/21 Treatment Diagnosis infected left foot ulcer, scoliosis, chronic pain, impaired mobility/gait Onset Date 08/18/21 M3 PT-IP Subjective Start: 08/18/21 15:05 Freq: NEEDED Status: Active Protocol: Document 08/22/21 10:15 KS (Rec: 08/22/21 12:16 KS [id number]) Subjective Physical Therapy Visit Type Type Treatment Note Visit Start Time 10:15 Visit Stop Time 10:34 Total Visit Minutes 19 Number of NECKTIE CENTRALIZING MACHINE OPERATOR Visits 2 Therapy Pain Assessment Pain When Pain Assessed During Mobility Pain Present Pain Present Denied Pain M4 PT-IP Mobility and Gait Start: 08/18/21 15:05 Freq: NEEDED Status: Active Protocol: Document 08/22/21 10:15 KS (Rec: 08/22/21 12:16 KS [id number]) PT-Bed Mobility Assessment Supine to Sit Supine to Sit Minimal Assistance,1 Person Assistance,Head of Bed Elevated,Bedrails Scooting Scooting to Edge of Bed Contact Guard Assistance Scooting Up and Down in Bed Moderate Assistance PT-Transfer Assessment Sit to and From Stand Sit to and from Stand Minimal Assistance,1 Person Assistance,Use of Upper Extremities Equipment Transfer Assistive Device Gait Belt,Front Wheeled Walker Orthotic/Prosthetic Devices or Brace: No Transfers Transfer Destination Bed Transfer Technique Sit<>stand Transfer Ability Level of Assist Minimal Assistance,1 Person Assistance,Use of Upper Extremities Comments Mobility Comments Pt in bed and reporting fatigue but agreeable to practicing sit<>stands NWB. Min A for sup<>Sit w/ pt using trapeze. Min A for sit<>stand w/ FWW and cues for NWB LLE. Pt w/ difficulty keeping L foot completely off floor. Donned pt lift shoe on R side and pt w/ increased ability to maintain complete NWB LLE. She performed 3 sit<>stands, but refused ambulation. Pt Min A for sit<>sup and Mod A w/ cues for scooting up in bed. She will require SNF to improve strength and functional mobility and is unsafe to go home due to inability to maintain NWB LLE and transfer w/o assistance. Gait Assessment Comments Gait Comments Pt refused ambulation today due to weakness and fatigue. PT-Balance Assessment Sitting Balance and Reactions Static Sitting Balance Ability Good Dynamic Sitting Balance Ability Fair Standing Balance and Reactions Static Standing Balance Ability Fair Dynamic Standing Balance Ability Poor Device Used FWW M5 PT-IP Objective Assessments Start: 08/18/21 15:05 Freq: NEEDED Status: Active Protocol: Document 08/19/21 10:20 AW (Rec: 08/19/21 11:00 AW [id number]) Orientation Orientation/Cognition Level of Alertness Alert Orientation Name,Day of Week,Place, Situation Language Function Ability No Deficits Noted Safety Awareness Decreased Safety Awareness Gross Range of Motion Upper Extremity ROM Assessment Within Functional Limits Lower Extremity ROM Assessment Within Functional Limits Strength Lower Extremity Strength Assessment Within Functional Limits Hip 4+/5 all planes tested in sitting (except extension - not tested) Knee 5/5 ext and flex Ankle R 4+/5; L 4/5 Sensation Assessment Sensation Gross Sensation Right UE Impaired,Left UE Impaired,Right LE Impaired, Left LE Impaired Light Touch Impaired Proprioception (Position) Impaired Sensation Description Numbness Comments Sensation Comments Pt has numbness secondary to neuropathy in bilateral LE stocking distribution. Bilateral hands also affected. Muscle Tone Muscle Tone WNL Yes M6 PT-IP Treatment Start: 08/18/21 15:05 Freq: NEEDED Status: Active Protocol: Document 08/22/21 10:15 KS (Rec: 08/22/21 12:16 KS [id number]) Physical Therapy Treatment Education Education Provided Weight Bearing Status,Safety M7 PT-IP Assessment and Plan Start: 08/18/21 15:05 Freq: NEEDED Status: Active Protocol: Document 08/22/21 10:15 KS (Rec: 08/22/21 12:16 KS [id number]) PT Summary Assessment and Plan Potential Rehabilitation Potential Good Status of Condition at Evaluation Evolving Summary Impairments Pain,ROM,Balance,Sensation,Bed Mobility,Transfers,Gait Progress Towards Goals Slow Progress due to Activity Tolerance,Slow Progress - Other Assessment Summary Pt only agreeable to performing sit<>stands today and needing Min A and cues to avoid NWB LLE throughout treatment. She was unable to ambulate due to fatigue and weakness. She will require SNF to improve functional mobility independence. Goals Bed Mobility Goal Independent Transfer Goal Independent,Front Wheeled Walker Gait Goal Independent,Front Wheel Walker Gait Distance 50 Days to Meet Goals 8 Frequency of Treatment Frequency Of Treatment Once a Day Treatment Plan Physical Therapy Treatment Plan Bed Mobility Training,Transfer Training,Gait Training, Therapeutic Exercise,Balance Retraining,Post Op Education, Discharge Planning,Hot or Cold Pack,Neuromuscular Re-ed Other Recommendations and Next Treatment reenforce WB status; transfers Focus and gait with FWW; ther ex for LE strength Precautions Other Precautions falls Weight Bearing Status Weight Bearing Status Non-Weight Bearing Allowed Weight Bearing Amount (enter % NWB LLE or #) (%) Recommendations To Nursing Amount of Assist Needed 1 Person Assist Discharge Recommendations PT Discharge Recommendations SNF Rehab Equipment Needed for Home Before BSC Discharge Transportation Needs at Discharge Private Vehicle,Wheelchair/ Cabulance
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
--- NOTE | 2021-08-22 11:45 | OT.IPNOTE ---
Touched base with pt for sponging off or shower today, pt refusing at this time. Pt to go to skilled rehab this afternoon.
[2021-08-22 11:59] LABS: COVID19 -Nasal RAPID Negative (Negative)
--- NOTE | 2021-08-22 16:18 | CM.DPNOTE ---
DC Note DC to [facility] today, supervisor opening and picking via [facility] transport at approx 1400. Arranged this w/Uzma at [place]. Faxed all completed DC ppk to include signed med list, signed DC Summary and completed/signed PASRR RN called nurse report. Patient was aware and agreeable to plan, very appreciative today LM for Suyapa Haynes, wound care, w/update on patient's dispo. Patient will f/u w/ Dr Pearl per patient choice for next steps in wound care, suture removal etc. Plan: DC to [facility] today via w/c JW
== END 2021-08-22 14:40 | DRG 623 ==
LOC: ED 17:20 → AC 08-18 01:41
PROVIDERS: Internal Medicine; Nurse Practitioner Family; Orthopaedic Surgery; Admitting Provider Internal Medicine; Emergency Provider Emergency Medicine; PCP Physician Assistant; Referring Provider Emergency Medicine; Visit Provider Internal Medicine
PROC: 0KBW0ZZ Excision of Left Foot Muscle, Open Approach (ICD-10-PCS; principal; 2021-08-19 15:00)
DX: E11.621 Type 2 diabetes mellitus with foot ulcer (principal); L97.422 Non-pressure chronic ulcer of left heel and midfoot with fat layer exposed; L03.116 Cellulitis of left lower limb; Z68.41 Body mass index [BMI] 40.0-44.9, adult; E11.52 Type 2 diabetes mellitus with diabetic peripheral angiopathy with gangrene; I96 Gangrene, not elsewhere classified; Z16.24 Resistance to multiple antibiotics; E66.01 Morbid (severe) obesity due to excess calories; E11.42 Type 2 diabetes mellitus with diabetic polyneuropathy; J45.909 Unspecified asthma, uncomplicated; G47.33 Obstructive sleep apnea (adult) (pediatric); Z99.81 Dependence on supplemental oxygen; I48.0 Paroxysmal atrial fibrillation; B37.2 Candidiasis of skin and nail; B95.62 Methicillin resistant Staphylococcus aureus infection as the cause of diseases classified elsewhere; E11.65 Type 2 diabetes mellitus with hyperglycemia; E78.5 Hyperlipidemia, unspecified; G89.29 Other chronic pain; I10 Essential (primary) hypertension; K21.9 Gastro-esophageal reflux disease without esophagitis; M41.9 Scoliosis, unspecified; M19.91 Primary osteoarthritis, unspecified site; F32.9 Major depressive disorder, single episode, unspecified; K64.4 Residual hemorrhoidal skin tags; Z87.891 Personal history of nicotine dependence; Z20.822 Contact with and (suspected) exposure to COVID-19
CPT/HCPCS: 36415; 73630; 73702; 73718; 80048; 80202; 82962; 83036; 83605; 84145; 85025; 85027; 85651; 86140; 87040; 87070; 87075; 87077; 87086; 87147; 87176; 87186; 87205; 87635; 87797; 94760; 96365; 96367; 97163; 97166; 97530; 97535; 99284; C9803; G0378; A9270; J0330; J0696; J1170; J1650; J1815; J2185; J2405; J2704; Q9967

== ENCOUNTER → 2022-05-21 10:26 | Outpatient (CLI) | payer MEDICARE, MEDICAID, SELFPAY ==
[2021-08-17 17:57] VITALS: BMI 42.1
[2022-05-21 19:47] LABS: Add Manual Diff / Slide Review NO; Basophils Absolute Auto 100 /uL (0-100); Basophils Percent Auto 1.4 % (0-2); Eosinophils Absolute Auto 100 /uL (0-450); Eosinophils Percent Auto 1.5 % (2-4); Hematocrit 42.8 % (36-46); Hemoglobin 14.6 g/dL (12.0-16.0); Lymphocytes Absolute Auto 2600 /uL (1100-4500); Lymphocytes Percent Auto 27.1 % (25-40); Mean Corpuscular Hemoglobin 33.2 PG (26-34); Mean Corpuscular Volume 97.4 fL (80-100); Monocytes Absolute Auto 700 /uL (0-900); Monocytes Percent Auto 7.5 % (3-14); Neutrophils Absolute Auto 6100 /uL (1500-7000); Neutrophils Percent Auto 62.5 % (50-75); Platelet Count 179 X10^3/uL (150-400); Red Blood Cell Count 4.39 X10^6/uL (4.0-5.2); White Blood Cell Count 9.7 X10^3/uL (4.5-11.0)
[2022-05-21 20:14] LABS: Alanine Aminotransferase 23 IU/L (<35); Albumin 4.2 g/dL (3.5-5.0); Albumin Globulin Ratio 1.2 (1.0-2.8); Alkaline Phosphatase 103 U/L (38-126); Aspartate Aminotransferase 29 IU/L (14-36); BUN Creatinine Ratio 32.6 (6-22); Bilirubin Total 0.8 mg/dL (0.2-1.3); Blood Urea Nitrogen 14 mg/dL (7-17); Calcium 9.6 mg/dL (8.4-10.2); Carbon Dioxide 27 mmol/L (22-32); Chloride 99 mmol/L (98-107); Cholesterol 265 mg/dL (140-199); Estimated Glomerular Filt Rate > 60 mL/min (>60); Globulin 3.5 g/dL (1.7-4.1); Glucose 156 mg/dL (80-110); HDL Cholesterol 36 mg/dL (40-60); HEMOLYSIS < 15 (0-50); LDL Cholesterol Calculated 182 mg/dL (<100); Potassium 4.1 mmol/L (3.4-5.1); Sodium 137 mmol/L (137-145); Total Protein 7.7 g/dL (6.3-8.2); Triglycerides 237 mg/dL (35-150)
[2022-05-21 20:15] LABS: Hemoglobin A1C% w Est Avg Glu 6.2 % (4.0-6.0)
[2022-05-21 20:43] LABS: TSH w/ Reflex to FT4 1.41 uIU/mL (0.47-4.68)
== END ==
PROVIDERS: PCP Physician Assistant; Visit Provider Physician Assistant
DX: E11.65 Type 2 diabetes mellitus with hyperglycemia (principal); E78.2 Mixed hyperlipidemia; I10 Essential (primary) hypertension; Z79.899 Other long term (current) drug therapy
CPT/HCPCS: 80053; 80061; 83036; 84443; 85025

== ENCOUNTER → 2022-07-14 13:23 | Outpatient (CLI) | payer MEDICARE, MEDICAID, SELFPAY ==
[2021-08-17 17:57] VITALS: BMI 42.1
== END ==
PROVIDERS: PCP Physician Assistant; Visit Provider Physical Medicine & Rehabilitation
DX: G89.29 Other chronic pain (principal); M41.9 Scoliosis, unspecified; Z79.891 Long term (current) use of opiate analgesic
CPT/HCPCS: 80307

== ENCOUNTER 2022-10-08 19:55 | Emergency (ER) | payer MEDICARE, MEDICAID, SELFPAY ==
[2021-08-17 17:57] VITALS: BMI 42.1
[2022-10-08 20:02] VITALS: BP 134/59; PULSE 58; RESP 20; TEMP 36.8; O2SAT 94; BMI 40.4
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
--- NOTE | 2022-10-08 21:34 | DI.CT.S_ITS ---
PROCEDURE: CT CERVICAL SPINE WO CON INDICATIONS: fall w/ WEST 3 weeks ago and again 1 week, on asa, vomited x 2 TECHNIQUE: Noncontrast 3 mm thick sections acquired from the skull base to the T4 level. Sagittal and coronal reformats were then constructed. For radiation dose reduction, the following was used: automated exposure control, adjustment of mA and/or kV according to patient size. COMPARISON: [facility], CT, CT CERVICAL SPINE WO CON, 01/19/2020, 16:32. FINDINGS: Image quality: Excellent. Bones: No fractures or dislocations. C5-C6 ACDF. Visualized superior ribs are intact. Soft tissues: Prevertebral soft tissues are normal in thickness. No paravertebral hematomas. No apical pneumothoraces. IMPRESSION: No acute osseous abnormality. C5-C6 ACDF. Dictated by: Sean He M.D. on 10/08/2022 at 22:51 Approved by: Sean He M.D. on 10/08/2022 at 22:55
--- NOTE | 2022-10-08 21:34 | DI.CT.S_ITS ---
PROCEDURE: CT HEAD/BRAIN WO CON INDICATIONS: fall w/ WEST 3 weeks ago and again 1 week, on asa, vomited x 2 TECHNIQUE: Noncontrast 4.5 mm thick angled axial sections acquired from the foramen magnum to the vertex, with coronal and sagittal reformats. For radiation dose reduction, the following was used: automated exposure control, adjustment of mA and/or kV according to patient size. COMPARISON: [facility], CT, CT HEAD/BRAIN WO CON, 01/19/2020, 16:32. FINDINGS: Image quality: Excellent. CSF spaces: Basal cisterns are patent. No extra-axial fluid collections. Ventricles are normal in size and shape. Brain: No midline shift. No intracranial masses or hemorrhage. No area of hypodensity in a large vascular distribution to suggest acute infarction. Periventricular hypodensity consistent with chronic microvascular ischemic change. Age-related parenchymal loss. Skull and face: Calvarium and visualized facial bones are intact, without suspicious lesions. Hyperostosis frontalis. Sinuses: Visualized sinuses and mastoids are clear. Right mey bullosa. IMPRESSION: No acute intracranial abnormality. Dictated by: Sean He M.D. on 10/08/2022 at 22:43 Approved by: Sean He M.D. on 10/08/2022 at 22:46
[2022-10-08 22:08] LABS: Add Manual Diff / Slide Review NO; Basophils Absolute Auto 200 /uL (0-100); Basophils Percent Auto 1.8 % (0-2); Eosinophils Absolute Auto 300 /uL (0-450); Eosinophils Percent Auto 2.7 % (2-4); Hematocrit 39.7 % (36-46); Hemoglobin 13.6 g/dL (12.0-16.0); Lymphocytes Absolute Auto 3300 /uL (1100-4500); Lymphocytes Percent Auto 33.8 % (25-40); Mean Corpuscular HGB Conc 34.3 % (30-36); Mean Corpuscular Hemoglobin 33.1 PG (26-34); Mean Corpuscular Volume 96.6 fL (80-100); Monocytes Absolute Auto 700 /uL (0-900); Monocytes Percent Auto 7.1 % (3-14); Neutrophils Absolute Auto 5300 /uL (1500-7000); Neutrophils Percent Auto 54.6 % (50-75); Platelet Count 175 X10^3/uL (150-400); Red Blood Cell Count 4.11 X10^6/uL (4.0-5.2); Red Cell Distribution Width 13.9 % (11.6-14.8); White Blood Cell Count 9.6 X10^3/uL (4.5-11.0)
[2022-10-08 22:13] LABS: Alanine Aminotransferase 24 IU/L (<35); Albumin Globulin Ratio 1.3 (1.0-2.8); Alkaline Phosphatase 101 U/L (38-126); Aspartate Aminotransferase 24 IU/L (14-36); BUN Creatinine Ratio 40.8 (6-22); Bilirubin Total 0.5 mg/dL (0.2-1.3); Blood Urea Nitrogen 20 mg/dL (7-17); Calcium 9.9 mg/dL (8.4-10.2); Carbon Dioxide 30 mmol/L (22-32); Chloride 100 mmol/L (98-107); Estimated Glomerular Filt Rate > 60 mL/min (>60); Globulin 3.1 g/dL (1.7-4.1); Glucose 149 mg/dL (80-110); HEMOLYSIS < 15 (0-50); Lipase 12 U/L (23-300); Potassium 4.5 mmol/L (3.4-5.1); Sodium 135 mmol/L (137-145); Total Protein 7.1 g/dL (6.3-8.2)
[2022-10-08] MEDS: ONDANSETRON 4 MG/2 ML INJ IV (23:17)
[2022-10-09 00:36] VITALS: BP 120/56; PULSE 59; RESP 20; O2SAT 96
--- NOTE | 2022-10-09 01:22 | PC.NURSE ---
Pt ambulated to commode without difficulty. Pt is ready for discharge but will remain in ED until ferrelly starts running because she did not bring her home O2 which she needs for when she sleeps. Pt given food and drink and will sleep until 5pm [place]
--- NOTE | 2022-10-09 01:25 | PC.NURSE ---
Per MD permission pt is taking her home dose of pain medication that she was scheduled to take last night. This includes PO gabapentin and PO oxycodone.
[2022-10-09 04:37] VITALS: PULSE 58
[2022-10-09 06:12] VITALS: BP 122/60; PULSE 64; RESP 18; O2SAT 97
== END 2022-10-09 06:48 | disposition home or self-care (01) ==
PROVIDERS: Emergency Provider Emergency Medicine; PCP Physician Assistant
DX: S09.8XXA Other specified injuries of head, initial encounter (principal); R11.2 Nausea with vomiting, unspecified; W01.0XXA Fall on same level from slipping, tripping and stumbling without subsequent striking against object, initial encounter
CPT/HCPCS: 70450; 72125; 80053; 81003; 83690; 85025; 96374; 99284; J2405

== ENCOUNTER → 2023-01-07 11:17 | Outpatient (CLI) | payer MEDICARE, MEDICAID, SELFPAY ==
[2021-08-17 17:57] VITALS: BMI 42.1
--- NOTE | 2023-01-07 | DI.US.S_ITS ---
ULTRASOUND OF LEFT BREAST: 01/07/2023 CLINICAL: Palpable left axilla lump. Comparison is made to exams dated: 01/07/2023 mammogram - [facility], 10/18/2014 mammogram - [facility], 01/05/2020 mammogram - [facility], and 10/20/2013 mammogram - [facility]. Color flow and real-time ultrasound of the left breast were performed. Currie scale images of the real-time examination were reviewed. There is a benign axillary node in the left axilla that correlates with palpable abnormality. IMPRESSION: BENIGN There is no sonographic evidence of malignancy. There is no abnormality seen in the left breast to correspond with the diffuse pain, however, clinical correlation and clinical followup are recommended. There is a benign prominent axillary node with normal morphology in the left axilla that correlates with palpable abnormality, clinical correlation and clinical followup are recommended. Return to annual mammogram screening schedule is recommended. This exam was interpreted at Station ID: [id number]. Electronically Signed By: Keith Pate M.D. lc/:01/09/2023 10:22:18 letter sent: Clinical Evaluation Ultrasound BI-RADS: 2 Benign
--- NOTE | 2023-01-07 | DI.US.S_ITS ---
PROCEDURE: US ABDOMEN LIMITED INDICATIONS: PALPABLE UMBILICAL LUMP TECHNIQUE: Real-time focused scanning was performed of the abdomen, with image documentation. Color Doppler was also utilized. COMPARISON: [facility], , ABDOMEN LIMITED, 05/29/2016, 10:19. FINDINGS: Scanning is performed at the area of clinical concern within the periumbilical region. At this site, there is a fat containing hernia, with a hernia neck that measures up to 1.5 cm. This hernia does not appear reducible, and does not significantly change with Valsalva maneuver. IMPRESSION: Fat containing periumbilical hernia. Dictated by: Solomon Ramos M.D. on 01/07/2023 at 13:04 Approved by: Solomon Ramos M.D. on 01/07/2023 at 13:05
--- NOTE | 2023-01-07 11:39 | DI.MG.S_ITS ---
BILATERAL DIGITAL DIAGNOSTIC MAMMOGRAM 3D/2D: 01/07/2023 CLINICAL: Left breast mass. Comparison is made to exams dated: 01/05/2020 mammogram - [facility], 10/18/2014 mammogram, and 10/20/2013 mammogram - [facility]. There are scattered areas of fibroglandular density in both breasts (category b / 25%-50% glandular tissue). No significant masses, calcifications, or other findings are seen in either breast. IMPRESSION: INCOMPLETE: NEEDS ADDITIONAL IMAGING EVALUATION There is no abnormality seen in the left breast to correspond with the palpable abnormality and diffuse pain, however, ultrasound is recommended. Based on the Tyrer Cuzick model (a risk assessment model) the patient's lifetime risk is 4.7% and her 10 year risk is 2.7%. According to the ACR, ACS, and NCCN guidelines, an annual breast MRI exam along with mammogram is recommended if the patient's lifetime risk is 20% or greater. This exam was interpreted at Station ID: [id number]. NOTE: For mammograms, a report in lay terms will be sent to the patient. Approximately 15% of breast malignancies will not be visualized mammographically. In the management of a palpable breast mass, a negative mammogram must not discourage biopsy of a clinically suspicious lesion. Electronically Signed By: Keith Pate M.D. lc/:01/07/2023 13:24:23 ACR BI-RADS Category 0: Incomplete [id number]
== END ==
PROVIDERS: PCP Family Medicine; Referring Provider Family Medicine; Visit Provider Family Medicine
DX: N63.20 Unspecified lump in the left breast, unspecified quadrant (principal); N64.4 Mastodynia; R92.2 Inconclusive mammogram; K42.9 Umbilical hernia without obstruction or gangrene
CPT/HCPCS: 76705; 76882; 77066; G0279

== ENCOUNTER → 2023-05-28 11:04 | Outpatient (CLI) | payer MEDICARE, MEDICAID, SELFPAY ==
[2023-04-07 16:39] VITALS: BMI 42.1
== END ==
PROVIDERS: PCP Family Medicine; Visit Provider Physical Medicine & Rehabilitation
DX: Z79.891 Long term (current) use of opiate analgesic (principal)
CPT/HCPCS: 80307

== ENCOUNTER → 2023-07-07 16:14 | Outpatient (CLI) | payer MEDICARE, MEDICAID, SELFPAY ==
[2023-04-07 16:39] VITALS: BMI 42.1
== END ==
PROVIDERS: PCP Family Medicine; Visit Provider Family Medicine
DX: R39.89 Other symptoms and signs involving the genitourinary system (principal); I10 Essential (primary) hypertension; E11.8 Type 2 diabetes mellitus with unspecified complications
CPT/HCPCS: 87086

== ENCOUNTER → 2023-10-06 16:09 | Outpatient (CLI) | payer MEDICARE, MEDICAID, SELFPAY ==
[2023-04-07 16:39] VITALS: BMI 42.1
[2023-10-07 21:31] LABS: Microalbumi Creatinin Ratio Ur 58.8 ug/mg CR (<30)
== END ==
PROVIDERS: PCP Family Medicine; Visit Provider Family Medicine
DX: R31.9 Hematuria, unspecified (principal); E11.8 Type 2 diabetes mellitus with unspecified complications; R39.89 Other symptoms and signs involving the genitourinary system
CPT/HCPCS: 82043; 82570; 87086

== ENCOUNTER 2023-10-09 14:10 | Emergency (ER) | payer MEDICARE, MEDICAID, SELFPAY ==
[2023-04-07 16:39] VITALS: BMI 42.1
[2023-10-09 14:30] VITALS: BP 136/61; PULSE 55; RESP 18; TEMP 36.3; O2SAT 94; BMI 39.3
[2023-10-09 15:15] LABS: Add Manual Diff / Slide Review NO; Basophils Absolute Auto 300 /uL (0-100); Basophils Percent Auto 3.2 % (0-2); Eosinophils Absolute Auto 200 /uL (0-450); Eosinophils Percent Auto 1.9 % (2-4); Hematocrit 41.5 % (36-46); Hemoglobin 14.1 g/dL (12.0-16.0); Lymphocytes Absolute Auto 3000 /uL (1100-4500); Lymphocytes Percent Auto 27.3 % (25-40); Mean Corpuscular HGB Conc 33.9 % (30-36); Mean Corpuscular Hemoglobin 33.4 PG (26-34); Mean Corpuscular Volume 98.5 fL (80-100); Monocytes Absolute Auto 700 /uL (0-900); Monocytes Percent Auto 6.5 % (3-14); Neutrophils Absolute Auto 6700 /uL (1500-7000); Neutrophils Percent Auto 61.1 % (50-75); Platelet Count 220 X10^3/uL (150-400); Red Blood Cell Count 4.21 X10^6/uL (4.0-5.2); Red Cell Distribution Width 14.1 % (11.6-14.8)
[2023-10-09 15:20] LABS: Alanine Aminotransferase 21 IU/L (<35); Albumin 4.5 g/dL (3.5-5.0); Albumin Globulin Ratio 1.3 (1.0-2.8); Alkaline Phosphatase 84 U/L (38-126); Aspartate Aminotransferase 26 IU/L (14-36); BUN Creatinine Ratio 32.8 (6-22); Bilirubin Total 0.5 mg/dL (0.2-1.3); Blood Urea Nitrogen 20 mg/dL (7-17); Calcium 10.7 mg/dL (8.4-10.2); Carbon Dioxide 27 mmol/L (22-32); Chloride 104 mmol/L (98-107); Estimated Glomerular Filt Rate > 60 mL/min (>60); Globulin 3.4 g/dL (1.7-4.1); Glucose 218 mg/dL (80-110); HEMOLYSIS < 15 (0-50); Lipase 21 U/L (23-300); Potassium 4.6 mmol/L (3.4-5.1); Sodium 139 mmol/L (137-145); Total Protein 7.9 g/dL (6.3-8.2)
[2023-10-09 17:24] VITALS: BP 134/61; PULSE 67; O2SAT 95
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
--- NOTE | 2023-10-09 17:55 | DI.CT.S_ITS ---
PROCEDURE: CT ABDOMEN PELVIS W CON INDICATIONS: HEMATURIA, PAIN AROUND UMBILICAL HERNIA SITE TECHNIQUE: After the administration of intravenous contrast, axial sections acquired from the lung bases to the pubic symphysis. Coronal and sagittal reformats were performed. For radiation dose reduction, the following was used: automated exposure control, adjustment of mA and/or kV according to patient size. COMPARISON: [facility], CT, ABDOMEN/PELVIS WITH CONTRAST, 12/21/2015, 8:34. FINDINGS: Image quality: Diagnostic. Lower Chest: No significant findings. ABDOMEN: Liver: No solid mass. Hepatic steatosis. Gallbladder: Status post cholecystectomy Biliary ducts: No biliary dilation. Pancreas: No ductal dilation. Spleen: Size is within normal limits. Adrenal Glands: No adrenal nodules. Kidneys and Ureters: There is mild right hydronephrosis secondary to an obstructing 1.2 cm proximal right ureteral stone. There is mild distention of the right renal pelvis. The right ureter distally is normal in course and caliber. No left hydronephrosis. Incidental note of tiny punctate nonobstructing left renal stone. Left ureter is normal in course and caliber. Stomach and Bowel: Normal colonic caliber, without significant wall thickening. Moderate fecal material seen throughout the colon. Peritoneum: No abnormal intraperitoneal fluid. No free air. Ventral Wall: There is a fat-containing umbilical hernia without acute inflammation. Abdominal Nodes: No retroperitoneal or mesenteric adenopathy by size criteria. Vessels: Scattered atherosclerotic calcifications of the abdominal aorta and iliac vessels without aneurysmal dilatation. The inferior vena cava appears patent. PELVIS: Pelvic Organs: Redemonstration of right ovarian cyst measuring approximately 4.7 x 3.2 cm. Findings have increased slightly in size. Bladder: No bladder wall thickening, accounting for underdistention. Pelvic Nodes: No enlarged lymph nodes. Miscellaneous: No inguinal hernias are seen. Bones: No aggressive osseous abnormality. Bilateral total hip arthroplasty. Diffuse osteopenia. No evidence for acute compression fractures. IMPRESSION: 1. Mild right hydroureteronephrosis secondary to 1.2 cm proximal right ureteral stone noted just distal to the right renal pelvis. No significant perinephric stranding. 2. Nonobstructing punctate left renal stone. No left-sided hydronephrosis or acute inflammatory changes. 3. Moderate fecal burden seen throughout the colon. 4. Stable to slightly increased size of 4.7 cm right ovarian cyst. Consider outpatient pelvic ultrasound for further characterization. 5. Other chronic findings as above. Dictated by: Shahzad Mccallum M.D. on 10/09/2023 at 18:46 Approved by: Shahzad Mccallum M.D. on 10/09/2023 at 18:54
[2023-10-09 18:21] VITALS: PULSE 48; O2SAT 95
[2023-10-09 18:22] VITALS: BP 115/57; PULSE 50; O2SAT 93
== END 2023-10-09 19:12 | disposition home or self-care (01) ==
PROVIDERS: Emergency Medicine; Emergency Provider Emergency Medicine; PCP Family Medicine
DX: N20.0 Calculus of kidney (principal); N83.201 Unspecified ovarian cyst, right side; R10.84 Generalized abdominal pain; Z79.899 Other long term (current) drug therapy
CPT/HCPCS: 36415; 74177; 80053; 81003; 83690; 85025; 99283; 99284; Q9967

== ENCOUNTER → 2023-12-29 08:21 | Outpatient (CLI) | payer MEDICARE, MEDICAID, SELFPAY ==
[2023-04-07 16:39] VITALS: BMI 42.1
== END ==
PROVIDERS: PCP Family Medicine; Visit Provider Physician Assistant Medical
DX: S91.351A Open bite, right foot, initial encounter (principal); W50.3XXA Accidental bite by another person, initial encounter
CPT/HCPCS: 87070; 87075; 87077; 87186; 87205

== ENCOUNTER → 2024-01-07 13:57 | Outpatient (CLI) | payer MEDICARE, MEDICAID, SELFPAY ==
[2023-04-07 16:39] VITALS: BMI 42.1
[2024-01-07 21:43] LABS: Add Manual Diff / Slide Review NO; Basophils Absolute Auto 200 /uL (0-100); Basophils Percent Auto 2.7 % (0-2); Eosinophils Absolute Auto 200 /uL (0-450); Eosinophils Percent Auto 2.1 % (2-4); Hemoglobin 14.5 g/dL (12.0-16.0); Lymphocytes Absolute Auto 2600 /uL (1100-4500); Lymphocytes Percent Auto 32.5 % (25-40); Mean Corpuscular HGB Conc 34.5 % (30-36); Mean Corpuscular Hemoglobin 33.4 PG (26-34); Mean Corpuscular Volume 96.9 fL (80-100); Monocytes Absolute Auto 600 /uL (0-900); Monocytes Percent Auto 7.7 % (3-14); Neutrophils Absolute Auto 4500 /uL (1500-7000); Platelet Count 188 X10^3/uL (150-400); Red Blood Cell Count 4.33 X10^6/uL (4.0-5.2); Red Cell Distribution Width 14.1 % (11.6-14.8); White Blood Cell Count 8.1 X10^3/uL (4.5-11.0)
[2024-01-07 22:10] LABS: Erythrocyte Sedimentation Rate 31 MM/HR (0-20)
[2024-01-08 05:21] LABS: Alanine Aminotransferase 20 IU/L (<35); Albumin 4.5 g/dL (3.5-5.0); Albumin Globulin Ratio 1.5 (1.0-2.8); Alkaline Phosphatase 108 U/L (38-126); Aspartate Aminotransferase 22 IU/L (14-36); Bilirubin Total 0.6 mg/dL (0.2-1.3); Blood Urea Nitrogen 19 mg/dL (7-17); Carbon Dioxide 26 mmol/L (22-32); Chloride 104 mmol/L (98-107); Cholesterol 267 mg/dL (140-199); Estimated Glomerular Filt Rate > 60 mL/min (>60); Glucose 219 mg/dL (80-110); HDL Cholesterol 43 mg/dL (40-60); HEMOLYSIS < 15 (0-50); Potassium 4.6 mmol/L (3.4-5.1); Sodium 137 mmol/L (137-145); Total Protein 7.5 g/dL (6.3-8.2); Triglycerides 416 mg/dL (35-150)
[2024-01-08 05:30] LABS: TSH w/ Reflex to FT4 3.16 uIU/mL (0.47-4.68)
[2024-01-08 06:18] LABS: Cancer Antigen 125 < 5.5 U/mL (0-35)
[2024-01-08 22:59] LABS: C-Reactive Protein Quant < 0.5 mg/dL (<1.0)
== END ==
PROVIDERS: PCP Family Medicine; Visit Provider Family Medicine
DX: E11.621 Type 2 diabetes mellitus with foot ulcer (principal); C56.9 Malignant neoplasm of unspecified ovary; L97.509 Non-pressure chronic ulcer of other part of unspecified foot with unspecified severity; E11.42 Type 2 diabetes mellitus with diabetic polyneuropathy; E11.8 Type 2 diabetes mellitus with unspecified complications; E11.628 Type 2 diabetes mellitus with other skin complications; L08.9 Local infection of the skin and subcutaneous tissue, unspecified; D49.59 Neoplasm of unspecified behavior of other genitourinary organ
CPT/HCPCS: 80053; 80061; 84443; 85025; 85651; 86140; 86304

== ENCOUNTER 2024-03-18 18:56 | Emergency (ER) | payer MEDICARE, MEDICAID, SELFPAY ==
[2023-04-07 16:39] VITALS: BMI 42.1
[2024-03-18] VITALS (7 sets, daily range): BP systolic 117–127; BP diastolic 55–61; PULSE 67–83; RESP 18; TEMP 37.6–38; O2SAT 82–97; BMI 39.6
--- NOTE | 2024-03-18 19:22 | DI.RAD.S_ITS ---
PROCEDURE: XR HIP W PEL IF DONE RT 2V INDICATIONS: fall 1 week ago, pain TECHNIQUE: AP pelvis with lateral view(s) of the right hip(s). COMPARISON: [facility], [place], XR HIP W PEL IF DONE LT 2V, 02/14/2019, 15:52. FINDINGS: Bones: Bilateral hip arthroplasties. No periprosthetic lucency to suggest loosening or infection. No fractures identified. No dislocations. Pelvic ring appears intact. No suspicious bony lesions. Soft tissues: The visualized bowel gas pattern is normal. No suspicious soft tissue calcifications. Clips in the pelvis. IMPRESSION: No acute bony abnormality seen. Bilateral hip arthroplasties. Dictated by: Sean He M.D. on 03/18/2024 at 19:50 Approved by: Sean He M.D. on 03/18/2024 at 19:51
[2024-03-18 20:10] LABS: Influenza A - CEPHEID Flu A NEGATIVE (NEGATIVE); Influenza B - CEPHEID Flu B NEGATIVE (NEGATIVE); Respiratory Syncytial Virus Negative (Negative)
[2024-03-18 20:15] LABS: COVID-19 CEPHEID 4-PLEX PCR Negative (Negative)
[2024-03-18 20:45] LABS: Bacteria Urine None Seen; RBC Urine 0-1/HPF (0-5/HPF); Squamous Epithelial Cell Urine 0-1 /HPF (0-5/HPF); Urine Volume 10mL (spun); WBC Urine 0-1/HPF (0-5/HPF)
[2024-03-18 20:46] LABS: Culture Indicated Urine Cult Not Indicated
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
== END 2024-03-18 21:56 | disposition home or self-care (01) ==
PROVIDERS: Emergency Provider Emergency Medicine; PCP Family Medicine
DX: M25.552 Pain in left hip (principal); M25.551 Pain in right hip; R50.9 Fever, unspecified; W18.30XA Fall on same level, unspecified, initial encounter; Z79.899 Other long term (current) drug therapy; Z11.52 Encounter for screening for COVID-19
CPT/HCPCS: 0241U; 73502; 81003; 81015; 99283; 99284

== ENCOUNTER 2024-08-01 17:37 | Inpatient (IN) | payer MEDICARE, MEDICAID, SELFPAY ==
[2024-07-12 15:48] VITALS: BMI 42.1
[2024-08-01] VITALS (19 sets, daily range): BP systolic 99–142; BP diastolic 52–85; PULSE 29–104; RESP 14–23; O2SAT 95–99; BMI 45.3
--- NOTE | 2024-08-01 17:52 | EKG_ITS ---
[address] [address] Test Date: 2024-08-01 Pat Name: Roselia Mckay Department: [facility] Room: Gender: Female Teletype Telegrapher: MEHNAZ : 1955 Requested By: Order Number: [id number] Reading MD: Jerod Chino Measurements Intervals [place] Rate: 88 P: 35 AK: 166 QRS: 14 QRSD: 80 T: 50 QT: 336 QTc: 406 Interpretive Statements Normal sinus rhythm Electronically Signed On 08-03-2024 23:44:33 PST by Jerod Chino
[2024-08-01 18:19] LABS: Add Manual Diff / Slide Review NO; Basophils Absolute Auto 100 /uL (0-100); Basophils Percent Auto 0.9 % (0-2); Eosinophils Absolute Auto 200 /uL (0-450); Eosinophils Percent Auto 1.3 % (2-4); Hematocrit 34.1 % (36-46); Hemoglobin 10.8 g/dL (12.0-16.0); Lymphocytes Absolute Auto 1600 /uL (1100-4500); Lymphocytes Percent Auto 11.7 % (25-40); Mean Corpuscular HGB Conc 31.6 % (30-36); Mean Corpuscular Hemoglobin 29.4 PG (26-34); Mean Corpuscular Volume 92.9 fL (80-100); Monocytes Absolute Auto 1000 /uL (0-900); Monocytes Percent Auto 7.5 % (3-14); Neutrophils Absolute Auto 10700 /uL (1500-7000); Neutrophils Percent Auto 78.6 % (50-75); Platelet Count 250 X10^3/uL (150-400); Red Blood Cell Count 3.67 X10^6/uL (4.0-5.2); Red Cell Distribution Width 18.2 % (11.6-14.8); White Blood Cell Count 13.7 X10^3/uL (4.5-11.0)
[2024-08-01 18:30] LABS: Prothrombin Time 11.3 SECONDS (9.4-12.5)
[2024-08-01 18:32] LABS: PTT Partial Thromboplastin Tim 32 SECONDS (25.1-36.5)
[2024-08-01 18:34] LABS: Alanine Aminotransferase 21 IU/L (<35); Albumin 3.5 g/dL (3.5-5.0); Albumin Globulin Ratio 1.1 (1.0-2.8); Alkaline Phosphatase 71 U/L (38-126); Aspartate Aminotransferase 43 IU/L (14-36); BUN Creatinine Ratio 39.7 (6-22); Bilirubin Total 0.6 mg/dL (0.2-1.3); Blood Urea Nitrogen 23 mg/dL (7-17); Carbon Dioxide 39 mmol/L (22-32); Chloride 86 mmol/L (98-107); Estimated Glomerular Filt Rate > 60 mL/min (>60); Globulin 3.2 g/dL (1.7-4.1); Glucose 161 mg/dL (80-110); HEMOLYSIS < 15 (0-50); Potassium 3.9 mmol/L (3.4-5.1); Sodium 128 mmol/L (137-145); Total Protein 6.7 g/dL (6.3-8.2)
[2024-08-01 18:37] LABS: Lipase < 10 U/L (23-300)
--- NOTE | 2024-08-01 18:52 | PC.NURSE ---
Pt up to BR with SBA using FWW and portable O2 tank. Steady gait noted.
[2024-08-01 18:59] LABS: Urine Volume 10mL (spun)
[2024-08-01 19:04] LABS: RBC Urine None Seen (0-5/HPF)
[2024-08-01 19:05] LABS: Bacteria Urine Moderate (10-30); Culture Indicated Urine Specimen Cultured; Squamous Epithelial Cell Urine 0-1 /HPF (0-5/HPF); WBC Urine 30-100/HPF (0-5/HPF)
--- NOTE | 2024-08-01 21:02 | ED_ITS ---
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 Narrative Medical decision making narrative: MDM CC: Abdominal pain shortness of breath Complicating co-morbidities: Metastatic pancreatic cancer, chronic hypoxia on home O2 Medical records reviewed: Records from 07/25/2024 show that she did have multiple needle core tissue fragments, infiltrating neoplastic glands lined by tall columnar and low cuboidal epithelium 07/25/2024 WBC 13.5 hemoglobin 11.6 hematocrit 38.3 Differential considered: Ascites secondary to cancer versus SBP Exam documented above, pertinent findings include: 69-year-old female with significant distention and positive fluid wave of abdomen, no significant shortness of breath easily arousable Lab Test results independently reviewed as above. Pertinent findings: WBC 13.7, hemoglobin 10.8 hematocrit 34.1 previously 14.5/42 platelets 250 CMP mild hyponatremia sodium 120 potassium 3.9 chloride 86 carbon dioxide 39 BUN 23 creatinine 0.5 Bilirubin 0.6, AST 43, ALT 21 lipase less than 10 Urinalysis positive for bacteria and leukocytes consistent with UTI Independently reviewed EKG as above No ischemia sinus rhythm Imaging studies independently reviewed: Ultrasound marked left lower quadrant for paracentesis CT chest abdomen pelvis does show new multiple hepatic masses, persistent mass in pancreatic neck and body no evidence of obstruction significant ascites She was also noted to have a 17 mm right ureteropelvic kidney stone with [id number] hydro nephrosis Consultations: 0545 Dr. Valles, urology, updated on patient's symptoms test results, reports that with UTI leukocytosis kidney stone will need ureteral stent in admission to the hospital 0550 Dr. Melo accepts Treatments: Paracentesis with 6 L Re-evaluations: Patient had paracentesis with 6 L drained she did get mildly hypotensive she was pretreated with 25 g of albumin and then given another 25 g, blood pressure did improve Discussion: Patient 69-year-old female initially presenting with abdominal pain and ascites with known pancreatic cancer. [place]. She has not in a lot of pain at this time. She was found to have leukocytosis which does appear stable from July 25. There are many WBCs but no organisms seen on initial gram stain. I do not suspect SBP Blood cultures now drawn with a lactate added. Discharge Plan Departure Patient Disposition: Admitted As Inpatient Clinical Impression: Acute UTI, Right nephrolithiasis, Metastasis from pancreatic cancer Admit Date/Time: 08/02/24 06:00 Admit Provider: Sixto Melo
--- NOTE | 2024-08-01 21:15 | DI.US.S_ITS ---
PROCEDURE: US ABDOMEN LIMITED INDICATIONS: louie for para please TECHNIQUE: Real-time focused scanning was performed of the abdomen, with image documentation. COMPARISON: [facility], , US ABDOMEN LIMITED, 01/07/2023, 13:20. FINDINGS: Left lower quadrant is the deepest pocket of fluid measuring 8 cm from skin surface to central portion. IMPRESSION: Paracentesis marking. Dictated by: Madai Dick M.D. on 08/01/2024 at 21:57 Approved by: Madai Dick M.D. on 08/01/2024 at 21:58
--- NOTE | 2024-08-01 21:15 | DI.CT.S_ITS ---
PROCEDURE: CT ANGIO CHEST PE PROTOCOL INDICATIONS: hypoxia known pancreatic cancer TECHNIQUE: After the administration of intravenous contrast, 2 mm thick sections acquired from the pulmonary apices to the posterior costophrenic angles. 3-dimensional maximum intensity projection (MIP) coronal and sagittal reformats were then acquired through the thorax. For radiation dose reduction, the following was used: automated exposure control, adjustment of mA and/or kV according to patient size. COMPARISON: None. FINDINGS: Image quality: Diagnostic. Pulmonary arteries: Main pulmonary artery measures up to 3.6 cm in size, which can be seen in setting of pulmonary arterial hypertension. No intraluminal filling defects to suggest central pulmonary embolism. Lower Neck: No enlarged lymph nodes. Thyroid: No thyroid nodules which require sonographic follow up, per consensus guidelines. Axillae: No enlarged lymph nodes. Chest Wall: Soft tissue anasarca. Bones: Generalized osteopenia. Bridging osteophytes or syndesmophytes in the thoracic spine. Scoliotic curvature is noted. Degenerative changes are seen in the glenohumeral joints bilaterally. Postsurgical changes in the cervical spine Lungs and Pleura: Small right pleural effusion. Right basilar atelectasis. Areas of band like atelectasis or scarring are seen in both lungs. Heart: Heart size is mildly enlarged. No pericardial effusion. Thoracic Vessels: No aortic aneurysm. Mediastinum and Carol: A right pericardiophrenic lymph node measures 1.2 cm in short axis (4/102). No other mediastinal or hilar lymphadenopathy is seen. Esophagus: No wall thickening. No hiatal hernia. Upper Abdomen: Separately dictated. IMPRESSION: 1. No acute pulmonary embolus. 2. Main pulmonary artery is enlarged to 3.6 cm, which can be seen in setting of pulmonary arterial hypertension. 3. Cardiomegaly. 4. Small right pleural effusion. Mild soft tissue anasarca. Approved by: Jai Diamond M.D. on 08/01/2024 at 22:34
--- NOTE | 2024-08-01 21:15 | DI.CT.S_ITS ---
PROCEDURE: CT ABDOMEN PELVIS W CON INDICATIONS: Pancreatic cancer TECHNIQUE: After the administration of intravenous contrast, axial sections acquired from the lung bases to the pubic symphysis. Coronal and sagittal reformats were performed. For radiation dose reduction, the following was used: automated exposure control, adjustment of mA and/or kV according to patient size. COMPARISON: [facility], CT, CT ABDOMEN PELVIS W CON, 10/09/2023, 18:05. FINDINGS: Image quality: Diagnostic. Lower Chest: Right pericardiophrenic lymph node measures 1.1 cm in short axis diameter. Heart is enlarged. Small right pleural effusion with right basilar atelectasis. ABDOMEN: Liver: Hypoattenuating lesions in the liver are seen. The largest lesion is seen measuring up to 1.7 cm in segment 7 (2/54) these lesions are new when compared to the CT from 10/09/2023. Gallbladder: Status post cholecystectomy. Biliary ducts: No biliary dilation. Pancreas: Mass lesion is seen arising from the body/neck of the pancreas, which appears continuous with soft tissue material in the mari hepatis and gastrohepatic ligament region. There is atrophy of the pancreatic tail. Spleen: Size is within normal limits. Adrenal Glands: No adrenal nodules. Kidneys and Ureters: [id number] right hydronephrosis. A 17 mm calculus is seen at the ureteropelvic junction (950 Hounsfield units). No left renal calculus or left hydronephrosis. No solid mass. No complex renal cystic lesion which requires follow up. Stomach and Bowel: No signs of bowel obstruction. Moderate right colonic stool. Peritoneum: Moderate ascites. Nodular soft tissue material is seen in the upper abdomen including the mari hepatis region consistent with peritoneal carcinomatosis. Soft tissue nodularity is also prominent in the anterior lower pelvis. Ventral Wall: Soft tissue anasarca. Lower abdominal ventral hernias contain fat and ascitic fluid. Abdominal Nodes: Upper abdominal retroperitoneal and mari hepatis lymphadenopathy. Vessels: Aorta and inferior vena cava are normal in size. PELVIS: Pelvic Organs: Status post hysterectomy. Bladder: No bladder wall thickening, accounting for underdistention. Pelvic Nodes: No enlarged lymph nodes. Miscellaneous: No inguinal hernias are seen. Bones: Bilateral total hip arthroplasties with associated streak artifact. Generalized osteopenia. Sclerotic curvature of the spine with multilevel bridging syndesmophytes or osteophytes. No obvious aggressive osseous mass. IMPRESSION: 1. Mass is seen arising from the neck/body of the pancreas with atrophy of the pancreatic tail. The mass is confluent with peritoneal implants in the upper abdomen, which compromises evaluation of the mass size. 2. Moderate to large volume of ascites. Multifocal peritoneal implants consistent with peritoneal carcinomatosis. 3. Multiple new hepatic masses are consistent with hepatic metastatic disease. 4. Right proximal ureteral 17 mm calculus at the ureteropelvic junction with mild to moderate right hydronephrosis. Approved by: Jai Diamond M.D. on 08/01/2024 at 22:49
[2024-08-01] MEDS: HYDROMORPHONE 1 MG INJ IV (21:22)
[2024-08-02] VITALS (55 sets, daily range): BP systolic 90–132; BP diastolic 35–64; PULSE 82–102; RESP 12–29; TEMP 36–36.9; O2SAT 94–100; BMI 45.3
[2024-08-02] MEDS: ALBUMIN HUMAN 25 GM/100 ML VIAL IV ×2 (00:24→02:56)
--- NOTE | 2024-08-02 02:20 | PC.NURSE ---
Dr. Harrington performed paracentesis with nurse nurse as assist. Pt tolerated 6 liters of fluid drained, sent sample down to lab. Pt' BP went into the 90's systolic. Second dose of Albumin ordered by Dr. Harrington- see MAR. Pt otherwise tolerated procedure well with no complications. Len Hyde placed suture incision area and this nurse dressed with Allevyn bandage.
[2024-08-02 03:00] LABS: Body Fluid Tot Nucleated Cells 477 /uL
[2024-08-02 03:01] LABS: Body Fluid Appearance HAZY; Body Fluid Clotted? NO CLOTS PRESENT; Body Fluid Color YELLOW; Body Fluid Red Blood Cells 918 /uL
[2024-08-02 03:08] LABS: Neutrophils Body Fluid 5 %
[2024-08-02 03:09] LABS: Basophils Body Fluid 0 %; Eosinophils Body Fluid 2 %; Lymphocytes Body Fluid 57 %; MESO/MACRO/MONO Body Fluid 36 %
[2024-08-02] MEDS: cefTRIAXone 2,000 MG in SODIUM CHLORIDE 0.9% 100 ML 200 MG IV (05:35)
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
--- NOTE | 2024-08-02 07:06 | PC.NURSE ---
Pt admitted at 0645, pt was transfer to bed with 4 nurses and slider board. pt on 3 L NC, Purewick placed. bed alarm in place. online publisher doctor rounded with pt. will pass report to dayshift nurse. awaiting orders to be verify by pharmacy.
--- NOTE | 2024-08-02 08:24 | PC.NURSE ---
Patient is asleep but wakes up easily and is alert and oriented x3. Her skin check is done, she is admitted to the floor. David denies any pain, per she has a kidney stone in her r.ureter that is large, she will go to surgery to have a stent placed and she is npo at this time. She will be able to go back on original diet after stent is placed. She is resting comfortably now.
--- NOTE | 2024-08-02 11:38 | SUR.OPER ---
Lithotomy on padded OR bed, head on pillow, arms secured on padded arm boards at <90 degrees abduction. Legs secured in padded yellow fins stirrups.
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
--- NOTE | 2024-08-02 11:49 | PC.NURSE ---
Patient just down for stent placement. Patient groggy and sleepy this morning. She is alert and oriented x4. Patients abdomen is distended, she had a tap down in the ER and she had 6L out per report. Patient has a dressing in place where this was done.
[2024-08-02] MEDS: LACTATED RINGERS 1,000 ML 42 ML IV (11:58)
[2024-08-02] MEDS: ALBUTEROL/IPRATROPIUM 3 ML AMPUL INH (11:58)
[2024-08-02] MEDS: iopamidoL 30 ML VIAL INJ (12:27)
--- NOTE | 2024-08-02 12:42 | DI.RAD.S_ITS ---
PROCEDURE: XR ABDOMEN MIN 2V INDICATIONS: RIGHT STENT PLACEMENT TECHNIQUE: Intraoperative fluoroscopic views views of the abdomen were acquired. COMPARISON: [facility], CT, CT ABDOMEN PELVIS W CON, 08/01/2024, 21:21. FINDINGS: Intraoperative fluoroscopic views during right ureteral stent placement. Moderate right hydronephrosis is present. IMPRESSION: Intraoperative fluoroscopic views during right ureteral stent placement. Moderate right hydronephrosis is present. Dictated by: Vazquez Loredo M.D. on 08/02/2024 at 13:46 Approved by: Vazquez Loredo M.D. on 08/02/2024 at 13:47
[2024-08-02] MEDS: OXYCODONE IR 5 MG TABLET PO (13:09)
--- NOTE | 2024-08-02 13:28 | PM.OP.1 ---
Procedure & Clinicians Procedure: Cystoscopy Right retrograde ureteropyelogram Right ureteral stent placement Same procedure as scheduled: Yes Indications: 69 y/o F noted to have a 17mm right proximal ureterolith with resultant upstream mild to moderate hydroureteronephrosis in the setting of an active urinary tract infection. Discussed the need for an urgent cystoscopy w/ right ureteral stent placement secondary to the aforementioned UTI. Surgeon: Mahamed Valles Click Yes if Unassisted: Yes Anesthesia Type: General Operative Notes Findings: Cloudy debris within urine consistent with urinary tract infection, moderate right hydronephrosis Closure Type: not applicable Specimen(s): other (urine culture from right renal collecting system) Estimated Blood Loss (mL): 2 Blood products transfused: none Procedure in detail: Patient was identified in the preoperative holding area and consent confirmed. She was then brought to the operating room where general anesthesia was induced.? She was then placed in the low lithotomy position. She was then prepped and draped in the usual sterile fashion. A surgical timeout was conducted and all were in agreement. Access to the bladder was obtained via a 21Fr cystoscope.? Cloudy urine was immediately noted within the bladder.? The right ureteral orifice was easily visualized and a 0.035 sensor tip ureteral guidewire was advanced through the 5Fr ureteral catheter and into the right renal collecting system.? The ureteral guidewire was removed and an intraoperative urine culture was taken from the right renal collecting system. A retrograde pyelogram was performed which noted moderate right hydronephrosis.? The ureteral guidewire was readvanced through the ureteral catheter and into the right renal pelvis.? The ureteral catheter was then removed.? A 6Fr multi-length JJ ureteral stent without strings was then advanced over the ureteral guidewire and into the right renal collecting system.? Upon removal of the ureteral guidewire, a good curl was appreciated within the right renal pelvis upon fluoroscopy and visually within the bladder.? The bladder was then drained and the cystoscope was removed.? Anesthesia was reversed, she was extubated in the OR and transferred to the PACU in stable condition for recovery. Complications: none Post-operative Condition: stable Disposition: ICU Plan for aftercare: Will transfer back to the ICU for continued care with the hospitalist team. Will follow-up on her urine culture in the next few days and have her return to the OR in 2-8 weeks for a cystoscopy, right ureteroscopy, laser lithotripsy and right ureteral stent exchange.
[2024-08-02] MEDS: BACLOFEN 10 MG TABLET PO (15:00)
[2024-08-02] MEDS: SODIUM CHLORIDE 0.9% 1,000 ML 100 ML IV (15:33)
[2024-08-02] MEDS: OXYCODONE IR 10 MG TABLET PO ×2 (15:34→20:31)
[2024-08-02] MEDS: TAMSULOSIN 0.4 MG CAPSULE PO (15:36)
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
--- NOTE | 2024-08-02 16:54 | CM.DPNOTE ---
DCP note ANIMAL CYTOLOGIST reviewed EMR Per chart review, pt admitted for UTI/nephrolithiasis/ PMH of metastasis from pancreatic cancer. on 4ltrs O2 at the moment, unclear if she's on O2 at home or not. Per chart review/provider, pt reports family cannot care for her anymore. lives on [place] with DIL and son that cannot care for her at home. ANIMAL CYTOLOGIST met briefly with pt and friend in room. pt confirms hx of [facility] believes she was there for 5 weeks, discharged from there a few days ago and only spent a few days at home before returning here. wants SNF placement closer to home. ANIMAL CYTOLOGIST explained she cannot get cancer/oncology treatments while at SNF. ANIMAL CYTOLOGIST started to review LTC / Medicaid jin process when pt taken from floor for right stent placement with Urology. ANIMAL CYTOLOGIST attempted to meet with pt later in afternoon, groggy and allowed to rest. Unable to speak with DIL/Son from [place] via phone today due to triaging needs. Per Andria at , will continue to have their team review, can't take cancer pt. without Oncology documentation on okay no cancer tx during snf stay. Comprehensive DCP assessment to come. Medical POC Continues. SNF vs LTC vs return home with family? CM team will continue to follow closely KAREN Milligan
[2024-08-02] MEDS: GABAPENTIN 600 MG TABLET PO ×2 (17:59→20:30)
[2024-08-02] MEDS: METHYLPHENIDATE 5 MG TABLET 10 MG PO (17:59)
[2024-08-02] MEDS: HEPARIN 5,000 UNIT/ML VIAL 5000 UNIT SUBCUT (20:31)
[2024-08-02] MEDS: ALBUTEROL 2.5 MG/3 ML NEB (ADULT) INH (20:52)
[2024-08-02 21:08] LABS: Acinetobacter calcoa-baumannii Not Detected (Not Detect); Bacteroides fragilis Not Detected (Not Detect); Candida albicans Not Detected (Not Detect); Candida auris Not Detected (Not Detect); Candida glabrata Not Detected (Not Detect); Candida krusei Not Detected (Not Detect); Candida parapsilosis Not Detected (Not Detect); Candida tropicalis Not Detected (Not Detect); Cryptococcus neoformans/gatti Not Detected (Not Detect); Enterobacter cloacae complex Not Detected (Not Detect); Enterobacterales Not Detected (Not Detect); Enterococcus faecalis Not Detected (Not Detect); Enterococcus faecium Not Detected (Not Detect); Haemophilus influenzae Not Detected (Not Detect); Klebsiella aerogenes Not Detected (Not Detect); Listeria monocytogenes Not Detected (Not Detect); Neisseria meningitidis Not Detected (Not Detect); Proteus species Not Detected (Not Detect); Pseudomonas aeruginosa Not Detected (Not Detect); Salmonella species Not Detected (Not Detect); Serratia marcescens Not Detected (Not Detect); Staphylococcus epidermidis Not Detected (Not Detect); Staphylococcus lugdunensis Not Detected (Not Detect); Staphylococcus species Detected (Not Detect); Stenotrophomonas maltophilia Not Detected (Not Detect); Streptococcus agalactiae (Gr B Not Detected (Not Detect); Streptococcus pneumonia Not Detected (Not Detect); Streptococcus pyogenes (Gr A) Not Detected (Not Detect); Streptococcus species Not Detected (Not Detect)
[2024-08-03] VITALS (9 sets, daily range): BP systolic 97–133; BP diastolic 45–62; PULSE 87–105; RESP 18–20; TEMP 36.1–36.4; O2SAT 94–100
[2024-08-03] MEDS: SODIUM CHLORIDE 0.9% 1,000 ML 100 ML IV ×2 (00:01→06:01)
[2024-08-03] MEDS: ZOLPIDEM 5 MG TABLET PO ×2 (01:21→20:50)
[2024-08-03] MEDS: OXYCODONE IR 10 MG TABLET PO ×4 (01:24→21:15)
[2024-08-03 05:42] LABS: BUN Creatinine Ratio 39.3 (6-22); Blood Urea Nitrogen 22 mg/dL (7-17); Calcium 8.8 mg/dL (8.4-10.2); Carbon Dioxide 35 mmol/L (22-32); Chloride 89 mmol/L (98-107); Estimated Glomerular Filt Rate > 60 mL/min (>60); Glucose 140 mg/dL (80-110); HEMOLYSIS < 15 (0-50); Potassium 4.6 mmol/L (3.4-5.1); Sodium 129 mmol/L (137-145)
[2024-08-03] MEDS: cefTRIAXone 1,000 MG in SODIUM CHLORIDE 0.9% 100 ML 200 MG IV (05:49)
[2024-08-03] MEDS: METHYLPHENIDATE 5 MG TABLET 10 MG PO ×3 (05:50→18:20)
[2024-08-03] MEDS: TAMSULOSIN 0.4 MG CAPSULE PO (08:24)
[2024-08-03] MEDS: GABAPENTIN 600 MG TABLET PO ×4 (08:25→20:49)
[2024-08-03] MEDS: HEPARIN 5,000 UNIT/ML VIAL 5000 UNIT SUBCUT ×2 (08:26→20:49)
[2024-08-03] MEDS: CHOLECALCIFEROL (VITAMIN D3) 1,000 UNIT TABLET 2000 UNIT PO (08:26)
[2024-08-03] MEDS: MULTIVITAMIN 1 TABLET 1 TAB PO (08:26)
[2024-08-03] MEDS: ALBUTEROL 2.5 MG/3 ML NEB (ADULT) INH (10:13)
[2024-08-03] MEDS: OXYCODONE IR 5 MG TABLET 10 MG PO (13:51)
[2024-08-03] MEDS: LORazepam 1 MG TABLET 2 MG PO (13:51)
--- NOTE | 2024-08-03 15:12 | OT.IPNOTE ---
Hold OT eval per nursing, to check on pt tomorrow.
--- NOTE | 2024-08-03 15:17 | PT-IP ANOTE ---
PT eval order received. EMR reviewed. checked with nurse and stated that pt is about to get a paracentesis and will not be able to do PT.
--- NOTE | 2024-08-03 15:48 | CM.DANOTE ---
DCP Cont Met w/patient. Therapy orders in and evals are pending. Patient confirms she would like to discharge to [facility] if possible. Patient says in no uncertain terms I DO NOT want hospice. Patient receives food stamps and is eligible for LANDY care in the home, 44 hours, LANDY RUFF Arlyn Bernardo (contact#?) although no caregiver has been secured on [facility]. Patient is agreeable to living in an [facility] vs [facility] if this could be arranged eventually. Plan: Likely SNF; check in with [facility] 08/04. PASRR needed. Patient aware that she cannot seek any cancer care while admitted under [facility] benefit at SNF. Plan: Discharge likely to SNF for rehab. Contact with [facility] might be helpful for continuity of care. KAREN Chacon Discharge Planning/Care Management Discharge Assessment Start: 08/03/24 15:44 Freq: Status: Active Protocol: Document 08/03/24 15:44 JOYCELYN (Rec: 08/03/24 15:48 JOYCELYN [id number]) Discharge Planning Assessment Assigned [employer] KAREN Pugh DPOA/Assigned Designee Name shane Uribe Contact Information [phone] Advance Directives? No Advance Directives on File No History Provided By Patient,Medical Record Prior Living Arrangements House Household Members family Type of transporation used prior to Relies on Others admit Independent with ADL's No Is patient alert and oriented? Yes Needs Assistance With Bathing,Grooming,Meal Prep, Toileting,Managing Medications ,Home Chores / Shopping Comment Patient has ELZBIETA BILL. hrs: 44. No current caregiver, cannot find one on [facility]. Patient/Family Preference [facility] Facility Barriers to Discharge Yes Comment Patient may not have enough care at home currently. Discharge Plan [facility] Facility Transportation Arrangement Likely wheelchair Referrals Initiated [facility] Additional Comment [facility] is reviewing. Patient CANNOT seek cancer care while admitted under [facility] at SNF. Whiteboard Updated in Patient Room with Yes name and ext. # of [employer]
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
--- NOTE | 2024-08-03 16:15 | PM.PROC.1 ---
Procedures Date/Time Date of procedure: 08/03/24 Time of procedure: 17:45 Paracentesis Time out performed: Yes Indication: Ascites Procedure: therapeutic paracentesis Location: RLQ Local anesthetic used: lidocaine 1% Amount of anesthesia used (ml): 2 Bedside ultrasound used: yes, Ascites confirmed and location marked Preparation: sterile prep and drape Fluid: clear Size of needle used: 5 Post procedure exam: awake, alert Patient tolerated procedure: well and no complications Complications: none Additional comments: This is a 69-year-old female who complained of worsening abdominal pain today with massive ascites, likely due to underlying pancreatic cancer. She had had 6 L of fluid removed yesterday, but complained of worsening abdominal pain again and was indicated for therapeutic paracentesis today. A time-out was performed, a fluid pocket was visualized in the right lower quadrant with ultrasound and the site was marked. 1% lidocaine was used for local anesthesia. Initially the needle was inserted but I hit quite a bit of resistance, and some fluid came out after removal although there was quite a bit of resistance. When the needle was removed it was kinked at the tip. I repeated this but a similar occurrence happened on the 2nd needle. In retrospect this was likely due to a peritoneal implant, so an ultrasound was again used to locate a better location, and a 3rd needle was used with ultrasound guidance, this time with no resistance and free-flowing fluid. A total of 6.7 L of fluid was able to be removed, the patient tolerated this procedure without complication and felt much improved following the procedure. She had had some studies including cell count sent from initial evaluation, but further complete workup of her fluid analysis was sent including cytology.
[2024-08-03] MEDS: ALBUMIN HUMAN 50 GM/200 ML VIAL IV (18:20)
[2024-08-03] MEDS: FUROSEMIDE 40 MG TABLET 20 MG PO (18:40)
[2024-08-03] MEDS: SODIUM CHLORIDE 0.9% FLUSH 10 ML IV (20:50)
[2024-08-04] VITALS: BP 110/54; PULSE 82; RESP 18; TEMP 35.9; O2SAT 96
--- NOTE | 2024-08-04 02:42 | PC.NURSE ---
Addendum entered by Naida Michaud R.N. 08/04/24 05:18: Dressing over right paracentesis site soaked with serous colored drainage and bed linens also soaked. Dressing removed and pressure dressing applied using ABD pad with Tegaderm over after skin cleansed. Original Note: Patient is alert and oriented. Breath sounds diminished and has history of restrictive lung disease related to scoliosis but has no dyspnea or SOB at time of assessment; is on oxygen at 3L/min per NC (uses 4L/min at baseline) with sat of 96% and is on continuous oximetry. HRR. Denied nausea. BT present; abdomen is large and round with ascited and has clear fluid leaking from right lower abdomen which she states is where paracentesis was performed earlier; allevyn dressing applied. Has allevyn dressing on left abdomen also which is presumed to be paracentesis site from when in ER. Is able to turn herself in bed. Gets up to BSC with 1 assist + walker. Wearing bilateral calf SCD's. Coccyx/buttocks are red, blanchable with no open areas noted so encouraged to lie on sides rather than back. Did complain of right sided abdominal pain and was medicated with oxycodone and been mostly sleeping since that time. Has 1+ edema in bilateral LE. Blood culture gram stain showing gm + cocci so is on contact isolation. Weight noted to be down 16 pounds related to abdominal paracentesis x2 with removal of 12.7 liters since arrival. Fall risk score is moderate and bed alarm is activated.
[2024-08-04 05:19] VITALS: BP 117/54; PULSE 90; RESP 18; TEMP 36.2; O2SAT 94
[2024-08-04] MEDS: METHYLPHENIDATE 5 MG TABLET 10 MG PO ×3 (05:50→18:42)
[2024-08-04] MEDS: OXYCODONE IR 10 MG TABLET PO ×4 (05:51→20:48)
[2024-08-04] MEDS: SODIUM CHLORIDE 0.9% 250 ML 21 ML IV (05:51)
[2024-08-04] MEDS: cefTRIAXone 1,000 MG in SODIUM CHLORIDE 0.9% 100 ML 200 MG IV (05:53)
[2024-08-04] MEDS: SODIUM CHLORIDE 0.9% FLUSH 10 ML IV ×3 (05:54→21:06)
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
[2024-08-04 08:49] VITALS: O2SAT 98
[2024-08-04] MEDS: CHOLECALCIFEROL (VITAMIN D3) 1,000 UNIT TABLET 2000 UNIT PO (09:50)
[2024-08-04] MEDS: SPIRONOLACTONE 25 MG TABLET 50 MG PO (09:50)
[2024-08-04] MEDS: GABAPENTIN 600 MG TABLET PO ×4 (09:50→20:48)
[2024-08-04] MEDS: TAMSULOSIN 0.4 MG CAPSULE PO (09:51)
[2024-08-04] MEDS: FUROSEMIDE 40 MG TABLET 20 MG PO (09:51)
[2024-08-04] MEDS: MULTIVITAMIN 1 TABLET 1 TAB PO (09:51)
[2024-08-04] MEDS: HEPARIN 5,000 UNIT/ML VIAL 5000 UNIT SUBCUT ×2 (09:52→20:48)
--- NOTE | 2024-08-04 11:02 | PT-IP ANOTE ---
PT consult received. PT reviewed chart and checked in on pt who is currently getting a midline. Con't PT efforts.
--- NOTE | 2024-08-04 11:04 | OT.IPNOTE ---
Pt getting mid line placed, to check on pt later for OT eval.
[2024-08-04 12:00] VITALS: BP 116/62; PULSE 105; RESP 16; TEMP 36; O2SAT 95
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
[2024-08-04 14:43] LABS: Add Manual Diff / Slide Review NO; Basophils Absolute Auto 100 /uL (0-100); Basophils Percent Auto 0.8 % (0-2); Eosinophils Absolute Auto 100 /uL (0-450); Eosinophils Percent Auto 1.1 % (2-4); Hematocrit 32.1 % (36-46); Hemoglobin 10.3 g/dL (12.0-16.0); Lymphocytes Absolute Auto 1600 /uL (1100-4500); Lymphocytes Percent Auto 15.5 % (25-40); Mean Corpuscular HGB Conc 32.1 % (30-36); Mean Corpuscular Hemoglobin 29.9 PG (26-34); Monocytes Absolute Auto 900 /uL (0-900); Monocytes Percent Auto 8.5 % (3-14); Neutrophils Absolute Auto 7800 /uL (1500-7000); Neutrophils Percent Auto 74.1 % (50-75); Platelet Count 223 X10^3/uL (150-400); Red Blood Cell Count 3.45 X10^6/uL (4.0-5.2); Red Cell Distribution Width 18.6 % (11.6-14.8); White Blood Cell Count 10.5 X10^3/uL (4.5-11.0)
[2024-08-04 14:55] LABS: Ammonia (NH3) < 9 umol/L (9-30)
[2024-08-04 14:57] LABS: Alanine Aminotransferase 22 IU/L (<35); Albumin 3.1 g/dL (3.5-5.0); Albumin Globulin Ratio 1.1 (1.0-2.8); Alkaline Phosphatase 37 U/L (38-126); Aspartate Aminotransferase 89 IU/L (14-36); Bilirubin Total 0.9 mg/dL (0.2-1.3); Blood Urea Nitrogen 16 mg/dL (7-17); Calcium 8.5 mg/dL (8.4-10.2); Chloride 89 mmol/L (98-107); Estimated Glomerular Filt Rate > 60 mL/min (>60); Globulin 2.7 g/dL (1.7-4.1); Glucose 177 mg/dL (80-110); Magnesium 1.9 mg/dL (1.6-2.3); Potassium 4.8 mmol/L (3.4-5.1); Sodium 129 mmol/L (137-145); Total Protein 5.8 g/dL (6.3-8.2)
[2024-08-04 15:00] LABS: HEMOLYSIS 132 (0-50)
[2024-08-04 15:03] LABS: Carbon Dioxide 40 mmol/L (22-32)
--- NOTE | 2024-08-04 15:18 | CM.DPC ---
DCP Cont. Reviewed EMR and team rounds for status updates. Per therapies, they are signing off. Pt is not wanting to work with therapies, and she does not have any skillable needs. Additionally, she does not have a home placement or long-term care to d/c to. Called [facility] to confirm when pt's Initial ONC appt is. Pt does not want to go to [facility], her referral is being processed at the [place] location. She also does not want to go to [facility], but is not able to process a decision. She wants to go into Section 8 housing, states that she's at the top of the list, however she would not have a cg and this is not realistic. Called and left a message for Arlyn Chang at [facility], not sure if that's where she's working out of, but this [employer] did leave a message in re: to pt needing urgent LTC instead of cont. with [facility], as she is unable to find a cg on [place]. She is hospice eligible, but this is also a barrier for home care hospice, unless she does get a LTC placement. Cancelled the referral to [facility]. Call Estefany at [facility] for time for [facility]C Consult, just to keep the spot: , notify son of time/date. Called pt's son, Elijah. Explained all of the above. Explained that until [facility] can process a LTC application, that pt will need to return home with him to [place] until this is available, and that she cannot go to rehab for housing until this is in place. Explained that ONC is likely going to be out 2-3 weeks for initial appt. He will call the [employer] desk on Thursday with what the family has come up with. Pt will likely be ready for d/c by Thursday or Thursday.
[2024-08-04] MEDS: BISACODYL 10 MG SUPP PR (16:34)
[2024-08-04] MEDS: LORazepam 0.5 MG TABLET PO (16:34)
--- NOTE | 2024-08-04 18:58 | PC.NURSE ---
LATE NOTE 1420 BLOOD DRAW WAS FROM A MIDLINE IN RUE, NOT A PICC LINE
[2024-08-04 19:59] VITALS: BP 120/62; PULSE 117; RESP 18; TEMP 36; O2SAT 95
[2024-08-04] MEDS: BACLOFEN 10 MG TABLET PO (21:01)
[2024-08-04] MEDS: ONDANSETRON 4 MG/2 ML INJ IV (22:36)
[2024-08-04] MEDS: ALBUTEROL 2.5 MG/3 ML NEB (ADULT) INH (22:54)
[2024-08-05] VITALS: BP 130/74; PULSE 89; RESP 19; TEMP 37; O2SAT 96
[2024-08-05] MEDS: OXYCODONE IR 10 MG TABLET PO ×5 (00:58→22:33)
[2024-08-05 01:36] LABS: Labcorp LDH, Body Fluid 229 IU/L (.); Labcorp Total Prot, Body Fluid 3.6 g/dL (.)
[2024-08-05 02:08] LABS: Labcorp Amylase, Body Fluid <3 U/L (.)
[2024-08-05 05:10] LABS: Labcorp Albumin, Body Fluid 2.3 g/dL (Not Estab.)
[2024-08-05] MEDS: cefTRIAXone 1,000 MG in SODIUM CHLORIDE 0.9% 100 ML 200 MG IV (06:38)
[2024-08-05 07:04] LABS: Add Manual Diff / Slide Review NO; Basophils Absolute Auto 100 /uL (0-100); Basophils Percent Auto 0.8 % (0-2); Eosinophils Absolute Auto 100 /uL (0-450); Eosinophils Percent Auto 1.4 % (2-4); Hematocrit 31.8 % (36-46); Hemoglobin 10.2 g/dL (12.0-16.0); Lymphocytes Absolute Auto 1600 /uL (1100-4500); Lymphocytes Percent Auto 16.2 % (25-40); Mean Corpuscular HGB Conc 32.2 % (30-36); Mean Corpuscular Hemoglobin 29.9 PG (26-34); Mean Corpuscular Volume 92.8 fL (80-100); Monocytes Absolute Auto 900 /uL (0-900); Monocytes Percent Auto 8.6 % (3-14); Neutrophils Absolute Auto 7200 /uL (1500-7000); Platelet Count 184 X10^3/uL (150-400); Red Blood Cell Count 3.42 X10^6/uL (4.0-5.2); Red Cell Distribution Width 18.1 % (11.6-14.8); White Blood Cell Count 9.9 X10^3/uL (4.5-11.0)
[2024-08-05 07:15] LABS: Alanine Aminotransferase 19 IU/L (<35); Albumin 2.9 g/dL (3.5-5.0); Albumin Globulin Ratio 1.1 (1.0-2.8); Alkaline Phosphatase 56 U/L (38-126); Aspartate Aminotransferase 62 IU/L (14-36); BUN Creatinine Ratio 31.6 (6-22); Bilirubin Total 0.7 mg/dL (0.2-1.3); Blood Urea Nitrogen 12 mg/dL (7-17); Calcium 8.9 mg/dL (8.4-10.2); Chloride 91 mmol/L (98-107); Estimated Glomerular Filt Rate > 60 mL/min (>60); Globulin 2.6 g/dL (1.7-4.1); Glucose 150 mg/dL (80-110); HEMOLYSIS 16 (0-50); Potassium 4.2 mmol/L (3.4-5.1); Sodium 130 mmol/L (137-145); Total Protein 5.5 g/dL (6.3-8.2)
[2024-08-05 07:34] LABS: Carbon Dioxide 37 mmol/L (22-32)
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
[2024-08-05] MEDS: GABAPENTIN 600 MG TABLET PO ×4 (10:04→20:21)
[2024-08-05] MEDS: FUROSEMIDE 40 MG TABLET 20 MG PO (10:05)
[2024-08-05] MEDS: TAMSULOSIN 0.4 MG CAPSULE PO (10:06)
[2024-08-05] MEDS: CHOLECALCIFEROL (VITAMIN D3) 1,000 UNIT TABLET 2000 UNIT PO (10:06)
[2024-08-05] MEDS: MULTIVITAMIN 1 TABLET 1 TAB PO (10:07)
[2024-08-05] MEDS: HEPARIN 5,000 UNIT/ML VIAL 5000 UNIT SUBCUT ×2 (10:08→20:21)
[2024-08-05] MEDS: SODIUM CHLORIDE 0.9% FLUSH 10 ML IV ×2 (10:21→20:22)
[2024-08-05] MEDS: SPIRONOLACTONE 25 MG TABLET 50 MG PO (10:22)
[2024-08-05] MEDS: METHYLPHENIDATE 5 MG TABLET 10 MG PO ×3 (10:30→18:12)
[2024-08-05 12:00] VITALS: BP 106/56; PULSE 96; RESP 18; TEMP 36; O2SAT 97
--- NOTE | 2024-08-05 14:32 | OT.IPNOTE ---
Pt main barrier is placement at this time. Pt will need more assist as her diagnosis -pancreatic CA progresses. Pt will benefit from / available assist when medically stable vs GROUP HOME, LTC.
--- NOTE | 2024-08-05 16:11 | CM.DPNOTE ---
DCP Cont Reviewed chart. Placed call to three contacts listed on chart to discuss next steps. Spoke with patient's [facility] CM September Bernardo José [phone] who explained that if patient is discharged home, September will prioritize patient's reassessment within the week of patient returning home; with the intent of increasing hours. Unfortunately, caregiver availability on [facility] remains limited. Arlyn is hopeful that patient will soon transition to facility placement eventually and would transition patient's case to home and community services if this was the plan. Updated September that this CM team is ruling out SNF as an option before patient is discharged home, or otherwise, and that CM team can keep in contact with September for collaboration. Sent referral to [facility], referral declined. Sent referral to [facility]- no admissions over the weekend and case is still under review by the administrators. CNO worried about meeting the needs of patient as she is still requiring paracentesis every few days and would need to be transferred back/forth to the ER for this procedure. [facility] interested in Rehab--->LTC [facility] placement if patient will consider this. CM team following closely. Ongoing planning needed with patient and family. Provider updated with summary of above. JOYCELYN
[2024-08-05 18:00] VITALS: BP 117/70; PULSE 104; RESP 16; TEMP 35.8; O2SAT 93
[2024-08-05 19:00] VITALS: BP 96/54; PULSE 99; RESP 20; TEMP 36; O2SAT 95
[2024-08-05] MEDS: BACLOFEN 10 MG TABLET PO (20:48)
[2024-08-05 23:48] VITALS: O2SAT 95
[2024-08-06] VITALS (8 sets, daily range): BP systolic 94–122; BP diastolic 43–56; PULSE 63–105; RESP 16–20; TEMP 35.8–36.4; O2SAT 94–100
[2024-08-06] MEDS: ALBUTEROL 2.5 MG/3 ML NEB (ADULT) INH ×2 (00:15→09:50)
--- NOTE | 2024-08-06 01:23 | PC.NURSE ---
R side of abd leaking clear, yellow fluid. Dressing changed x3 since 1899. Applied 4x4 gauze, abd pad to area.
[2024-08-06] MEDS: LORazepam 0.5 MG TABLET PO (01:33)
[2024-08-06] MEDS: cefTRIAXone 1,000 MG in SODIUM CHLORIDE 0.9% 100 ML 200 MG IV (06:11)
[2024-08-06] MEDS: METHYLPHENIDATE 5 MG TABLET 10 MG PO ×3 (06:11→20:49)
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
[2024-08-06] MEDS: OXYCODONE IR 5 MG TABLET PO (07:36)
[2024-08-06 08:19] LABS: Add Manual Diff / Slide Review NO; Basophils Absolute Auto 100 /uL (0-100); Eosinophils Absolute Auto 200 /uL (0-450); Eosinophils Percent Auto 1.3 % (2-4); Hematocrit 33.8 % (36-46); Hemoglobin 10.7 g/dL (12.0-16.0); Lymphocytes Absolute Auto 1600 /uL (1100-4500); Lymphocytes Percent Auto 14.2 % (25-40); Mean Corpuscular HGB Conc 31.6 % (30-36); Mean Corpuscular Hemoglobin 29.3 PG (26-34); Mean Corpuscular Volume 92.9 fL (80-100); Monocytes Absolute Auto 1100 /uL (0-900); Monocytes Percent Auto 9.3 % (3-14); Neutrophils Absolute Auto 8600 /uL (1500-7000); Neutrophils Percent Auto 74.2 % (50-75); Platelet Count 172 X10^3/uL (150-400); Red Blood Cell Count 3.64 X10^6/uL (4.0-5.2); Red Cell Distribution Width 18.2 % (11.6-14.8); White Blood Cell Count 11.6 X10^3/uL (4.5-11.0)
[2024-08-06] MEDS: FUROSEMIDE 40 MG TABLET 20 MG PO (08:25)
[2024-08-06] MEDS: MULTIVITAMIN 1 TABLET 1 TAB PO (08:25)
[2024-08-06] MEDS: CHOLECALCIFEROL (VITAMIN D3) 1,000 UNIT TABLET 2000 UNIT PO (08:25)
[2024-08-06] MEDS: SPIRONOLACTONE 25 MG TABLET 50 MG PO (08:25)
[2024-08-06] MEDS: GABAPENTIN 600 MG TABLET PO ×4 (08:25→20:50)
[2024-08-06] MEDS: TAMSULOSIN 0.4 MG CAPSULE PO (08:25)
[2024-08-06] MEDS: HEPARIN 5,000 UNIT/ML VIAL 5000 UNIT SUBCUT ×2 (08:26→20:52)
[2024-08-06 08:29] LABS: Alanine Aminotransferase 23 IU/L (<35); Albumin 3.1 g/dL (3.5-5.0); Albumin Globulin Ratio 1.1 (1.0-2.8); Alkaline Phosphatase 57 U/L (38-126); Aspartate Aminotransferase 56 IU/L (14-36); BUN Creatinine Ratio 28.6 (6-22); Bilirubin Total 0.9 mg/dL (0.2-1.3); Blood Urea Nitrogen 10 mg/dL (7-17); Calcium 9.4 mg/dL (8.4-10.2); Chloride 90 mmol/L (98-107); Estimated Glomerular Filt Rate > 60 mL/min (>60); Globulin 2.8 g/dL (1.7-4.1); Glucose 146 mg/dL (80-110); HEMOLYSIS 37 (0-50); Magnesium 2.1 mg/dL (1.6-2.3); Potassium 5.2 mmol/L (3.4-5.1); Sodium 130 mmol/L (137-145); Total Protein 5.9 g/dL (6.3-8.2)
[2024-08-06 08:36] LABS: Carbon Dioxide 36 mmol/L (22-32)
[2024-08-06] MEDS: OXYCODONE IR 10 MG TABLET PO ×3 (10:22→20:50)
--- NOTE | 2024-08-06 14:52 | CM.DPC ---
DCP Cont: Per MD, pt likely to have another paracentesis bedside either today or tomorrow and getting close to being medically stable to discharge the hospital. Per PT, pt more fpc care rather than SNF rehab skillable at this time and capable of ambulation with a walker but recommending 24/7 at d/c due to ADL assist. Currently [facility] reviewing but will not have an answer until Thursday (today Sat) to determine if they could accept knowing pt likely would convert into need for LTC under her Medicaid. [facility] and [facility] have declined. Pt already with [facility] September as she was approved for [facility] CG hours but no identified CG available on [facility] at this time. SW met bedside with pt, her support person Meena Flores ([facility] Psych provider), and MD Dr. Arroyo and answered some of pt's medical questions and then discussed discharge planning needs and barriers. Pt acknowledged needing more assist than is an option at home on [place] at this time and discussed barriers to SNF rehab under Medicare but ongoing attempts. Meena strongly supported LTC option, with preference of SNF for medical needs, but discussed [facility] and [facility] as well. Pt somewhat agreeable to LTC at a facility at this time but hesitant about being away from her family on [place] and giving up all my social security for LTC and her storage unit. SW explained the process of attempting LTC through Medicaid and switching to the Acute Hospital Team through [facility]. , DEB Robledo, and SW discussed the importance of medical POA and Advanced Directives at this time with pt and she continues to be FUll Code and not yet agreeable to complete POA or Advanced Directives and Meena will continue encouraging the pt and discussing her concerns. Plan: SW to follow up with [facility] Thursday to determine if they can accept and then begin the process of switching pt's [facility] CM to an Acute Hospital LTC team through [facility]. KAREN Gaspar
--- NOTE | 2024-08-06 15:00 | PT-IP ANOTE ---
PT eval received. pt was just evaluated 08/04/24. talked to hospitalist regarding PT eval order and stated that the nurse requested PT and to talk to the nurse. talked to the nurse and stated that the pt is wanting to do PT. per [facility], pt is SBA with mobility with them depending if pt is willing to move or not. checked on pt. pt with her psychiatric doctor in room. This PT informed pt regarding PT eval order received and last PT eval that was completed 08/04/24. informed pt that from last PT eval, she needed CGA with transfers and able to take steps using FWW CGA. and due to the progressive nature of her CA, she will need assistance. Pt stated that she needs help with toileting and pulling her brief due to her ascites and she cannnot go home. informed pt that PT understood this, that is why she is going to need assistance whatever d/c disposition they were able to secure for her. pt stated that the case packer Asya told her that she cannot go to [facility] and should just go home but pt stated that she needs assist and will not have much assist at home. pt with dx metastatic pancreatic CA and requiring CGA with transfers using FWW. able to take steps using FWW CGA. Pt will require assistance due to progressive nature of the disease with requiring frequent paracentesis due to her ascites cause by the CA. per case packer, there is difficulty with d/c with pt due to facilities available to do paracentesis and not due to the level of assistance needed. Explained to pt regarding this matter and will let case packer talk to her again regarding d/c plans. informed pt that PT will d/c current eval order and encouraged pt to mobilize with nursing staff as much as possible. pt's psychiatric doctor also explained all these to pt. pt understood. informed advertising traffic manager Kiah regarding interaction with pt and psychiatric doctor and case packer will go talk to pt in a few minutes. will d/c PT eval order.
[2024-08-06] MEDS: SODIUM CHLORIDE 0.9% FLUSH 10 ML IV (21:00)
--- NOTE | 2024-08-06 23:00 | PC.NURSE ---
Pt blood sugar 237. Pt asking for ice cream and refusing any insulin injections
[2024-08-07] VITALS (7 sets, daily range): BP systolic 100–127; BP diastolic 43–75; PULSE 75–103; RESP 16–20; TEMP 35.9–36.2; O2SAT 95–100
[2024-08-07] MEDS: BACLOFEN 10 MG TABLET PO (01:21)
[2024-08-07] MEDS: OXYCODONE IR 10 MG TABLET PO ×5 (02:09→21:34)
[2024-08-07 05:37] LABS: BUN Creatinine Ratio 24.5 (6-22); Blood Urea Nitrogen 13 mg/dL (7-17); Calcium 9.2 mg/dL (8.4-10.2); Carbon Dioxide 39 mmol/L (22-32); Chloride 89 mmol/L (98-107); Estimated Glomerular Filt Rate > 60 mL/min (>60); Glucose 178 mg/dL (80-110); HEMOLYSIS < 15 (0-50); Potassium 4.4 mmol/L (3.4-5.1); Sodium 128 mmol/L (137-145)
[2024-08-07] MEDS: METHYLPHENIDATE 5 MG TABLET 10 MG PO ×3 (06:53→18:23)
[2024-08-07] MEDS: cefTRIAXone 1,000 MG in SODIUM CHLORIDE 0.9% 100 ML 200 MG IV (06:54)
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
[2024-08-07] MEDS: TAMSULOSIN 0.4 MG CAPSULE PO (09:02)
[2024-08-07] MEDS: GABAPENTIN 600 MG TABLET PO ×4 (09:02→21:34)
[2024-08-07] MEDS: CHOLECALCIFEROL (VITAMIN D3) 1,000 UNIT TABLET 2000 UNIT PO (09:02)
[2024-08-07] MEDS: MULTIVITAMIN 1 TABLET 1 TAB PO (09:02)
[2024-08-07] MEDS: SPIRONOLACTONE 25 MG TABLET 50 MG PO (09:02)
[2024-08-07] MEDS: FUROSEMIDE 40 MG TABLET 20 MG PO (09:02)
[2024-08-07] MEDS: PANTOPRAZOLE DR 20 MG TABLET PO (09:03)
[2024-08-07] MEDS: SODIUM CHLORIDE 0.9% FLUSH 10 ML IV ×2 (09:56→21:41)
[2024-08-07] MEDS: HEPARIN 5,000 UNIT/ML VIAL 5000 UNIT SUBCUT ×2 (09:56→21:35)
[2024-08-07] MEDS: ONDANSETRON 4 MG/2 ML INJ IV (14:21)
[2024-08-07] MEDS: HYDROMORPHONE 1 MG INJ IV (15:20)
[2024-08-07] MEDS: LIDOCAINE 1% 20 ML 3 ML SUBCUT (15:34)
--- NOTE | 2024-08-07 16:32 | PM.PROC.1 ---
Procedures Date/Time Date of procedure: 08/07/24 Time of procedure: 15:30 General Procedure description: Paracentesis Paracentesis Time out performed: Yes Indication: Ascites Procedure: therapeutic paracentesis Location: LLQ Local anesthetic used: lidocaine 1% Amount of anesthesia used (ml): 2 Bedside ultrasound used: yes, Ascites confirmed and location marked Preparation: 11 blade used to make hawa in skin Amount of fluid obtained (ml): 7,000 Fluid: clear Size of needle used: 20 Post procedure exam: awake, alert, normal BP, normal HR and normal SpO2 Patient tolerated procedure: well Complications: none Additional comments: Verbal informed consent obtained.
[2024-08-07] MEDS: EMPAGLIFLOZIN 10 MG 20 EACH PO (16:34)
[2024-08-07] MEDS: HYDROMORPHONE 0.5 MG INJ IV (16:48)
[2024-08-07] MEDS: ALBUMIN HUMAN 25 GM/100 ML VIAL IV (17:14)
--- NOTE | 2024-08-07 17:23 | PC.NURSE ---
Pt A&Ox3, unsure of date. Vitals WDL, oxygen 96% on 2L NC. Ambulating to BR SBA w/ FWW. Pt periodically tearful, stating she isn't sure of why she is tearful. Midline difficult to flush, occluded, removed and was kinked. New IV started. C/o abdominal cramping and constipation. Prune juice provided, prunes provided, declining other measures. Pt insists on wearing gloves to wipe self. Vitals WDL before paracentesis. BP 100/47, provider notified, new orders received. ABD pad to L abdomen d/t post-paracentesis drainage. Care ongoing.
--- NOTE | 2024-08-08 00:24 | PC.NURSE ---
Addendum entered by Maggie Werner R.N. 08/08/24 05:39: 0530: Pt refused to void with hat in the toilet; educated pt on MD orders for I&O measurement. Pt took hat out of the toilet and threw it into the shower, continued to decline hat. After 1 unmeasured void, this RN and PCT Juan Palm helped pt back to bed. Patient resting comfortably, belongings within reach, bed alarm on, plan of care continues. Original Note: NOC: PCT Terri reported pt was difficult to rouse for shift vitals. Upon entry to pt room, pt was deeply asleep, with food in her mouth and head leaning to the left. Pt not responsive to voice, touch, or pain (sternal rub, shoulder pinch). Pulse oximeter showed HR and SpO2 within normal limits, carotid pulse intact/strong. Informed Coordinator Loyda Trivedi RN and Rain BOTTOM TURNING LATHE TENDER; was able to rouse patient to voice and pain on second attempt. Pt A&Ox3, VSWNL, awake & alert but expressed annoyance at being awakened. Pt instructed not to continue eating dinner if unable to stay awake, pt stated understanding. Pt insistent on drinking (regular) water out of sterile H2O bottle on table; labeled bottle with pt name. 2300: Dressings on pt paracentesis sites soaked with serous exudate. Removed previous dressings and replaced with same materials (ABD pads and cloth tape). No bruising or erythema present. Allevyn dressing to lower left abdomen intact. Abdomen remains large, round, and distended. Pt resting comfortably, call light & cellphone within reach, bed alarm on, bed low/locked. Plan of care continues.
[2024-08-08] MEDS: BACLOFEN 10 MG TABLET PO (00:37)
[2024-08-08] MEDS: OXYCODONE IR 10 MG TABLET PO ×5 (01:01→20:24)
[2024-08-08 04:00] VITALS: BP 115/51; PULSE 89; RESP 16; TEMP 36.1; O2SAT 98
[2024-08-08 04:15] VITALS: BP 103/50
[2024-08-08] MEDS: METHYLPHENIDATE 5 MG TABLET 10 MG PO ×3 (05:27→18:21)
[2024-08-08] MEDS: cefTRIAXone 1,000 MG in SODIUM CHLORIDE 0.9% 100 ML 200 MG IV (05:28)
[2024-08-08 08:00] VITALS: BP 116/41; PULSE 95; RESP 17; TEMP 36.2; O2SAT 95
[2024-08-08] MEDS: PANTOPRAZOLE DR 20 MG TABLET PO (08:49)
[2024-08-08] MEDS: SPIRONOLACTONE 25 MG TABLET 50 MG PO (08:52)
[2024-08-08] MEDS: FUROSEMIDE 40 MG TABLET 20 MG PO (08:52)
[2024-08-08] MEDS: CHOLECALCIFEROL (VITAMIN D3) 1,000 UNIT TABLET 2000 UNIT PO (08:52)
[2024-08-08] MEDS: TAMSULOSIN 0.4 MG CAPSULE PO (08:52)
[2024-08-08] MEDS: GABAPENTIN 600 MG TABLET PO ×4 (08:52→20:23)
[2024-08-08] MEDS: MULTIVITAMIN 1 TABLET 1 TAB PO (08:52)
[2024-08-08] MEDS: HEPARIN 5,000 UNIT/ML VIAL 5000 UNIT SUBCUT ×2 (08:53→20:23)
[2024-08-08] MEDS: SODIUM CHLORIDE 0.9% FLUSH 10 ML IV ×2 (09:45→20:25)
[2024-08-08 10:12] VITALS: O2SAT 95
[2024-08-08] MEDS: EMPAGLIFLOZIN 10 MG 20 EACH PO (16:09)
--- NOTE | 2024-08-08 16:36 | CM.DPNOTE ---
DCP Note AVICULTURIST reviewed EMR per provider, medically stable for SNF dc at this time. preference from his perspective if pt were to dc to [facility] she was at before so she's closer to her OP providers. AVICULTURIST spoke with [facility] admissions at [facility] at prior to admission at . (p [phone] f [phone]), agreed to review. AVICULTURIST faxed initial clinical information. Called back x3 in afternoon did not hear back if pt was able to be accepted as of 1629. AVICULTURIST spoke with Laura at [facility], able to accept. have COVID pos in building but they are under iso protocols. can accept Tues/whenever this week. from Val[facility] at [facility], son Silvio had called about services/questions two weeks ago. tentatively follow, AVICULTURIST team will update W team at [place] if pt were to dc to SNF. From September, [facility] P [phone]., will plan to switch pt to [facility] LTC team, want to know where pt gets accepted before officially switching so she knows where to send that team. update her as needed. Spoke with pt multiple times in room along with two different pastors she's close with (Roshan and Radha) and Contreras Rubalcava. Pt denies wanting to go to [facility] at this time, report God told her not to. [facility] dc [facility]. does not seem to understand that if another facility cannot accept pt [facility] would be her only choice for SNF. concerned about having contact with pastors she likes/trusts. Per Contreras, long hx of pastors meeting with people at [facility]. Pt plans to call [facility] herself to see what she can do about being accepted there. AVICULTURIST had lengthy phone conversation with son Silvio ([phone]) about the DCP. silvio reports his preference for the DC for his mom is for her to go someplace safe and where she would be comfortable. preference is to remain in [place] or [facility]. Silvio reports he cannot care for her at home. Silvio reports verbal understanding that if pt is refusing only option for SNF dc that he would have to take her home, he just requests a days notice so he can arrange to ferry over to come get her. Silvio reprots open to [facility]/working with [facility] September to increase care at home. P: [facility] vs home with son/[facility]/increased LANDY. need ot cancel [facility]. coordinate with [facility] Psych provider Meena as needed. pt would benefit from completion of POA/Advance directive ppwk. PASRR previously completed. CM team will continue to follow closely KAREN Milligan
[2024-08-08 17:00] VITALS: BP 127/56; PULSE 82; RESP 18; TEMP 36.2; O2SAT 99
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
[2024-08-08 20:00] VITALS: BP 106/51; PULSE 86; RESP 12; TEMP 36.1; O2SAT 99
[2024-08-09] MEDS: OXYCODONE IR 10 MG TABLET PO ×6 (00:36→21:49)
[2024-08-09 02:00] VITALS: BP 106/46; PULSE 83; RESP 16; TEMP 36.2; O2SAT 99
[2024-08-09 05:40] LABS: Add Manual Diff / Slide Review NO; Basophils Absolute Auto 100 /uL (0-100); Basophils Percent Auto 1.3 % (0-2); Eosinophils Absolute Auto 100 /uL (0-450); Eosinophils Percent Auto 1.2 % (2-4); Hemoglobin 10.2 g/dL (12.0-16.0); Lymphocytes Absolute Auto 1700 /uL (1100-4500); Lymphocytes Percent Auto 14.8 % (25-40); Mean Corpuscular Volume 93.7 fL (80-100); Monocytes Absolute Auto 1300 /uL (0-900); Monocytes Percent Auto 11.3 % (3-14); Neutrophils Absolute Auto 8000 /uL (1500-7000); Neutrophils Percent Auto 71.4 % (50-75); Platelet Count 231 X10^3/uL (150-400); Red Blood Cell Count 3.41 X10^6/uL (4.0-5.2); Red Cell Distribution Width 18.3 % (11.6-14.8); White Blood Cell Count 11.2 X10^3/uL (4.5-11.0)
[2024-08-09 05:55] LABS: BUN Creatinine Ratio 27.8 (6-22); Blood Urea Nitrogen 10 mg/dL (7-17); Calcium 8.9 mg/dL (8.4-10.2); Carbon Dioxide 36 mmol/L (22-32); Chloride 88 mmol/L (98-107); Estimated Glomerular Filt Rate > 60 mL/min (>60); Glucose 79 mg/dL (80-110); HEMOLYSIS 46 (0-50); Potassium 4.2 mmol/L (3.4-5.1); Sodium 128 mmol/L (137-145)
[2024-08-09] MEDS: METHYLPHENIDATE 5 MG TABLET 10 MG PO ×3 (06:01→18:03)
[2024-08-09] MEDS: MULTIVITAMIN 1 TABLET 1 TAB PO (09:01)
[2024-08-09] MEDS: GABAPENTIN 600 MG TABLET PO ×4 (09:01→21:43)
[2024-08-09] MEDS: PANTOPRAZOLE DR 20 MG TABLET PO (09:01)
[2024-08-09] MEDS: SPIRONOLACTONE 25 MG TABLET 50 MG PO (09:01)
[2024-08-09] MEDS: CEFDINIR 300 MG CAPSULE PO ×2 (09:01→21:43)
[2024-08-09] MEDS: HEPARIN 5,000 UNIT/ML VIAL 5000 UNIT SUBCUT ×2 (09:02→21:43)
[2024-08-09] MEDS: CHOLECALCIFEROL (VITAMIN D3) 1,000 UNIT TABLET 2000 UNIT PO (09:02)
[2024-08-09] MEDS: FUROSEMIDE 40 MG TABLET PO (09:02)
[2024-08-09] MEDS: TAMSULOSIN 0.4 MG CAPSULE PO (09:02)
[2024-08-09] MEDS: SODIUM CHLORIDE 0.9% FLUSH 10 ML IV ×2 (09:06→21:44)
[2024-08-09 12:00] VITALS: BP 96/49; PULSE 68; RESP 15; TEMP 36; O2SAT 96
--- NOTE | 2024-08-09 14:08 | PC.NURSE ---
Addendum entered by Mecca Martinez R.N. 08/09/24 18:36: 1600 [place] [facility] [place]bm-reassessed Pt's bottom and took a picture for her chart. Her coccyx area appears to have had a prior skin injury-discoloration visible with what appears to be a scar line. Applied an Allevyn dsg to provide padding and skin protection. Pt again refused waffle cushion or bridging and stated she just wants to pull her butt cheeks open -again reminded Pt that that could potentially cause further injury due to contact with the bed without bridging and Pt again refused padding or cushioning of any kind under her bottom but did agree to 1 pillow under her right leg but not her left. 1831 Pt stated she was having 7/10 to her abdomen-medicated with Oxycodone 10mg per request. Reassessed at 180 and Pt stated she now had 8/10 pain but declined any other pain meds, repositioning, or treatment and in fact, asked to be left alone. Original Note: Repositioned Pt in bed for greater comfort and to off-load bottom. Inspected Pt's bottom and found reddened skin that was intact and blanchable. Pt refused to use the waffle cushion but allowed us to bridge her with pillows and float the left leg but refused a pillow to float the right leg. Discussed pain control with Pt-Pt states pain to her abdomen is 7/10 and is somewhat constant despite Oxycodone 10mg being given and when offered something stronger for her pain (she has Hydromorphone available) states she does not want anything stronger or anything else.FLACC scale places Pt with a 0/10.
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
--- NOTE | 2024-08-09 15:41 | CM.DPNOTE ---
DCP note AUDIO/VIDEO ENGINEER reviewed EMR Per provider, continue to rec pt dc to SNF in [place] to be closer to OP providers if possible. AUDIO/VIDEO ENGINEER faxed updated clinicals to [facility] first thing in am. (p [phone] f [phone]), called intake Thu multiple times throughout day, no response until 1430. Thu reports they are still reviewing, (p [phone]) but will call with final updates. AUDIO/VIDEO ENGINEER lvm with LANDY RUFF September P [phone]. AUDIO/VIDEO ENGINEER met with LANDY Assistant Secretary Daniela Taylor ([phone], [email or web address]) reports she's worked with pt for past 10 years and have attempted to assist in coordinating her care for her. will help with DCP as possible. From Laura at [facility], confirm can still accept if pt decides okay with potential COVID exposure. AUDIO/VIDEO ENGINEER met with pt in room. Pt in a much calmer mood today than yesterday. continues to refuse to complete DPOA/Advance directive ppwk. continues to report preference is to dc to [facility] but more open to [facility] today. reports she would likely need Medicaid transport to [facility]. reports her main concern at this point is her belongings/her sheet music. Asked son via speakerphone to come from [employer] to bring her stuff, son reports he will try. pt denies other questions at this time. P: [facility] vs [facility] vs home with son/[facility]/increased LANDY. need ot cancel HNW. coordinate with RN PERINATAL Psych provider Meena/LANDY September/LANDY Suarez as needed. pt would benefit from completion of POA/Advance directive ppwk. PASRR previously completed. CM team will continue to follow closely KAREN Milligan
[2024-08-09] MEDS: EMPAGLIFLOZIN 10 MG 20 EACH PO (15:58)
--- NOTE | 2024-08-09 16:27 | PC.WOUNDPHOT ---
Photo taken by Mecca JUNIOR.
[2024-08-09 18:00] VITALS: BP 108/50; PULSE 93; RESP 14; TEMP 36.4; O2SAT 99
[2024-08-09 20:00] VITALS: BP 110/63; PULSE 91; RESP 21; TEMP 36.4; O2SAT 96
[2024-08-09 20:29] VITALS: PULSE 92; O2SAT 95
[2024-08-09] MEDS: BACLOFEN 10 MG TABLET PO (21:43)
[2024-08-10] VITALS: BP 118/73; PULSE 72; RESP 18; TEMP 36.8; O2SAT 96
[2024-08-10] MEDS: HYDROMORPHONE 1 MG INJ IV ×2 (00:06→13:18)
[2024-08-10] MEDS: ONDANSETRON 4 MG/2 ML INJ IV ×2 (02:23→14:08)
[2024-08-10] MEDS: OXYCODONE IR 10 MG TABLET PO ×3 (02:23→11:20)
[2024-08-10 06:00] VITALS: BP 122/72; PULSE 78; RESP 22; TEMP 36.6; O2SAT 96
[2024-08-10] MEDS: METHYLPHENIDATE 5 MG TABLET 10 MG PO ×2 (06:34→13:04)
[2024-08-10 06:42] LABS: Add Manual Diff / Slide Review NO; Basophils Absolute Auto 100 /uL (0-100); Basophils Percent Auto 1.1 % (0-2); Eosinophils Absolute Auto 100 /uL (0-450); Eosinophils Percent Auto 0.9 % (2-4); Hematocrit 33.1 % (36-46); Hemoglobin 10.6 g/dL (12.0-16.0); Lymphocytes Absolute Auto 1400 /uL (1100-4500); Lymphocytes Percent Auto 12.4 % (25-40); Mean Corpuscular Hemoglobin 29.9 PG (26-34); Mean Corpuscular Volume 93.2 fL (80-100); Monocytes Absolute Auto 1300 /uL (0-900); Monocytes Percent Auto 11.5 % (3-14); Neutrophils Absolute Auto 8600 /uL (1500-7000); Neutrophils Percent Auto 74.1 % (50-75); Platelet Count 266 X10^3/uL (150-400); Red Blood Cell Count 3.55 X10^6/uL (4.0-5.2); Red Cell Distribution Width 18.4 % (11.6-14.8); White Blood Cell Count 11.7 X10^3/uL (4.5-11.0)
[2024-08-10 06:58] LABS: BUN Creatinine Ratio 31.7 (6-22); Blood Urea Nitrogen 13 mg/dL (7-17); Calcium 8.7 mg/dL (8.4-10.2); Chloride 87 mmol/L (98-107); Estimated Glomerular Filt Rate > 60 mL/min (>60); Glucose 144 mg/dL (80-110); Potassium 4.4 mmol/L (3.4-5.1); Sodium 127 mmol/L (137-145)
[2024-08-10 07:05] LABS: Carbon Dioxide 37 mmol/L (22-32); HEMOLYSIS 39 (0-50)
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
[2024-08-10 08:00] VITALS: BP 113/51; PULSE 92; RESP 18; TEMP 36.1; O2SAT 97
[2024-08-10] MEDS: PANTOPRAZOLE DR 20 MG TABLET PO (08:25)
[2024-08-10] MEDS: TAMSULOSIN 0.4 MG CAPSULE PO (08:25)
[2024-08-10] MEDS: CEFDINIR 300 MG CAPSULE PO (08:25)
[2024-08-10] MEDS: HEPARIN 5,000 UNIT/ML VIAL 5000 UNIT SUBCUT (08:25)
[2024-08-10] MEDS: MULTIVITAMIN 1 TABLET 1 TAB PO (08:26)
[2024-08-10] MEDS: FUROSEMIDE 40 MG TABLET PO (08:26)
[2024-08-10] MEDS: CHOLECALCIFEROL (VITAMIN D3) 1,000 UNIT TABLET 2000 UNIT PO (08:26)
[2024-08-10] MEDS: SPIRONOLACTONE 25 MG TABLET 50 MG PO (08:26)
[2024-08-10] MEDS: GABAPENTIN 600 MG TABLET PO ×2 (08:26→13:04)
[2024-08-10] MEDS: SODIUM CHLORIDE 0.9% FLUSH 10 ML IV (08:27)
[2024-08-10] MEDS: ALBUMIN HUMAN 25 GM/100 ML VIAL IV (13:19)
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
--- NOTE | 2024-08-10 14:03 | PC.NURSE ---
Addendum entered by Shyanne Shaw R.N. 08/10/24 14:47: Called [facility] again and was able to give report to Nyla JUNIOR. Pt's IV removed and belongings given to S personnel. Pt has exited the facility. Original Note: D/c packet assembled and given to S personnel. This RN has attempted to call [facility] three times as of 1401, and no one has answered, so unable to give report.
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
== END 2024-08-10 14:52 | DRG 853 ==
LOC: ED 08-02 06:00 → AC 08-02 06:01
PROVIDERS: Emergency Medicine; Internal Medicine; Urology; Admitting Provider Internal Medicine; Emergency Provider Emergency Medicine; PCP Family Medicine; Referring Provider Emergency Medicine; Visit Provider Internal Medicine
PROC: 0T768DZ Dilation of Right Ureter with Intraluminal Device, Via Natural or Artificial Opening Endoscopic (ICD-10-PCS; principal; 2024-08-02 12:00)
DX: A41.9 Sepsis, unspecified organism (principal); G93.41 Metabolic encephalopathy; C25.9 Malignant neoplasm of pancreas, unspecified; C78.7 Secondary malignant neoplasm of liver and intrahepatic bile duct; C78.6 Secondary malignant neoplasm of retroperitoneum and peritoneum; N13.2 Hydronephrosis with renal and ureteral calculous obstruction; N30.00 Acute cystitis without hematuria; J96.11 Chronic respiratory failure with hypoxia; R18.0 Malignant ascites; J98.4 Other disorders of lung; M41.9 Scoliosis, unspecified; I25.10 Atherosclerotic heart disease of native coronary artery without angina pectoris; K21.9 Gastro-esophageal reflux disease without esophagitis; E11.9 Type 2 diabetes mellitus without complications; F90.9 Attention-deficit hyperactivity disorder, unspecified type; I10 Essential (primary) hypertension; I48.91 Unspecified atrial fibrillation; M81.0 Age-related osteoporosis without current pathological fracture; G47.33 Obstructive sleep apnea (adult) (pediatric); Z79.84 Long term (current) use of oral hypoglycemic drugs; Z87.891 Personal history of nicotine dependence; Z99.81 Dependence on supplemental oxygen; Z86.73 Personal history of transient ischemic attack (TIA), and cerebral infarction without residual deficits
CPT/HCPCS: 36415; 36592; 71275; 74019; 74177; 76000; 76705; 80048; 80053; 81003; 81015; 82040; 82140; 82150; 82962; 83605; 83615; 83690; 83735; 84157; 85025; 85610; 85730; 87040; 87070; 87075; 87077; 87086; 87154; 87205; 89051; 93005; 94640; 96365; 96366; 96367; 96375; 97161; 97166; 97530; 97535; 99285; C2617; J0696; J1100; J1171; J1642; J1644; J2405; J2704; J3010; J3490; J7613; P9041; Q9967

== ENCOUNTER 2024-08-22 13:05 | Emergency (ER) | payer MEDICARE, MEDICAID, SELFPAY ==
[2024-08-02 08:06] VITALS: BMI 45.3
[2024-08-22] VITALS (16 sets, daily range): BP systolic 105–153; BP diastolic 58–78; PULSE 66–108; RESP 16; TEMP 37–37.3; O2SAT 91–100
--- NOTE | 2024-08-22 13:48 | PC.NURSE ---
Pt has large decubitus ulcer to sacrum. Photos taken.
[2024-08-22 16:41] LABS: Bacteria Urine None Seen; Culture Indicated Urine Specimen Cultured; RBC Urine 0-1/HPF (0-5/HPF); Squamous Epithelial Cell Urine 1-5 /HPF (0-5/HPF); Urine Volume 10mL (spun); WBC Urine 30-100/HPF (0-5/HPF)
--- NOTE | 2024-08-22 16:49 | PC.NURSE ---
Pt reports that she is in a lot of pain. aware.
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
--- NOTE | 2024-08-22 17:18 | DI.CT.S_ITS ---
PROCEDURE: CT KIDNEY URETER BLADDER (KUB) INDICATIONS: suprapubic pain, had recent ureteral stent TECHNIQUE: Axial sections were acquired from the lung bases to the pubic symphysis. Coronal and sagittal reformats were performed. For radiation dose reduction, the following was used: automated exposure control, adjustment of mA and/or kV according to patient size. COMPARISON: [facility], CT, CT ABDOMEN PELVIS W CON, 08/01/2024, 21:21. FINDINGS: Image quality: Portions of the lower pelvis are suboptimally evaluated secondary to metallic streak artifact from bilateral hip arthroplasty. Lower Chest: Patchy opacities are present within the anterior aspect of the right upper as well as lower lobe. Minimal left effusion. Enlarged cardiophrenic node unchanged. URINARY: Right Kidney: Minimal prominence of the right renal collecting system, decreased compared to prior exam. Ureterovesicular stent is present. Right Ureter: Proximal ureteral stone demonstrates minimal forward advancement. Left Kidney: No stones or hydronephrosis. Left Ureter: No hydroureter. Bladder: Normal wall thickness. No stones. ABDOMEN: Liver: Cirrhotic appearance of the liver. Multifocal masses are identified, unchanged. Gallbladder: Removed. Biliary ducts: No biliary dilation. Pancreas: No ductal dilation. Previous appearance of masslike soft tissue density from the body/neck of the pancreas continuous with the mari hepatis and gastrohepatic ligament is stable. Spleen: Size is within normal limits. Adrenal Glands: No adrenal nodules. Stomach and Bowel: Normal colonic caliber, without significant wall thickening. Prominent colonic stool. Peritoneum: Prominent ascites, unchanged. No free air. Previously identified appearance of soft tissue densities within the upper abdomen are again identified. Ventral Wall: No hernia. Abdominal Nodes: No enlarged retroperitoneal or mesenteric lymph nodes. Vessels: Aorta and inferior vena cava are normal in size. PELVIS: Pelvic Organs: Unremarkable. Pelvic Nodes: Unremarkable. Miscellaneous: No inguinal hernias are seen. Bones: Scoliotic curvature with multilevel degenerative change. IMPRESSION: Interval placement of right ureterovesicular stent with relatively unchanged appearance of proximal right ureteral stone. Very minimal prominence of the renal collecting system, decreased compared to prior exam. Significant ascites. Previously identified appearance of soft tissue densities within the peritoneum suggestive peritoneal carcinomatosis are again noted without change. Stable appearance of right effusion with superimposed opacities possibly representing atelectasis. Dictated by: Madai Dick M.D. on 08/22/2024 at 18:19 Approved by: Madai Dick M.D. on 08/22/2024 at 18:25
[2024-08-22] MEDS: OXYCODONE IR 5 MG TABLET 10 MG PO (17:28)
[2024-08-22 17:35] LABS: Add Manual Diff / Slide Review NO; Basophils Absolute Auto 100 /uL (0-100); Basophils Percent Auto 0.6 % (0-2); Eosinophils Absolute Auto 100 /uL (0-450); Eosinophils Percent Auto 0.6 % (2-4); Hematocrit 33.7 % (36-46); Hemoglobin 10.6 g/dL (12.0-16.0); Lymphocytes Absolute Auto 1600 /uL (1100-4500); Lymphocytes Percent Auto 13.6 % (25-40); Mean Corpuscular HGB Conc 31.6 % (30-36); Mean Corpuscular Hemoglobin 29.4 PG (26-34); Monocytes Absolute Auto 900 /uL (0-900); Monocytes Percent Auto 7.6 % (3-14); Neutrophils Absolute Auto 9300 /uL (1500-7000); Neutrophils Percent Auto 77.6 % (50-75); Platelet Count 72 X10^3/uL (150-400); Red Blood Cell Count 3.63 X10^6/uL (4.0-5.2); Red Cell Distribution Width 17.7 % (11.6-14.8)
[2024-08-22 17:48] LABS: Alanine Aminotransferase 24 IU/L (<35); Albumin 3.2 g/dL (3.5-5.0); Alkaline Phosphatase 89 U/L (38-126); BUN Creatinine Ratio 29.3 (6-22); Bilirubin Total 0.7 mg/dL (0.2-1.3); Blood Urea Nitrogen 17 mg/dL (7-17); Calcium 9.2 mg/dL (8.4-10.2); Carbon Dioxide 35 mmol/L (22-32); Chloride 89 mmol/L (98-107); Estimated Glomerular Filt Rate > 60 mL/min (>60); Globulin 3.2 g/dL (1.7-4.1); Glucose 160 mg/dL (80-110); Sodium 129 mmol/L (137-145); Total Protein 6.4 g/dL (6.3-8.2)
[2024-08-22 17:49] LABS: Aspartate Aminotransferase 67 IU/L (14-36); Potassium 4.1 mmol/L (3.4-5.1)
[2024-08-22 18:00] LABS: HEMOLYSIS 63 (0-50); Lipase < 10 U/L (23-300)
--- NOTE | 2024-08-22 18:50 | PC.NURSE ---
Pt up to [facility]. Placed foam dressing over exposed decub ulcer
[2024-08-22] MEDS: levoFLOXacin 250 MG TABLET 750 MG PO (18:59)
--- NOTE | 2024-08-22 19:15 | PC.NURSE ---
Pt states that she doesn't want to go back to [facility]. Discussed that pt lives there and needs to find other options.
--- NOTE | 2024-08-22 19:43 | PC.NURSE ---
Pt requesting something for pain to go home on. Dr Kaur notified. MD order for prepack pain medications received.
[2024-08-22] MEDS: OXYCODONE/APAP 5/325 PREPACK 1 BOTTLE MISC (19:48)
== END 2024-08-22 20:10 | disposition home or self-care (01) ==
PROVIDERS: Emergency Medicine; Emergency Provider Student in an Organized Health Care Education/Training Program; PCP Family Medicine
DX: C78.89 Secondary malignant neoplasm of other digestive organs (principal); N39.0 Urinary tract infection, site not specified; D69.6 Thrombocytopenia, unspecified; L89.90 Pressure ulcer of unspecified site, unspecified stage; Z96.0 Presence of urogenital implants; U07.1 COVID-19
CPT/HCPCS: 74176; 80053; 81015; 83690; 85025; 87077; 87086; 99283; 99284; J1956